=== PATIENT | female | born 1935 | race Caucasian/White ===

== ENCOUNTER 2017-03-21 14:32 | Inpatient (IN) | payer MEDICARE ==
[2017-03-21] MEDS ORDERED: HYDROmorphone INJ* 1 MG/ML CARPUJECT SYRINGE IV SLOW PU ONE (15:13)
[2017-03-21] MEDS ORDERED: Ondansetron INJ* 2 MG/ML VIAL IV ONE (15:13)
[2017-03-21] MEDS ORDERED: NS 0.9% 1000 ML* 1,000 ML IV ONE (15:13)
[2017-03-21 15:51] LABS: Hematocrit 31 % (35-47); Hemoglobin 9.9 g/dl (12.0-16.0); Mean Corpuscular HGB Conc 32 g/dl (31-36); Mean Corpuscular Hemoglobin 26 pg (27-31); Mean Corpuscular Volume 82 fL (80-97); Mean Platelet Volume 7 um3 (7.4-10.4); Red Blood Count 3.77 10^6/ul (4.0-5.4); Red Cell Distribution Width 18 % (10.5-15); White Blood Count 13.7 10^3/ul (3.5-10.8)
[2017-03-21 16:05] LABS: Albumin 3.3 g/dL (3.2-5.2); BUN/Creatinine Ratio 30.1 (8-20); C Reactive Protein 17.53 mg/L (< 5.00); Calcium 9.6 mg/dL (8.6-10.3); EGFR African American 84.6 (>60); EGFR Non-African American 65.8 (>60); Globulin 3.5 g/dL (2-4); Potassium 3.6 mmol/L (3.5-5.0); Total Bilirubin 0.3 mg/dL (0.2-1.0); Total Protein 6.8 g/dL (6.4-8.9)
[2017-03-21] MEDS ORDERED: Cefepime(*) 2 GM in NS 0.9% 50 ML* 50 ML IVPB ONE (16:31)
[2017-03-21] MEDS ORDERED: Vancomycin per Pharmacy* NOTE FOLLOW UP PRN (16:36)
--- NOTE | 2017-03-21 16:55 | ED ---
Reyes Piedra Thomas, scribed for Lakshmi Doran MD on 03/21/17 at 1520 . Lower Extremity - HPI Summary HPI Summary: The patient is an 81 y/o F who complains of R leg pain that began two months ago. She had an MRI two weeks ago. She is referred here from her pain clinic after the MRI showed a lesion in L4 and L5. I have spoken with neurosurgery about the need to have her admitted to [facility] [place] [facility] [place]. She does not smoke or use alcohol. She does have DM. She rates the pain 9/10. It is aggravated and alleviated by nothing. It is constant. - History of Current Complaint Chief Complaint: EDBackInjuryPain Stated Complaint: RT LEG PAIN Time Seen by Provider: 03/21/17 15:05 Hx Obtained From: Patient Onset of Pain: Days - onset two months ago Onset/Duration: Still Present Severity Initially: Moderate Pain Intensity: 9 Pain Scale Used: 0-10 Numeric Timing: Constant Location: Is Discrete @ - R leg Associated Signs And Symptoms: Positive: Negative Aggravating Factor(s): Nothing Alleviating Factor(s): Nothing - Allergies/Home Medications Allergies/Adverse Reactions: Allergies Allergy/AdvReac Type Severity Reaction Status Date / Time No Known Allergies Allergy Verified 03/21/17 14:19 PMH/Surg Hx/FS Hx/Imm Hx Previously Healthy: No Endocrine/Hematology History: Reports: Hx Diabetes Cardiovascular History: Reports: Hx Hypertension Denies: Hx Pacemaker/ICD History: Denies: Hx Renal Disease Sensory History: Denies: Hx Hearing Aid Psychiatric History: Denies: Hx Panic Disorder - Cancer History Cancer Type, Location and Year: BREAST -Rt - MASTECTOMY Hx Chemotherapy: No Hx Radiation Therapy: No - Surgical History Surgery Procedure, Year, and Place: Rt MASTECTOMY - CANCER. APPENDECTOMY. CARDIAC STENTS- PT DOES NOT HAVE INFORMATION ON THEM - ONLY SCAN 1.5T Infectious Disease History: No Infectious Disease History: Denies: Traveled Outside the [place] in Last 30 Days - Family History Known Family History: Positive: Hypertension - Social History Alcohol Use: None Substance Use Type: Reports: None Smoking Status (MU): Never Smoked Tobacco Review of Systems Negative: Fever Positive: Other - R leg pain onset two months ago All Other Systems Reviewed And Are Negative: Yes Physical Exam Triage Information Reviewed: Yes Vital Signs On Initial Exam: Initial Vitals Temp Pulse Resp BP Pulse Ox 99.5 F 84 20 157/52 99 03/21/17 14:40 03/21/17 14:40 03/21/17 14:40 03/21/17 14:40 03/21/17 14:40 Vital Signs Reviewed: Yes Appearance: Positive: Well-Appearing, No Pain Distress Skin: Positive: Warm, Skin Color Reflects Adequate Perfusion, Dry Eyes: Positive: EOMI, DEVYN ENT: Positive: Pharynx normal, TMs normal Neck: Positive: Supple, Nontender Respiratory/Lung Sounds: Positive: Clear to Auscultation, Breath Sounds Present. Negative: Rales, Rhonchi, Wheezes Cardiovascular: Positive: RRR, Other - No gallop. Negative: Murmur, Rub Abdomen Description: Positive: Nontender, Soft, Other: - No rebound. Negative: Distended, Guarding Bowel Sounds: Positive: Present Musculoskeletal: Positive: Strength/ROM Intact, Other - There is L4L5 tenderness.. Negative: Edema Left, Edema Right Neurological: Positive: Sensory/Motor Intact, Alert, Oriented to Person Place, Time, CN Intact II-III, Other - She has normal DTRs. Normal flexion in the right leg. Psychiatric: Positive: Affect/Mood Appropriate Diagnostics - Vital Signs Vital Signs Temp Pulse Resp BP Pulse Ox 03/21/17 14:40 99.5 F 84 20 157/52 99 - Laboratory Lab Results: Lab Results 03/21/17 03/21/17 03/21/17 Range/Units 15:42 15:42 15:42 WBC 13.7 H (3.5-10.8) 10^3/ul RBC 3.77 L (4.0-5.4) 10^6/ul Hgb 9.9 L (12.0-16.0) g/dl Hct 31 L (35-47) % MCV 82 (80-97) fL MCH 26 L (27-31) pg MCHC 32 (31-36) g/dl RDW 18 H (10.5-15) % Plt Count 333 (150-450) 10^3/ul MPV 7 L (7.4-10.4) um3 Neut % (Auto) 76.0 (38-83) % Lymph % (Auto) 18.6 L (25-47) % [place] % (Auto) 4.8 (1-9) % Eos % (Auto) 0.1 (0-6) % Baso % (Auto) 0.5 (0-2) % Absolute Neuts (auto) 10.4 H (1.5-7.7) 10^3/ul Absolute Lymphs (auto) 2.5 (1.0-4.8) 10^3/ul Absolute Monos (auto) 0.7 (0-0.8) 10^3/ul Absolute Eos (auto) 0 (0-0.6) 10^3/ul Absolute Basos (auto) 0.1 (0-0.2) 10^3/ul Absolute Nucleated RBC 0.01 10^3/ul Nucleated RBC % 0 ESR Pending INR (Anticoag Therapy) 0.94 (0.89-1.11) Sodium 135 (133-145) mmol/L Potassium 3.6 (3.5-5.0) mmol/L Chloride 96 L (101-111) mmol/L Carbon Dioxide 31 (22-32) mmol/L Anion Gap 8 (2-11) mmol/L BUN 25 H (6-24) mg/dL Creatinine 0.83 (0.51-0.95) mg/dL Est GFR ( Amer) 84.6 (>60) Est GFR (Non-Af Amer) 65.8 (>60) BUN/Creatinine Ratio 30.1 H (8-20) Glucose 103 H (70-100) mg/dL Lactic Acid (0.5-2.0) mmol/L Calcium 9.6 (8.6-10.3) mg/dL Total Bilirubin 0.30 (0.2-1.0) mg/dL AST 13 (13-39) U/L ALT 12 (7-52) U/L Alkaline Phosphatase 71 (34-104) U/L C-Reactive Protein 17.53 H (< 5.00) mg/L Total Protein 6.8 (6.4-8.9) g/dL Albumin 3.3 (3.2-5.2) g/dL Globulin 3.5 (2-4) g/dL Albumin/Globulin Ratio 0.9 L (1-3) 03/21/ Range/Units 15:42 WBC (3.5-10.8) 10^3/ul RBC (4.0-5.4) 10^6/ul Hgb (12.0-16.0) g/dl Hct (35-47) % MCV (80-97) fL MCH (27-31) pg MCHC (31-36) g/dl RDW (10.5-15) % Plt Count (150-450) 10^3/ul MPV (7.4-10.4) um3 Neut % (Auto) (38-83) % Lymph % (Auto) (25-47) % [place] % (Auto) (1-9) % Eos % (Auto) (0-6) % Baso % (Auto) (0-2) % Absolute Neuts (auto) (1.5-7.7) 10^3/ul Absolute Lymphs (auto) (1.0-4.8) 10^3/ul Absolute Monos (auto) (0-0.8) 10^3/ul Absolute Eos (auto) (0-0.6) 10^3/ul Absolute Basos (auto) (0-0.2) 10^3/ul Absolute Nucleated RBC 10^3/ul Nucleated RBC % ESR INR (Anticoag Therapy) (0.89-1.11) Sodium (133-145) mmol/L Potassium (3.5-5.0) mmol/L Chloride (101-111) mmol/L Carbon Dioxide (22-32) mmol/L Anion Gap (2-11) mmol/L BUN (6-24) mg/dL Creatinine (0.51-0.95) mg/dL Est GFR ( Amer) (>60) Est GFR (Non-Af Amer) (>60) BUN/Creatinine Ratio (8-20) Glucose (70-100) mg/dL Lactic Acid 1.1 (0.5-2.0) mmol/L Calcium (8.6-10.3) mg/dL Total Bilirubin (0.2-1.0) mg/dL AST (13-39) U/L ALT (7-52) U/L Alkaline Phosphatase (34-104) U/L C-Reactive Protein (< 5.00) mg/L Total Protein (6.4-8.9) g/dL Albumin (3.2-5.2) g/dL Globulin (2-4) g/dL Albumin/Globulin Ratio (1-3) Result Diagrams: 03/21/17 15:42 03/21/17 15:42 Lab Statement: Any lab studies that have been ordered have been reviewed, and results considered in the medical decision making process. Lower Extremity Course/Dx - Course Course Of Treatment: 81 yo female with diabetes and low back / right leg pain since December sent to see Dr. Esquivel at the pain clinic MRI done 2 weeks ago shows enhancing lesion at L4-L5. Case has been discussed with Dr. Brandon for admission, plan is for biopsy first and then abx if need be as osteomyelitis is in the differential. Pt is neurologically intact - Diagnoses Provider Diagnoses: Back pain - Physician Notifications Discussed Care Of Patient With: Sampson Brandon Time Discussed With Above Provider: 16:35 Instructed by Provider To: Other - I consulted with Dr. Brandon, hospitalist, who will admit the patient to [facility] [place]. Discharge - Discharge Plan Condition: Fair Disposition: ADMITTED TO [facility] Referrals: Joie Maddox [Primary Care Provider] - The documentation as recorded by the Reyes rivas Thomas accurately reflects the service I personally performed and the decisions made by me, Lakshmi Doran MD.
[2017-03-21] MEDS ORDERED: Vancomycin(*) 750 MG in NS 0.9% 250 ML* 250 ML IVPB ONE (17:00)
[2017-03-21] MEDS ORDERED: Vancomycin(*) 0 MG in NS 0.9% 250 ML* 250 ML IVPB SCH (17:00)
[2017-03-21] MEDS ORDERED: Vancomycin(*) 1,000 MG VIAL IVPB SCH (17:00)
[2017-03-21 17:04] LABS: Erythrocyte Sed Rate 63 mm/Hr (0-40)
[2017-03-21] MEDS ORDERED: diPHENhydraMINE IV* 50 MG/ML 1 ml VIAL (BENADRYL) IV PRN (17:42)
[2017-03-21] MEDS ORDERED: diPHENhydraMINE IV* 50 MG/ML 1 ml VIAL (BENADRYL) ONE (17:44)
[2017-03-21] MEDS: NS 0.9% 1000 ML* 1,000 ML IV SCH (20:18)
[2017-03-21] MEDS: Cefepime(*) 2 GM in NS 0.9% 50 ML* 50 ML IVPB SCH (20:19)
[2017-03-21] MEDS: fentaNYL Patch Check Q Shift 1 NOTE SCH (20:24)
[2017-03-21] MEDS ORDERED: Docusate CAP* 100 MG PO SCH (21:00)
[2017-03-21] MEDS: Docusate CAP* 100 MG PO SCH (23:03)
[2017-03-21] MEDS: Heparin VIAL(*) 5000 UNITS/ML VIAL (FIVE THOUSAND) SUBCUT SCH (23:07)
[2017-03-22] MEDS: Vancomycin(*) 750 MG in NS 0.9% 250 ML* 250 ML IVPB SCH ×3 (01:40→17:34)
[2017-03-22] MEDS: Heparin VIAL(*) 5000 UNITS/ML VIAL (FIVE THOUSAND) SUBCUT SCH ×3 (05:48→20:09)
[2017-03-22] MEDS: oxyCODONE/Acetamin 5/325 MG* TAB PO PRN ×2 (05:53→14:06)
[2017-03-22] MEDS: fentaNYL Patch Check Q Shift 1 NOTE SCH ×2 (07:33→18:47)
--- NOTE | 2017-03-22 08:43 | PN ---
Progress Note - Progress Note Date of Service: 03/22/17 SOAP: Subjective: [] Patient with several week history of progressive back pain. Complains of severe right leg pain with activity. No left leg pain. No bowel or bladder issues. MRI done 2 weeks ago suggesting stenosis with possible infection. Patient showed up in pain clinic yesterday. No recent febrile illness or infection by history. 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 Plan: []She will need surgery Would recommend antibiotic treatment with Vancomycin Plan to decompress Mon if medically cleared
[2017-03-22 09:21] LABS: Hematocrit 30 % (35-47); Hemoglobin 9.7 g/dl (12.0-16.0); Mean Corpuscular HGB Conc 33 g/dl (31-36); Mean Corpuscular Hemoglobin 27 pg (27-31); Mean Corpuscular Volume 82 fL (80-97); Mean Platelet Volume 8 um3 (7.4-10.4); Red Blood Count 3.63 10^6/ul (4.0-5.4); Red Cell Distribution Width 18 % (10.5-15); White Blood Count 10.7 10^3/ul (3.5-10.8)
[2017-03-22 09:36] LABS: Albumin 2.9 g/dL (3.2-5.2); BUN/Creatinine Ratio 21.6 (8-20); Calcium 8.3 mg/dL (8.6-10.3); EGFR African American 96.6 (>60); EGFR Non-African American 75.1 (>60); Globulin 2.9 g/dL (2-4); Total Bilirubin 0.6 mg/dL (0.2-1.0); Total Protein 5.8 g/dL (6.4-8.9)
[2017-03-22] MEDS: Multivitamins/Minerals TAB PO SCH (09:59)
[2017-03-22] MEDS: predniSONE TAB* 10 MG PO SCH (10:00)
[2017-03-22] MEDS: Atorvastatin* 40 MG TAB PO SCH (10:00)
[2017-03-22] MEDS: Donepezil TAB* 5 MG PO SCH (10:00)
[2017-03-22] MEDS: Furosemide TAB* 20 MG PO SCH (10:00)
[2017-03-22] MEDS: Docusate CAP* 100 MG PO SCH ×2 (10:00→20:08)
[2017-03-22] MEDS: Calcium/Vitamin D TAB 250/125* TAB PO SCH (10:01)
[2017-03-22] MEDS: Magnesium Oxide TAB* 400 MG PO SCH (10:03)
[2017-03-22] MEDS: Famotidine TAB* 20 MG PO SCH (10:03)
[2017-03-22] MEDS: HYDROmorphone INJ* 1 MG/ML CARPUJECT SYRINGE IV SLOW PU PRN ×2 (10:06→20:06)
[2017-03-22 10:56] LABS: C Reactive Protein 82.02 mg/L (< 5.00)
[2017-03-22] MEDS ORDERED: Vancomycin Trough Check NOTE FOLLOW UP ONE (16:30)
[2017-03-22] MEDS: Cefepime(*) 2 GM in NS 0.9% 50 ML* 50 ML IVPB SCH (21:50)
[2017-03-23] MEDS: Vancomycin(*) 750 MG in NS 0.9% 250 ML* 250 ML IVPB SCH ×3 (00:30→17:46)
[2017-03-23] MEDS: NS 0.9% 1000 ML* 1,000 ML IV SCH ×2 (00:30→10:53)
[2017-03-23] MEDS: HYDROmorphone INJ* 1 MG/ML CARPUJECT SYRINGE IV SLOW PU PRN ×4 (03:55→21:12)
[2017-03-23] MEDS: Heparin VIAL(*) 5000 UNITS/ML VIAL (FIVE THOUSAND) SUBCUT SCH (05:23)
--- NOTE | 2017-03-23 09:33 | PN ---
Progress Note - Progress Note Date of Service: 03/23/17 SOAP: Subjective: []C/O severe right leg pain this am Did not discuss proposed surgery with her she doesnt think No complaints of left leg pain Objective: []Motor intact Severe right leg pain Assessment: []Stable pending surgery 03/24 Plan: []Surgery 03/[address] Brandon who feels she will be medically cleared for surgery 03/24
[2017-03-23] MEDS: Magnesium Oxide TAB* 400 MG PO SCH (10:56)
[2017-03-23] MEDS: Calcium/Vitamin D TAB 250/125* TAB PO SCH (10:56)
[2017-03-23] MEDS: Docusate CAP* 100 MG PO SCH ×2 (10:56→20:00)
[2017-03-23] MEDS: Famotidine TAB* 20 MG PO SCH (10:56)
[2017-03-23] MEDS: Furosemide TAB* 20 MG PO SCH (10:57)
[2017-03-23] MEDS: predniSONE TAB* 10 MG PO SCH (10:57)
[2017-03-23] MEDS: Donepezil TAB* 5 MG PO SCH (10:57)
[2017-03-23] MEDS: Multivitamins/Minerals TAB PO SCH (10:57)
[2017-03-23] MEDS: Atorvastatin* 40 MG TAB PO SCH (10:57)
[2017-03-23] MEDS: oxyCODONE/Acetamin 5/325 MG* TAB PO PRN ×2 (11:01→20:00)
--- NOTE | 2017-03-23 12:54 | PN ---
Subjective Date of Service: 03/23/17 Interval History: . pain with movement described no other s/sx reported plan for surgery early next week tolerating abx and iv opiates well. Family History: Unchanged from Admission Social History: Unchanged from Admission Past Medical History: Unchanged from Admission Objective Active Medications: . Acetaminophen (Tylenol Tab*) 650 mg PO Q4H PRN PRN Reason: FEVER/PAIN Atorvastatin Calcium (Lipitor*) 40 mg PO DAILY [facility] Last Admin: 03/23/17 10:57 Dose: 40 mg Calcium/Vitamin D (Oscal D Tab 250/125*) 2 tab PO DAILY [facility] Last Admin: 03/23/17 10:56 Dose: 2 tab Diphenhydramine HCl (Benadryl Iv*) 25 mg IV Q6H PRN PRN Reason: PRURITIS Last Admin: 03/21/17 17:45 Dose: 25 mg Docusate Sodium (Colace Cap*) 100 mg PO BID [facility] Last Admin: 03/23/17 10:56 Dose: 100 mg Donepezil HCl (Aricept Tab*) 5 mg PO DAILY [facility] Last Admin: 03/23/17 10:57 Dose: 5 mg Famotidine (Pepcid Tab*) 20 mg PO DAILY [facility] Last Admin: 03/23/17 10:56 Dose: 20 mg Fentanyl (Duragesic Patch 25 Mcg/Hr*) 25 mcg TRANSDERM Q72H [facility] Furosemide (Lasix Tab*) 20 mg PO DAILY [facility] Last Admin: 03/23/17 10:57 Dose: 20 mg Hydromorphone HCl (Dilaudid Inj*) 1 mg IV SLOW PU Q4H PRN PRN Reason: PAIN Last Admin: 03/23/17 09:17 Dose: 1 mg Sodium Chloride (Ns 0.9% 1000 Ml*) 1,000 mls @ 75 mls/hr IV PER RATE [facility] Last Admin: 03/23/17 10:53 Dose: 75 mls/hr Cefepime HCl 2 gm/ Sodium (Chloride) 50 mls @ 100 mls/hr IVPB Q24H [facility] Last Admin: 03/22/17 21:50 Dose: 100 mls/hr Vancomycin HCl 750 mg/ Sodium (Chloride) 250 mls @ 166.667 mls/hr IVPB Q8H [facility] Last Admin: 03/23/17 10:53 Dose: 166.667 mls/hr Magnesium Oxide (Magox 400 Tab*) 400 mg PO DAILY [facility] Last Admin: 03/23/17 10:56 Dose: 400 mg Multivitamins/Minerals (Theragran/Minerals Tab*) 1 tab PO DAILY [facility] Last Admin: 03/23/17 10:57 Dose: 1 tab Oxycodone/Acetaminophen (Percocet 5/325 Tab*) 1 tab PO Q8H PRN PRN Reason: PAIN Last Admin: 03/23/17 11:01 Dose: 1 tab Pharmacy Consult (Vancomycin Per Pharmacy*) 1 note FOLLOW UP . PRN PRN Reason: PER PROTOCOL Pharmacy Profile Note (Fentanyl Patch Check Q Shift) 1 note N/A 0700,1900 [facility] Last Admin: 03/22/17 18:47 Dose: 1 note Prednisone (Deltasone Tab*) 10 mg PO DAILY [facility] Last Admin: 03/23/17 10:57 Dose: 10 mg . Vital Signs 03/22/17 03/22/17 03/23/17 21:06 23:34 03:55 Temperature 98.7 F Pulse Rate 67 Respiratory 18 16 18 Rate Blood Pressure 111/42 (mmHg) O2 Sat by Pulse 100 Oximetry 03/23/17 03/23/17 03/23/17 04:55 09:17 11:01 Temperature Pulse Rate Respiratory 20 20 14 Rate Blood Pressure (mmHg) O2 Sat by Pulse Oximetry Oxygen Devices in Use Now: None Appearance: NAD at rest Eyes: No Scleral Icterus Ears/Nose/Mouth/Throat: Clear Oropharnyx Neck: Trachea Midline Respiratory: Symmetrical Chest Expansion and Respiratory Effort Cardiovascular: NL Sounds; No Murmurs; No JVD Abdominal: NL Sounds; No Tenderness; No Distention Extremities: No Edema Skin: No Rash or Ulcers Neurological: Alert and Oriented x 3 Lines/Tubes/Other Access: Clean, Dry and Intact Peripheral IV Nutrition: Taking PO's Result Diagrams: 03/22/17 09:15 03/22/17 09:15 Microbiology and Other Data: Microbiology 03/21/17 17:07 Aerobic Blood Culture - Preliminary Blood Venous Staphylococcus Epidermidis Anaerobic Blood Culture - Final Staphylococcus Epidermidis Blood Culture - Final Blood MRSA/MSSA (PCR) - Final Mrsa Negative S.aureus Negative 03/21/17 23:28 Aerobic Blood Culture - Final Blood Venous Staphylococcus Epidermidis Anaerobic Blood Culture - Final Staphylococcus Epidermidis Blood Culture - Final Assess/Plan/Problems-Billing . Assessment: 81 yo female with osteomyelitis vs epidural abscess and BCX growing staph epi... Plan for neurosurgery early next week. Appropriate cardiac risk for surgery -- recognizing she did well with cardiac surgery earlier this year. - Patient Problems (1) Diabetes type 2, controlled Current Visit: Yes Status: Acute Priority: High Code(s): E11.9 - TYPE 2 DIABETES MELLITUS WITHOUT COMPLICATIONS Comment: - Add long acting agent and sliding scale in anticipation of surgery - hold metformin in hospital - [facility] diet - taper off prednisone... (2) Epidural abscess Current Visit: Yes Status: Acute Priority: High Code(s): G06.2 - EXTRADURAL AND SUBDURAL ABSCESS, UNSPECIFIED Comment: - IV Vanco and Cefepime - BCX growing staph epi --> can downgrade abx...likely ceftriaxone...will d/w ID (3) Intractable low back pain Current Visit: Yes Status: Acute Priority: High Code(s): M54.5 - LOW BACK PAIN Comment: - IV and transderm. opiates (4) Hyperlipidemia Current Visit: Yes Status: Acute Code(s): E78.5 - HYPERLIPIDEMIA, UNSPECIFIED SNOMED Code(s): 63776887
--- NOTE | 2017-03-23 12:55 | PN ---
Subjective Interval History: pain with movement described no other s/sx reported plan for surgery ealry next week tolerating abx and iv opiates well. bcx growing staph epi... . Family History: Unchanged from Admission Social History: Unchanged from Admission Past Medical History: Unchanged from Admission Objective Active Medications: . Acetaminophen (Tylenol Tab*) 650 mg PO Q4H PRN PRN Reason: FEVER/PAIN Atorvastatin Calcium (Lipitor*) 40 mg PO DAILY [facility] Last Admin: 03/23/17 10:57 Dose: 40 mg Calcium/Vitamin D (Oscal D Tab 250/125*) 2 tab PO DAILY [facility] Last Admin: 03/23/17 10:56 Dose: 2 tab Diphenhydramine HCl (Benadryl Iv*) 25 mg IV Q6H PRN PRN Reason: PRURITIS Last Admin: 03/21/17 17:45 Dose: 25 mg Docusate Sodium (Colace Cap*) 100 mg PO BID [facility] Last Admin: 03/23/17 10:56 Dose: 100 mg Donepezil HCl (Aricept Tab*) 5 mg PO DAILY [facility] Last Admin: 03/23/17 10:57 Dose: 5 mg Famotidine (Pepcid Tab*) 20 mg PO DAILY [facility] Last Admin: 03/23/17 10:56 Dose: 20 mg Fentanyl (Duragesic Patch 25 Mcg/Hr*) 25 mcg TRANSDERM Q72H [facility] Furosemide (Lasix Tab*) 20 mg PO DAILY [facility] Last Admin: 03/23/17 10:57 Dose: 20 mg Hydromorphone HCl (Dilaudid Inj*) 1 mg IV SLOW PU Q4H PRN PRN Reason: PAIN Last Admin: 03/23/17 09:17 Dose: 1 mg Sodium Chloride (Ns 0.9% 1000 Ml*) 1,000 mls @ 75 mls/hr IV PER RATE [facility] Last Admin: 03/23/17 10:53 Dose: 75 mls/hr Cefepime HCl 2 gm/ Sodium (Chloride) 50 mls @ 100 mls/hr IVPB Q24H [facility] Last Admin: 03/22/17 21:50 Dose: 100 mls/hr Vancomycin HCl 750 mg/ Sodium (Chloride) 250 mls @ 166.667 mls/hr IVPB Q8H [facility] Last Admin: 03/23/17 10:53 Dose: 166.667 mls/hr Magnesium Oxide (Magox 400 Tab*) 400 mg PO DAILY [facility] Last Admin: 03/23/17 10:56 Dose: 400 mg Multivitamins/Minerals (Theragran/Minerals Tab*) 1 tab PO DAILY [facility] Last Admin: 03/23/17 10:57 Dose: 1 tab Oxycodone/Acetaminophen (Percocet 5/325 Tab*) 1 tab PO Q8H PRN PRN Reason: PAIN Last Admin: 03/23/17 11:01 Dose: 1 tab Pharmacy Consult (Vancomycin Per Pharmacy*) 1 note FOLLOW UP . PRN PRN Reason: PER PROTOCOL Pharmacy Profile Note (Fentanyl Patch Check Q Shift) 1 note N/A 0700,1900 [facility] Last Admin: 03/22/17 18:47 Dose: 1 note Prednisone (Deltasone Tab*) 10 mg PO DAILY [facility] Last Admin: 03/23/17 10:57 Dose: 10 mg . Vital Signs 03/22/17 03/22/17 03/23/17 21:06 23:34 03:55 Temperature 98.7 F Pulse Rate 67 Respiratory 18 16 18 Rate Blood Pressure 111/42 (mmHg) O2 Sat by Pulse 100 Oximetry 03/23/17 03/23/17 03/23/17 04:55 09:17 11:01 Temperature Pulse Rate Respiratory 20 20 14 Rate Blood Pressure (mmHg) O2 Sat by Pulse Oximetry Oxygen Devices in Use Now: None Appearance: NAD Eyes: No Scleral Icterus Ears/Nose/Mouth/Throat: Clear Oropharnyx Respiratory: Symmetrical Chest Expansion and Respiratory Effort Cardiovascular: NL Sounds; No Murmurs; No JVD Abdominal: NL Sounds; No Tenderness; No Distention Extremities: No Edema Skin: No Rash or Ulcers Neurological: Alert and Oriented x 3 Lines/Tubes/Other Access: Clean, Dry and Intact Peripheral IV Nutrition: Taking PO's Result Diagrams: 03/22/17 09:15 03/22/17 09:15 Additional Lab and Data: . Microbiology and Other Data: Microbiology 03/21/17 17:07 Aerobic Blood Culture - Preliminary Blood Venous Staphylococcus Epidermidis Anaerobic Blood Culture - Final Staphylococcus Epidermidis Blood Culture - Final Blood MRSA/MSSA (PCR) - Final Mrsa Negative S.aureus Negative 03/21/17 23:28 Aerobic Blood Culture - Final Blood Venous Staphylococcus Epidermidis Anaerobic Blood Culture - Final Staphylococcus Epidermidis Blood Culture - Final Assess/Plan/Problems-Billing . Assessment: 81 yo female with osteomyelitis vs epidural abscess and BCX growing staph epi... Plan for neurosurgery early next week. Appropriate cardiac risk for proceeding with surgery -- recognizing she did well with cardiac surgery earlier this year -- also recognizing the need to accomplish infectious source control. On statin Glucose levels are favorable - Patient Problems (1) Diabetes type 2, controlled Current Visit: Yes Status: Acute Priority: High Code(s): E11.9 - TYPE 2 DIABETES MELLITUS WITHOUT COMPLICATIONS Comment: - Add long acting agent and sliding scale in anticipation of surgery - hold metformin in hospital - [facility] diet - taper off prednisone... (2) Epidural abscess Current Visit: Yes Status: Acute Priority: High Code(s): G06.2 - EXTRADURAL AND SUBDURAL ABSCESS, UNSPECIFIED Comment: - IV Vanco and Cefepime - BCX growing staph epi --> can downgrade abx...likely ceftriaxone...will d/w ID (3) Intractable low back pain Current Visit: Yes Status: Acute Priority: High Code(s): M54.5 - LOW BACK PAIN Comment: - IV & transderm. opiates (4) Hyperlipidemia Current Visit: Yes Status: Acute Code(s): E78.5 - HYPERLIPIDEMIA, UNSPECIFIED SNOMED Code(s): 76757098 Comment: - continue statin therapy
[2017-03-23] MEDS ORDERED: Dextrose 50% Syringe 50 ML* 25 GM/50 ML SYRINGE IV PUSH PRN (12:57)
[2017-03-23] MEDS: fentaNYL Patch Check Q Shift 1 NOTE SCH ×2 (16:12→18:45)
[2017-03-23] MEDS: Insulin LISPRO* 1 UNITS UNIT SUBCUT SCH ×2 (17:45→20:04)
[2017-03-23] MEDS: Acetaminophen TAB* 325 MG PO PRN (18:00)
[2017-03-23] MEDS: fentaNYL PATCH 25 MCG/HR TRANSDERM SCH (18:44)
--- NOTE | 2017-03-23 19:16 | HP ---
CC: KIAH Montenegro* HISTORY AND PHYSICAL: DATE OF ADMISSION: 03/21/17 TIME OF MY EVALUATION: 4 p.m. PRIMARY CARE PROVIDER: KIAH Montenegro. CHIEF COMPLAINT: Excruciating right leg pain. HISTORY OF PRESENT ILLNESS: Ms. Barclay is an 81-year-old female who was referred to the [facility] by nurse practitioner Partha. The patient states that she has had severe pain since December. The patient has been experiencing progressively worse pain during that time. She had an MRI on 03/10, and this was sent to [facility] for review for [id number] spinal canal stenosis and right neuroforaminal stenosis. The patient was in exquisite pain and unable to walk effectively. Pain medications were ineffective. She has been on a course of oral steroids and is approximately done with that taper. She is using a fentanyl patch as well as oxycodone and acetaminophen consistently. The medications are not helping. She cannot ambulate and lying down makes the pain somewhat better, so does not move. In review of the MRI, there was concern with the neuroradiologist that there was an epidural collection that might represent osteomyelitis or epidural abscess. The patient was referred to the emergency room for admission and the hospitalist were contacted to facilitate. PAST MEDICAL HISTORY: 1. Hyperlipidemia. 2. AVR in June 2016. 3. Hypertension. 4. Diabetes. 5. Breast cancer. OUTPATIENT MEDICATIONS: 1. Prednisone 10 mg by mouth daily with the taper ending Friday03/24/17. 2. Oxycodone 5/325 mg by mouth every 8 hours. 3. Fentanyl patch 25 mcg every 3 days. 4. Metformin 750 mg at night. 5. Donepezil 5 mg tablet by mouth daily. 6. Lipitor 40 mg by mouth daily. 7. Stool softener - Colace 100 mg by mouth twice daily. 8. Ranitidine 150 mg by mouth daily. 9. Furosemide 20 mg by mouth daily. 10. Multivitamin one tablet by mouth once daily. ALLERGIES: No known drug allergies. FAMILY HISTORY: Reviewed, but noncontributory based on this current presentation. SOCIAL HISTORY: The patient is retired. There is no alcohol or tobacco use. REVIEW OF SYSTEMS: A 14 point review of systems was accomplished at the bedside. This was largely negative except for the pertinent positives mentioned above in the HPI and past medical history with her right leg dominating all of her answers. PHYSICAL EXAMINATION GENERAL APPEARANCE: Elderly woman appears stated age, in no apparent distress. Poor medical office assistant. VITAL SIGNS: Temperature 99.5 down to 97.8 following Tylenol administration, pulse rate consistently 70s to 80s, respirations 20, oxygen saturation high 90s on room air, blood pressure 120s to 130s/50s to 70s. HEENT: Oropharynx is clear. Mucous membranes are moist. LUNGS: Clear anteriorly and posteriorly. She has a sternal scar consistent with a previous cardiac surgery. NEUROLOGIC: She does not have any perceivable weakness, I did not ambulate her secondary to her pain. PSYCH: Normal affect. No acute anxiety or depression. She is accompanied by her . SKIN: Dry and intact. No rashes, lesions, or breakdown. There is no point tenderness over her spine. DIAGNOSTIC STUDIES/LAB DATA: White blood cell count elevated at 13.7, hemoglobin 9.9, platelets 333. Blood chemistries generally unremarkable save an elevated BUN- to-creatinine ratio with 25/0.83 and a ratio of 30.1, glucose 103, CRP elevated at 17.53. LFTs are normal. Protein levels are normal with a total protein and albumin of 6.8 and 3.3, respectively. A coagulation parameters were normal with an INR of 0.94. The MRI was described in the HPI. IMPRESSION AND PLAN: Ms. Barclay is an 82-year-old female who was admitted for potential osteomyelitis versus epidural abscess versus diskitis. MRI results are being reviewed by Dr. Abhinav Daniels of Neurosurgery and the neuroradiology team. The plan at this point is to admit for a possible biopsy versus debridement with Neurosurgery in the next few days. In terms of treating her osteomyelitis, I am going to start vancomycin and cefepime as a routine broad spectrum antibiotics. Blood cultures were drawn and are pending. The patient will have a pain control with her fentanyl and IV opioids. The patient will continue her prednisone taper until 03/24/17. I may continue that if she is going directly to surgery to decrease the risk of adrenal insufficiency though that would be small. We will continue other outpatient medications as prescribed. CARDIAC RISK STRATIFICATION: With the exception of the patient's recent aortic valve repair for stenosis and her diabetes, she has no obvious risk factors, obviously her age puts her at higher risk, but she has a good normal exercise tolerance and she denies any chest pain or shortness of breath whatsoever. She tolerated cardiac surgery within the year and I think there is not any indication for a cardiac workup. She is on statin and is not hypertensive. There is no indication of ongoing pulmonary disease nor history of such. Given her presentation and inability to walk, risk, benefit, analysis favors surgery at the earliest possible time and I do not believe further cardiac testing is in order. TIME SPENT: Total time taken to admit Ms. Barclay was 75 minutes, greater than half that time was spent going over the history and physical examination at the bedside with the patient and her and explaining plan of care directly to them. [id number]/[facility] #: [id number] JACOB
[2017-03-23] MEDS: Cefepime(*) 2 GM in NS 0.9% 50 ML* 50 ML IVPB SCH (20:01)
[2017-03-23] MEDS ORDERED: Ketorolac INJ* 15 MG/ML 1 ML VIAL IV ONE (21:42)
[2017-03-23] MEDS ORDERED: Ketorolac INJ* 15 MG/ML 1 ML VIAL ONE (22:01)
[2017-03-24] MEDS: Vancomycin(*) 750 MG in NS 0.9% 250 ML* 250 ML IVPB SCH ×3 (01:13→16:49)
[2017-03-24] MEDS: HYDROmorphone INJ* 1 MG/ML CARPUJECT SYRINGE IV SLOW PU PRN ×2 (05:25→11:41)
[2017-03-24] MEDS: NS 0.9% 1000 ML* 1,000 ML IV SCH (05:25)
[2017-03-24] MEDS: Insulin LISPRO* 1 UNITS UNIT SUBCUT SCH ×4 (09:01→21:47)
--- NOTE | 2017-03-24 11:34 | ECHO ---
Patient: SHANTAL THORNE [facility] Rec#: [id number] : 1935 Date: 03/24/2017 Age: 81y Height: 160.02 cm / 63.0 in Weight: 49.44 kg / 109.0 lbs Sex: F BSA: 1.49 Room#: 417 Admit Date#: 03/21/2017 Type: Inpatient Referring: Raul Faulkner MD Reading: Abiel Zacarias MD Call Center Support Representative: Oly Jacques,MEKACS,RDMS CC: Cedrick Chavis NP CC: Shon Mcclure MD Transthoracic Echocardiogram Indication: Bacteremia BP: 130/48 HR: 84 Rhythm: NSR Findings History: AOV replacement, HTN, HLD, DM, breast cancer Technical Comments: The study quality is fair. Left Ventricle: The left ventricular chamber size is normal. Mild concentric left ventricular hypertrophy is observed. Global left ventricular wall motion and contractility are within normal limits. The estimated ejection fraction is 55-60%. Abnormal left ventricular diastolic function is observed. Left Atrium: The left atrium is mildly dilated. Right Ventricle: The right ventricular chamber size and systolic function are within normal limits. Right Atrium: The right atrium appears normal. Aortic Valve: There is no evidence of aortic regurgitation. The mean gradient of the aortic valve is 12.8 mmHg. The aortic valve area, by peak velocities, is calculated at 1.3 cm2. A bio-prosthetic aortic valve is present. The bio-prosthetic aortic valve appears to be functioning normally. Mitral Valve: There is mitral annular calcification. The mitral valve leaflets are mildly thickened. There is trace to mild mitral regurgitation. There is no evidence of mitral stenosis. Tricuspid Valve: The tricuspid valve leaflets are normal. There is mild to moderate tricuspid regurgitation. There is evidence of mild pulmonary hypertension. Pulmonic Valve: The pulmonic valve structure is not well visualized. There is mild to moderate pulmonic regurgitation. Pericardium: There is no significant pericardial effusion. Aorta: The aortic root appears normal. The aortic arch is not well visualized. Pulmonary Artery: The main pulmonary artery is not well visualized. Venous: The inferior vena cava appears normal in size. There is a greater than 50% respiratory change in the inferior vena cava dimension. Conclusions Global left ventricular wall motion and contractility are within normal limits. The estimated ejection fraction is 55-60%. A bio-prosthetic aortic valve is present. The mean gradient of the aortic valve is 12.8 mmHg. The bio-prosthetic aortic valve appears to be functioning normally. There is trace to mild mitral regurgitation. There is mild to moderate tricuspid regurgitation. There is evidence of mild pulmonary hypertension. There is no significant pericardial effusion. Image quaility not good enough to exclude diagnosis of valvular masses/vegetations Measurements Name Value Normal Range RVIDd (AP) 2D 2.4 cm (0.9 - 2.6) RVDdMajor (2D) 2.5 cm (2.2 - 4.4) RAd ISD 4CH 4.8 cm (3.4 - 4.9) RA (A4C)W 3.3 cm (2.9 - 4.6) IVSd (2D) 1.1 cm (0.6 - 1) LVPWd (2D) 1.2 cm (0.6 - 1) LVIDd (2D) 3.6 cm (3.6 - 5.4) LVIDs (2D) 2.1 cm - LV FS (2D) 43 % (25 - 45) Aortic Annulus 1.7 cm (1.4 - 2.6) Ao root diameter (2D) 2.4 cm (2.1 - 3.5) Ascending Ao 2.3 cm (2.1 - 3.4) LA dimension (AP) 2D 3.9 cm (2.3 - 3.8) LAd ISD 4CH 5.1 cm (2.9 - 5.3) LA ISD 4CH W 4 cm (2.5 - 4.5) Name Value Normal Range LA ESV SP 4CH (A/L) 45.78 ml - LA ESV SP 2CH (A/L) 64.39 ml - LA ESV BP (A/L) 54.34 ml - LA ESV BP (A/L) index 36 ml/m2 - LA ESV SP 4CH (MOD) 42.47 ml - LA ESV SP 2CH (MOD) 60.35 ml - Name Value Normal Range MV E-wave Vmax 1.4 m/sec - MV deceleration time 187 msec - MV A-wave Vmax 1 m/sec - MV E:A ratio 1.4 ratio - P. vein S-wave Vmax 0.4 m/sec - P. vein D-wave Vmax 0.5 m/sec - P. vein S:D Vmax ratio 0.8 ratio - P. vein A-wave duration 66.5 msec - Name Value Normal Range AV Vmax 2.4 m/sec - AV VTI 59 cm - AV peak gradient 23 mmHg - AV mean gradient 12.8 mmHg - LVOT diameter 2 cm - LVOT Vmax 1 m/sec - LVOT VTI 25.5 cm - LVOT peak gradient 4 mmHg - LVOT mean gradient 2 mmHg - SV LVOT 78.33 ml - GUNNAR (continuity Vmax) 1.3 cm2 - GUNNAR (continuity VTI) 1.4 cm2 - Name Value Normal Range MV Vmax 1.7 m/sec - MV VTI 41.7 cm - MV peak gradient 11.5 mmHg - MV mean gradient 3.9 mmHg - MV PHT 52 msec - MVA (PHT) 4.2 cm2 - MVA (continuity VTI) 1.9 cm2 - Name Value Normal Range TR Vmax 3.1 m/sec - TR peak gradient 38 mmHg - RAP 3 mmHg - RVSP 41 mmHg - IVC diameter 1.6 cm - Name Value Normal Range PV Vmax 0.8 m/sec - PV peak gradient 2.6 mmHg -
[2017-03-24] MEDS: Famotidine TAB* 20 MG PO SCH (11:43)
[2017-03-24] MEDS: Furosemide TAB* 20 MG PO SCH (11:43)
[2017-03-24] MEDS: Calcium/Vitamin D TAB 250/125* TAB PO SCH (11:43)
[2017-03-24] MEDS: Multivitamins/Minerals TAB PO SCH (11:43)
[2017-03-24] MEDS: Donepezil TAB* 5 MG PO SCH (11:44)
[2017-03-24] MEDS: Atorvastatin* 40 MG TAB PO SCH (11:44)
[2017-03-24] MEDS: predniSONE TAB* 10 MG PO SCH (11:44)
[2017-03-24] MEDS: Magnesium Oxide TAB* 400 MG PO SCH (11:44)
[2017-03-24] MEDS: Docusate CAP* 100 MG PO SCH ×2 (11:44→21:44)
--- NOTE | 2017-03-24 12:42 | CONS ---
CONSULTATION REPORT: DATE OF CONSULT: 03/24/17 REQUESTING PHYSICIAN: Dr. Brandon. CONSULTING SERVICE: Infectious Disease. REASON FOR CONSULTATION: Staph bacteremia, spine infection. IMPRESSION: 1. Septicemia due to coagulase negative staph, staphylococcus epidermidis / blood culture bottles. MRI done at [facility] shows abnormal marrow signal in the lumbar vertebral bodies and an epidural collection. 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 She has infective endocarditis. She has no other focus of pain to suggest another foci. 2. Diabetes. RECOMMENDATIONS: Agree with vancomycin, goal trough 15 to 20 and repeat the blood cultures and echocardiogram is pending, its findings are not relevant for the need for spinal surgery. HISTORY OF PRESENT ILLNESS: This is an 81-year-old woman with a bioprosthetic aortic valve admitted with back pain since November and abnormal MRI. She had her valve replacement last June, which was complicated by failure to heal the distal pole of her sternal wound. She finally had removal of her sternal wire and wound packing, they are unclear if they had any outpatient antibiotic therapy, her culture was done at [facility]. The wound itself never healed over until the end of November. About that time she developed low back pain that has been progressive and severe since then, it radiates into her right leg. She does not have weakness, just hurts to walk because of the back and leg pain. She had an MRI ordered as an outpatient by Dr. Esquivel with findings as noted above. She was directed to the hospital and the results came back. Dr. Brandon administered her on vancomycin and cefepime. Blood cultures were taken , 10/01 now growing staph epidermidis. She has been seen by Dr. Daniels, plan is for decompression. She has had no fever since arriving here, but has had chills at home as well as anorexia and weight loss for the last 3 months. She does not have any sternal wound any longer. She does not have painful joints. She has no prosthetic material present other than a heart valve and a right breast prosthesis. Her back and leg pain is unchanged. She has had no fever, chills or sweats today. PAST MEDICAL HISTORY: 1. Hyperlipidemia. 2. Status post aortic valve replacement in June 2016 at [facility] [place]. 3. Hypertension. 4. Diabetes. 5. Breast cancer. 6. 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 MEDICATIONS: 1. Tylenol. 2. Lipitor. 3. Calcium. 4. Docusate. 5. Donepezil. 6. Famotidine. 7. Cefepime 2 g daily. 8. Vancomycin 750 mg every 8hours. 9. Fentanyl patch. 10. Prednisone. ALLERGIES: No known drug allergies. FAMILY HISTORY: No recurrent infections. Parents are . SOCIAL HISTORY: She lives in [place] with her . She has no travel or sick contacts. REVIEW OF SYSTEMS: A 14-point review of systems is all negative except as noted above in history of present illness. PHYSICAL EXAMINATION: Vital Signs: Temperature 36.6, heart rate 68, respiratory rate 16, blood pressure 130/48, O2 sat 100% on room air. In general , she is awake, not in distress. Neurologic: She is oriented x2. Follows all commands. Moves all of her extremities. Strength is 5/5 in quadriceps, tibialis anterior and gastrocnemius bilaterally. Sensation is intact to light touch in the bilateral lower extremities. There is no lower extremity clonus bilaterally. HEENT: There is a left conjunctival hemorrhage. Oropharynx, no lesions. Neck is supple without nuchal or rigidity. Lymph Nodes: There is no cervical, supraclavicular, inguinal, axillary or epitrochlear lymphadenopathy. Heart has regular rate and rhythm with a 2/6 systolic murmur. Lungs: Clear to auscultation bilaterally. Chest: Sternal incision is healed. There is no click or wound. Abdomen: Soft, nontender, nondistended. There are bowel sounds present. Skin: There is no rash or splinter hemorrhages. Musculoskeletal: There is lumbar spine tenderness to palpation. There is no joint synovitis. LABORATORY DATA: White blood cell count 10, hemoglobin 9, platelets 255,000. Creatinine is 0.7, CRP 82, vancomycin trough 18. Please see impressions and recommendations outlined above, which I have discussed with LOW Reyez. Thank you for asking me to see Ms. Barclay in consultation. [id number]/[facility] #: [id number] MTDD
[2017-03-24] MEDS: fentaNYL Patch Check Q Shift 1 NOTE SCH ×2 (13:36→21:50)
[2017-03-24] MEDS ORDERED: Lidocaine 1% MPF wEPI 200,000* 30 ML SDV ONE (15:23)
[2017-03-24] MEDS ORDERED: Bacitracin IV* 50,000 UNITS INJ ONE (15:23)
[2017-03-24] MEDS ORDERED: Thrombin 5,000 UNITS* 1 APPLIC KIT - topical use - TOPICAL ONE (15:24)
[2017-03-24] MEDS ORDERED: Propofol* 10 MG/ML 20 ML BTL IV PUSH ONE (15:41)
[2017-03-24] MEDS ORDERED: fentaNYL* 50 MCG/ML 2 ML VIAL (100 MCG VIAL) ONE ×3 (15:42→19:26)
[2017-03-24] MEDS ORDERED: Atracurium* 10 MG/ML 10 ML VIAL ONE (15:43)
--- NOTE | 2017-03-24 17:20 | PN ---
Subjective Date of Service: 03/24/17 Interval History: Patient had pain overnight which was adequately controlled with current pain medication. Patient has pain with movement, but does not complain of significant pain at rest. Patient is moderately forgetful, but it A+Ox3. Patient denies CP/SOB, N/V, Abdominal pain, constipation, diarrhea, changes in urine, or any other new pain. Patient was on 2L NC overnight which was successfully D/C'd by author without hypoxia at beginning of shift. Family History: Unchanged from Admission Social History: Unchanged from Admission Past Medical History: Unchanged from Admission Objective Active Medications: Acetaminophen (Tylenol Tab*) 650 mg PO Q4H PRN PRN Reason: FEVER/PAIN Last Admin: 03/23/17 18:00 Dose: 650 mg Atorvastatin Calcium (Lipitor*) 40 mg PO DAILY [facility] Last Admin: 03/24/17 11:44 Dose: 40 mg Calcium/Vitamin D (Oscal D Tab 250/125*) 2 tab PO DAILY [facility] Last Admin: 03/24/17 11:43 Dose: 2 tab Dextrose (D50w Syringe 50 Ml*) 12.5 gm IV PUSH .FOR FS < 60 - SS PRN PRN Reason: FS < 60 Diphenhydramine HCl (Benadryl Iv*) 25 mg IV Q6H PRN PRN Reason: PRURITIS Last Admin: 03/21/17 17:45 Dose: 25 mg Docusate Sodium (Colace Cap*) 100 mg PO BID [facility] Last Admin: 03/24/17 11:44 Dose: 100 mg Donepezil HCl (Aricept Tab*) 5 mg PO DAILY [facility] Last Admin: 03/24/17 11:44 Dose: 5 mg Famotidine (Pepcid Tab*) 20 mg PO DAILY [facility] Last Admin: 03/24/17 11:43 Dose: 20 mg Fentanyl (Duragesic Patch 25 Mcg/Hr*) 25 mcg TRANSDERM Q72H [facility] Last Admin: 03/23/17 18:44 Dose: 25 mcg Furosemide (Lasix Tab*) 20 mg PO DAILY [facility] Last Admin: 03/24/17 11:43 Dose: 20 mg Hydromorphone HCl (Dilaudid Inj*) 1 mg IV SLOW PU Q4H PRN PRN Reason: PAIN Last Admin: 03/24/17 11:41 Dose: 1 mg Sodium Chloride (Ns 0.9% 1000 Ml*) 1,000 mls @ 75 mls/hr IV PER RATE [facility] Last Admin: 03/24/17 05:25 Dose: 75 mls/hr Vancomycin HCl 750 mg/ Sodium (Chloride) 250 mls @ 166.667 mls/hr IVPB Q8H [facility] Last Admin: 03/24/17 16:49 Dose: Not Given Insulin Human Lispro (Humalog*) 0 units SUBCUT ACHS ROLANDO PRN Reason: Protocol Last Admin: 03/24/17 16:49 Dose: Not Given Magnesium Oxide (Magox 400 Tab*) 400 mg PO DAILY [facility] Last Admin: 03/24/17 11:44 Dose: 400 mg Multivitamins/Minerals (Theragran/Minerals Tab*) 1 tab PO DAILY [facility] Last Admin: 03/24/17 11:43 Dose: 1 tab Oxycodone/Acetaminophen (Percocet 5/325 Tab*) 1 tab PO Q8H PRN PRN Reason: PAIN Last Admin: 03/23/17 20:00 Dose: 1 tab Pharmacy Consult (Vancomycin Per Pharmacy*) 1 note FOLLOW UP . PRN PRN Reason: PER PROTOCOL Pharmacy Profile Note (Fentanyl Patch Check Q Shift) 1 note N/A 0700,[id number] [facility] Last Admin: 03/24/17 13:36 Dose: 1 note Pharmacy Profile Note (Vancomycin Trough Check) 1 note FOLLOW UP 09 ONE Stop: 03/25/17 09:01 Prednisone (Deltasone Tab*) 10 mg PO DAILY [facility] Last Admin: 03/24/17 11:44 Dose: 10 mg Vital Signs 03/23/17 03/23/17 03/23/17 17:31 18:44 20:00 Temperature Pulse Rate Respiratory 16 16 18 Rate Blood Pressure (mmHg) O2 Sat by Pulse Oximetry 03/23/17 03/23/17 03/23/17 21:12 22:00 22:12 Temperature Pulse Rate Respiratory 16 16 16 Rate Blood Pressure (mmHg) O2 Sat by Pulse Oximetry 03/23/17 03/24/17 03/24/17 23:53 02:49 05:25 Temperature 97.7 F 98.0 F Pulse Rate 70 70 Respiratory 16 16 18 Rate Blood Pressure 128/49 169/62 (mmHg) O2 Sat by Pulse 100 100 Oximetry 03/24/17 03/24/17 03/24/17 07:53 08:00 11:41 Temperature 97.9 F Pulse Rate 68 Respiratory 16 16 22 Rate Blood Pressure 130/48 (mmHg) O2 Sat by Pulse 100 Oximetry 03/24/17 03/24/17 11:58 12:41 Temperature Pulse Rate 75 Respiratory 17 16 Rate Blood Pressure 138/51 (mmHg) O2 Sat by Pulse 95 Oximetry Oxygen Devices in Use Now: None Appearance: Patient is an 81yo female sitting comfortably in hospital bed in [facility]. Eyes: No Scleral Icterus, PERRLA, - - Patient has several subconjunctival hemorrhages in left eye. Ears/Nose/Mouth/Throat: NL Teeth, Lips, Gums, Clear Oropharnyx, Mucous Membranes Moist Neck: NL Appearance and Movements; NL JVP Respiratory: Symmetrical Chest Expansion and Respiratory Effort, Clear to Auscultation Cardiovascular: NL Sounds; No Murmurs; No JVD, RRR, No Edema, - - Pulses 2+ in B /L radial, PT/DP areas. Abdominal: NL Sounds; No Tenderness; No Distention, No Hepatosplenomegaly Lymphatic: No Cervical Adenopathy Extremities: No Edema Skin: No Rash or Ulcers Neurological: Alert and Oriented x 3, NL Muscle Strength and Tone, - - Decreased sensation on dorsum of R foot and lateral aspect of R calf. Patellar and achilles reflexes 2+ B/L. Strength Result Diagrams: 03/22/17 09:15 03/22/17 09:15 Additional Lab and Data: . 03/22/17 03/22/17 03/22/17 09:15 09:15 16:20 WBC 10.7 RBC 3.63 L Hgb 9.7 L Hct 30 L MCV 82 MCH 27 MCHC 33 RDW 18 H Plt Count 255 MPV 8 Neut % (Auto) 76.6 Lymph % (Auto) 17.8 L [place] % (Auto) 4.0 Eos % (Auto) 0.3 Baso % (Auto) 1.3 Absolute Neuts (auto) 8.2 H Absolute Lymphs (auto) 1.9 Absolute Monos (auto) 0.4 Absolute Eos (auto) 0 Absolute Basos (auto) 0.1 Absolute Nucleated RBC 0 Nucleated RBC % 0 ESR Cancelled Sodium 135 Potassium 4.0 Chloride 101 Carbon Dioxide 25 Anion Gap 9 BUN 16 Creatinine 0.74 Est GFR ( Amer) 96.6 Est GFR (Non-Af Amer) 75.1 BUN/Creatinine Ratio 21.6 H Glucose 72 POC Glucose (mg/dL) Hemoglobin A1c Calcium 8.3 L Total Bilirubin 0.60 AST 12 L ALT 9 Alkaline Phosphatase 66 C-Reactive Protein 82.02 H Total Protein 5.8 L Albumin 2.9 L Globulin 2.9 Albumin/Globulin Ratio 1.0 Vancomycin Trough 18.2 03/23/17 03/23/17 03/24/17 16:38 19:46 06:18 WBC RBC Hgb Hct MCV MCH MCHC RDW Plt Count MPV Neut % (Auto) Lymph % (Auto) [place] % (Auto) Eos % (Auto) Baso % (Auto) Absolute Neuts (auto) Absolute Lymphs (auto) Absolute Monos (auto) Absolute Eos (auto) Absolute Basos (auto) Absolute Nucleated RBC Nucleated RBC % ESR Sodium Potassium Chloride Carbon Dioxide Anion Gap BUN Creatinine Est GFR ( Amer) Est GFR (Non-Af Amer) BUN/Creatinine Ratio Glucose POC Glucose (mg/dL) 316 H 341 H Hemoglobin A1c 6.9 H Calcium Total Bilirubin AST ALT Alkaline Phosphatase C-Reactive Protein Total Protein Albumin Globulin Albumin/Globulin Ratio Vancomycin Trough 03/24/17 03/24/17 03/24/17 07:54 12:00 14:10 WBC RBC Hgb Hct MCV MCH MCHC RDW Plt Count MPV Neut % (Auto) Lymph % (Auto) [place] % (Auto) Eos % (Auto) Baso % (Auto) Absolute Neuts (auto) Absolute Lymphs (auto) Absolute Monos (auto) Absolute Eos (auto) Absolute Basos (auto) Absolute Nucleated RBC Nucleated RBC % ESR Sodium Potassium Chloride Carbon Dioxide Anion Gap BUN Creatinine Est GFR ( Amer) Est GFR (Non-Af Amer) BUN/Creatinine Ratio Glucose POC Glucose (mg/dL) 127 H 91 139 H Hemoglobin A1c Calcium Total Bilirubin AST ALT Alkaline Phosphatase C-Reactive Protein Total Protein Albumin Globulin Albumin/Globulin Ratio Vancomycin Trough Microbiology and Other Data: Microbiology 03/21/17 17:07 Aerobic Blood Culture - Preliminary Blood Venous Staphylococcus Epidermidis Anaerobic Blood Culture - Final Staphylococcus Epidermidis Blood Culture - Final Blood MRSA/MSSA (PCR) - Final Mrsa Negative S.aureus Negative 03/21/17 23:28 Aerobic Blood Culture - Final Blood Venous Staphylococcus Epidermidis Anaerobic Blood Culture - Final Staphylococcus Epidermidis Blood Culture - Final Assess/Plan/Problems-Billing . Assessment: 81 yo female with osteomyelitis vs epidural abscess and BCX growing staph epi. Patient is currently undergoing neurosurgery for epidural abscess. On antibiotics to cover osteomyelitis and possible endocarditis. - Patient Problems (1) Endocarditis of aortic valve Current Visit: Yes Status: Suspected Code(s): I35.8 - OTHER NONRHEUMATIC AORTIC VALVE DISORDERS SNOMED Code(s): 44074150 Comment: Patient has subconjunctival hemorrhages consistent with endocarditis. Patient had aortic valve replacement this year. TTE unable to rule out vegetations. Will order ZACH tomorrow to get a better view of aortic valve and rule out subvalvular abscess. Case discussed with ID and the consult is appreciated. On ABX that would cover endocarditis. (2) Diabetes type 2, controlled Current Visit: Yes Status: Acute Priority: High Code(s): E11.9 - TYPE 2 DIABETES MELLITUS WITHOUT COMPLICATIONS SNOMED Code(s): 77868360 Comment: Continue on SSI, hold metformin while in hospital. BS well controlled Patient currently NPO and will have to be NPO after midnight again tomorrow. Taper off prednisone after surgery. (3) Epidural abscess Current Visit: Yes Status: Acute Priority: High Code(s): G06.2 - EXTRADURAL AND SUBDURAL ABSCESS, UNSPECIFIED SNOMED Code(s): 47011338 Comment: Continue IV Vancomycin with target of 15-20 per ID. (4) Hyperlipidemia Current Visit: Yes Status: Acute Code(s): E78.5 - HYPERLIPIDEMIA, UNSPECIFIED SNOMED Code(s): 80901667 Comment: Continue statin therapy (5) Intractable low back pain Current Visit: Yes Status: Acute Priority: High Code(s): M54.5 - LOW BACK PAIN SNOMED Code(s): 31036735737791328 Comment: Continue current pain regimen, will reassess in the morning for increases or decreases in pain postoperatively. Status and Disposition: Patient is admitted inpatient and will be discharged when medically ready and depending on functional capacity after surgery. Attending: Ivonne Ludwig
--- NOTE | 2017-03-24 17:51 | RAD ---
INDICATION: Lumbar spine decompression surgery. COMPARISON: Comparison is made with the outside MRI of the lumbar spine from March 10, 2017. TECHNIQUE: 2 portable cross table lateral films of the lumbar spine were obtained in the operating room. FINDINGS: There are multiple surgical instruments which project posteriorly at the L4-L5 level. IMPRESSION: INTRAOPERATIVE CONTROL FILMS.
[2017-03-24] MEDS ORDERED: Ondansetron INJ* 2 MG/ML VIAL ONE (17:59)
[2017-03-24] MEDS ORDERED: Neostigmine Methylsulfate* 2 MG/2 ML SYRINGE ONE (18:06)
[2017-03-24] MEDS ORDERED: Glycopyrrolate IV* 0.2 MG/ML 1 ML VIAL ONE (18:06)
[2017-03-24] MEDS ORDERED: Ondansetron INJ* 2 MG/ML VIAL IV PRN (18:20)
[2017-03-24] MEDS: fentaNYL* 50 MCG/ML 2 ML VIAL (100 MCG VIAL) IV PRN ×5 (18:20→18:54)
[2017-03-24] MEDS ORDERED: oxyCODONE/Acetamin 5/325 MG* TAB ONE (19:26)
[2017-03-24] MEDS: oxyCODONE/Acetamin 5/325 MG* TAB PO PRN (19:27)
[2017-03-24] MEDS: Baclofen TAB* 10 MG PO PRN (23:26)
[2017-03-25] MEDS: Vancomycin(*) 750 MG in NS 0.9% 250 ML* 250 ML IVPB SCH ×3 (01:16→15:16)
[2017-03-25] MEDS: HYDROmorphone INJ* 1 MG/ML CARPUJECT SYRINGE IV SLOW PU PRN ×3 (02:39→19:55)
[2017-03-25] MEDS: oxyCODONE/Acetamin 5/325 MG* TAB PO PRN ×2 (05:25→16:28)
[2017-03-25] MEDS: fentaNYL Patch Check Q Shift 1 NOTE SCH ×2 (07:00→18:52)
[2017-03-25] MEDS: Insulin LISPRO* 1 UNITS UNIT SUBCUT SCH ×4 (08:12→21:22)
[2017-03-25 08:13] LABS: Hematocrit 30 % (35-47); Hemoglobin 9.7 g/dl (12.0-16.0); Mean Corpuscular HGB Conc 33 g/dl (31-36); Mean Corpuscular Hemoglobin 27 pg (27-31); Mean Corpuscular Volume 81 fL (80-97); Mean Platelet Volume 7 um3 (7.4-10.4); Red Blood Count 3.66 10^6/ul (4.0-5.4); Red Cell Distribution Width 18 % (10.5-15); White Blood Count 13.3 10^3/ul (3.5-10.8)
[2017-03-25] MEDS ORDERED: Vancomycin Trough Check NOTE FOLLOW UP ONE (09:00)
[2017-03-25 09:23] LABS: C Reactive Protein 26.67 mg/L (< 5.00)
[2017-03-25] MEDS ORDERED: Midazolam* 1 MG/ML 5 ML VIAL (5 MG) ONE (10:01)
[2017-03-25] MEDS ORDERED: fentaNYL* 50 MCG/ML 2 ML VIAL (100 MCG VIAL) ONE (10:01)
[2017-03-25] MEDS ORDERED: Naloxone* 0.4 MG/ML 1 ML VIAL ONE (10:01)
[2017-03-25] MEDS ORDERED: Flumazenil* 0.1 MG/ML 5 ML MDV ONE (10:01)
[2017-03-25] MEDS ORDERED: Lidocaine 2% VISCOUS* 15 ML UDC ONE (10:02)
--- NOTE | 2017-03-25 10:02 | RAD ---
HISTORY: Postop lumbar laminectomy COMPARISONS: March 24, 2017, MRI dated March 10, 2017 VIEWS: 3 , Frontal, lateral, and coned-down lateral sacral views of the lumbar spine FINDINGS: ALIGNMENT: There is straightening of the normal lumbar lordosis. VERTEBRAL BODIES: There is anterolateral marginal osteophyte formation most pronounced along the lower lumbar spine. A laminectomy defect is noted along the lower lumbar spine JOINTS: There is facet hypertrophic change most pronounced along the lower lumbar spine INTERVERTEBRAL DISCS: There is diffuse loss of intervertebral disc height. SOFT TISSUE: A surgical drain is noted in the soft tissues OTHER: A prosthetic heart valve is noted. The lung bases are clear. IMPRESSION: POSTSURGICAL CHANGE. DEGENERATIVE DISC DISEASE AND OSTEOARTHRITIS
[2017-03-25 10:26] LABS: Vancomycin Trough 24.3 mcg/mL
[2017-03-25 10:54] LABS: BUN/Creatinine Ratio 12.7 (8-20); Calcium 8.7 mg/dL (8.6-10.3); EGFR African American 101.4 (>60); EGFR Non-African American 78.8 (>60); Potassium 3.8 mmol/L (3.5-5.0)
--- NOTE | 2017-03-25 11:18 | TEE ---
Patient: SHANTAL THORNE [facility] Rec#: [id number] : 1935 Date: 03/25/2017 Age: 81y Height: 160 cm / 63.0 in Weight: 49 kg / 108.0 lbs Sex: F BSA: 1.49 Room#: 343 Admit Date#: 03/21/2017 Type: Inpatient Referring: Raul Faulkner MD Performing: Abiel Zacarias MD Reading: Abiel Zacarias MD [employer] As[employer]er: Oly Jacques,RDCS,RDMS Nurse: Raghu Paulson RN CC: Shon Mcclure MD Transesophageal Echocardiogram Indication: Bacteremia BP: 150/55 HR: 77 Rhythm: NSR Findings History: AVR (bioprosthetic), HTN, HLD, DM, spinal infection, breast cancer Technical Comments: The study quality is good. Left Ventricle: The left ventricular chamber size is normal. Mild concentric left ventricular hypertrophy is observed. Global left ventricular wall motion and contractility are within normal limits. There is normal left ventricular systolic function. The estimated ejection fraction is 60-65%. The assessment of diastolic function is non-diagnostic. Left Atrium: The left atrial chamber size is normal. There is no thrombus visualized in the left atrial appendage. Right Ventricle: The right ventricular chamber size and systolic function are within normal limits. Right Atrium: The right atrial cavity size is normal. The interatrial septum appears lipomatous. There is evidence of an atrial septal aneurysm. Aortic Valve: There is no evidence of aortic regurgitation. A bio-prosthetic aortic valve is present. The bio-prosthetic aortic valve appears to be functioning normally. There is no aortic vegetation present. Mitral Valve: Mild mitral annular calcification present. The mitral valve leaflets are mildly thickened. There is mild mitral regurgitation. There is no evidence of mitral stenosis. No vegetation is observed on the mitral valve. Tricuspid Valve: The tricuspid valve leaflets are normal. There is trace tricuspid regurgitation. No vegetation is observed on the tricuspid valve. Pulmonic Valve: The pulmonic valve appears normal. There is a trace pulmonic regurgitation. No vegetation is observed on the pulmonic valve. Pericardium: There is no significant pericardial effusion. Aorta: The aortic root appears normal. There is plaque visualized in the descending aorta. Pulmonary Artery: The main pulmonary artery appears normal. Venous: The inferior vena cava appears normal. The flow pattern of the pulmonary veins appear normal. The superior vena cava appears normal. ZACH Procedures: All standard views were attempted within the limitations of patient tolerance and safety. History and physical as well as labs were reviewed. The patient was in a fasting state. Risks and benefits of the procedure, including alternatives, were discussed and written informed consent was obtained. The patient and/or their health care guest services representative expressed understanding of the procedure, risks and benefits. Baseline and continuous monitoring of blood pressure, heart rate, pulse oximetry and heart rhythm was performed throughout the procedure. The appropriate time-out procedure was performed as per [facility] protocol. The patient was placed in the left lateral decubitus position. The patient's posterior pharynx was anesthetized with 20ml of 2% viscous lidocaine. The patient received IV Midazolam with a total dose of 2 mg The patient received IV Fentanyl with a total dose of 50 mcg The multiplane transesophageal echocardiogram probe was inserted through the posterior oropharynx and advanced into the esophagus without difficulty. Multiple 2D images were obtained of the heart and its related structures. Color flow Doppler was used for evaluation. Spectral Doppler was also used. The atrial septum was interrogated with color flow Doppler. At the conclusion of the procedure the probe was removed with continuous suction without complications. The patient tolerated the procedure with no apparent complications. Conclusions Global left ventricular wall motion and contractility are within normal limits. There is normal left ventricular systolic function. The estimated ejection fraction is 60-65%. There is evidence of an atrial septal aneurysm. A bio-prosthetic aortic valve is present. The bio-prosthetic aortic valve appears to be functioning normally. There is no aortic vegetation present. There is mild mitral regurgitation. No vegetation is observed on the mitral valve. There is trace tricuspid regurgitation. No vegetation is observed on the tricuspid valve. There is a trace pulmonic regurgitation. No vegetation is observed on the pulmonic valve. There is no significant pericardial effusion. Measurements Name Value Normal Range Aortic Annulus 1.7 cm (1.4 - 2.6) Ao root diameter (2D) 2.7 cm (2.1 - 3.5) Ascending Ao 3.1 cm (2.1 - 3.4) Name Value Normal Range MV E-wave Vmax 0.9 m/sec - MV deceleration time 233 msec - MV A-wave Vmax 0.8 m/sec - MV E:A ratio 1.1 ratio - P. vein S-wave Vmax 0.5 m/sec - P. vein D-wave Vmax 0.4 m/sec - P. vein S:D Vmax ratio 1.3 ratio - P. vein A-wave duration 89 msec - Name Value Normal Range AV Vmax 2.4 m/sec - AV peak gradient 23 mmHg -
[2017-03-25] MEDS: Docusate CAP* 100 MG PO SCH ×2 (12:02→21:26)
[2017-03-25] MEDS: Calcium/Vitamin D TAB 250/125* TAB PO SCH (12:02)
[2017-03-25] MEDS: Famotidine TAB* 20 MG PO SCH (12:02)
[2017-03-25] MEDS: Atorvastatin* 40 MG TAB PO SCH (12:02)
[2017-03-25] MEDS: Donepezil TAB* 5 MG PO SCH (12:02)
[2017-03-25] MEDS: Furosemide TAB* 20 MG PO SCH (12:03)
[2017-03-25] MEDS: Gabapentin CAP(*) 100 MG PO SCH ×2 (12:03→21:25)
[2017-03-25] MEDS: Magnesium Oxide TAB* 400 MG PO SCH (12:04)
[2017-03-25] MEDS: Multivitamins/Minerals TAB PO SCH (12:04)
[2017-03-25] MEDS: predniSONE TAB* 10 MG PO SCH (12:04)
--- NOTE | 2017-03-25 12:34 | PN ---
Subjective Date of Service: 03/25/17 Interval History: Patient underwent surgery yesterday for a laminectomy. Patient states that the pain in her leg has not decreased that she has significant pain from the incision in her back. Patient states that the numbness in her foot has resolved. Patient is hungry and thirsty from being NPO for over a day. Patient denies F/C/N/V, CP, SOB, Abdominal pain, Changes in urine, or any other new complaints. Family History: Unchanged from Admission Social History: Unchanged from Admission Past Medical History: Unchanged from Admission Objective Active Medications: Acetaminophen (Tylenol Tab*) 650 mg PO Q4H PRN PRN Reason: FEVER/PAIN Last Admin: 03/23/17 18:00 Dose: 650 mg Atorvastatin Calcium (Lipitor*) 40 mg PO DAILY [facility] Last Admin: 03/25/17 12:02 Dose: Not Given Baclofen (Lioresal Tab*) 10 mg PO TID PRN PRN Reason: SPASMS Last Admin: 03/24/17 23:26 Dose: 10 mg Calcium/Vitamin D (Oscal D Tab 250/125*) 2 tab PO DAILY [facility] Last Admin: 03/25/17 12:02 Dose: Not Given Dextrose (D50w Syringe 50 Ml*) 12.5 gm IV PUSH .FOR FS < 60 - SS PRN PRN Reason: FS < 60 Diphenhydramine HCl (Benadryl Iv*) 25 mg IV Q6H PRN PRN Reason: PRURITIS Last Admin: 03/21/17 17:45 Dose: 25 mg Docusate Sodium (Colace Cap*) 100 mg PO BID [facility] Last Admin: 03/25/17 12:02 Dose: Not Given Donepezil HCl (Aricept Tab*) 5 mg PO DAILY [facility] Last Admin: 03/25/17 12:02 Dose: Not Given Famotidine (Pepcid Tab*) 20 mg PO DAILY [facility] Last Admin: 03/25/17 12:02 Dose: Not Given Fentanyl (Duragesic Patch 25 Mcg/Hr*) 25 mcg TRANSDERM Q72H [facility] Last Admin: 03/23/17 18:44 Dose: 25 mcg Furosemide (Lasix Tab*) 20 mg PO DAILY [facility] Last Admin: 03/25/17 12:03 Dose: Not Given Gabapentin (Neurontin Cap(*)) 100 mg PO BID [facility] Last Admin: 03/25/17 12:03 Dose: Not Given Hydromorphone HCl (Dilaudid Inj*) 1 mg IV SLOW PU Q3H PRN PRN Reason: PAIN Sodium Chloride (Ns 0.9% 1000 Ml*) 1,000 mls @ 75 mls/hr IV PER RATE [facility] Last Admin: 03/24/17 05:25 Dose: 75 mls/hr Lactated Ringer's (Lactated Ringers 1000 Ml Bag*) 1,000 mls @ 75 mls/hr IV .per rate [facility] Last Admin: 03/24/17 20:30 Dose: 75 mls/hr Vancomycin HCl 750 mg/ Sodium (Chloride) 250 mls @ 166.667 mls/hr IVPB Q12H [facility] Insulin Human Lispro (Humalog*) 0 units SUBCUT ACHS ROLANDO PRN Reason: Protocol Last Admin: 03/25/17 12:05 Dose: Not Given Magnesium Oxide (Magox 400 Tab*) 400 mg PO DAILY [facility] Last Admin: 03/25/17 12:04 Dose: Not Given Multivitamins/Minerals (Theragran/Minerals Tab*) 1 tab PO DAILY [facility] Last Admin: 03/25/17 12:04 Dose: Not Given Oxycodone/Acetaminophen (Percocet 5/325 Tab*) 1 tab PO Q8H PRN PRN Reason: PAIN Last Admin: 03/25/17 05:25 Dose: 1 tab Pharmacy Consult (Vancomycin Per Pharmacy*) 1 note FOLLOW UP . PRN PRN Reason: PER PROTOCOL Pharmacy Profile Note (Fentanyl Patch Check Q Shift) 1 note N/A 0700,1900 [facility] Last Admin: 03/25/17 07:00 Dose: 1 note Pharmacy Profile Note (Vancomycin Trough Check) 1 note FOLLOW UP 1430 ONE Stop: 03/27/17 14:31 Prednisone (Deltasone Tab*) 10 mg PO DAILY [facility] Last Admin: 03/25/17 12:04 Dose: Not Given Vital Signs 03/24/17 03/24/17 03/24/17 12:41 18:15 18:20 Temperature 97.7 F Pulse Rate 102 110 Respiratory 16 16 20 Rate Blood Pressure 161/72 149/74 (mmHg) O2 Sat by Pulse 99 96 Oximetry 03/24/17 03/24/17 03/24/17 18:25 18:28 18:30 Temperature Pulse Rate 111 110 Respiratory 19 16 19 Rate Blood Pressure 155/57 149/61 (mmHg) O2 Sat by Pulse 97 98 Oximetry 03/24/17 03/24/17 03/24/17 18:32 18:35 18:45 Temperature Pulse Rate 101 98 Respiratory 16 19 17 Rate Blood Pressure 145/67 145/67 (mmHg) O2 Sat by Pulse 96 96 Oximetry 03/24/17 03/24/17 03/24/17 18:54 19:00 19:15 Temperature Pulse Rate 95 88 Respiratory 16 18 18 Rate Blood Pressure 145/75 146/53 (mmHg) O2 Sat by Pulse 97 95 Oximetry 03/24/17 03/24/17 03/24/17 19:27 19:30 19:45 Temperature Pulse Rate 88 92 Respiratory 18 16 16 Rate Blood Pressure 130/73 152/65 (mmHg) O2 Sat by Pulse 95 97 Oximetry 03/24/17 03/24/17 03/24/17 19:59 20:20 20:24 Temperature 99.0 F 99.0 F 99.0 F Pulse Rate 86 83 83 Respiratory 16 16 16 Rate Blood Pressure 136/60 121/41 121/41 (mmHg) O2 Sat by Pulse 95 97 97 Oximetry 03/24/17 03/24/17 03/24/17 21:22 21:27 22:27 Temperature 97.6 F 98.1 F Pulse Rate 73 65 Respiratory 14 16 14 Rate Blood Pressure 132/48 124/39 (mmHg) O2 Sat by Pulse 98 97 Oximetry 03/24/17 03/25/17 03/25/17 22:36 00:31 02:30 Temperature 98.4 F 97.9 F Pulse Rate 66 97 Respiratory 17 14 16 Rate Blood Pressure 128/41 163/110 (mmHg) O2 Sat by Pulse 98 100 Oximetry 03/25/17 03/25/17 03/25/17 02:39 03:39 04:24 Temperature 98.4 F Pulse Rate 78 Respiratory 17 16 16 Rate Blood Pressure 131/73 (mmHg) O2 Sat by Pulse 97 Oximetry 03/25/17 03/25/17 03/25/17 05:25 07:25 07:41 Temperature 99.3 F Pulse Rate 84 Respiratory 16 20 16 Rate Blood Pressure 123/83 (mmHg) O2 Sat by Pulse 97 Oximetry 03/25/17 03/25/17 03/25/17 08:00 08:18 11:15 Temperature 99.2 F Pulse Rate 73 Respiratory 20 20 20 Rate Blood Pressure 133/47 (mmHg) O2 Sat by Pulse 97 96 Oximetry Oxygen Devices in Use Now: None Appearance: Patient is an 81yo female who is sitting comfortably in the chair in NAD. Eyes: PERRLA, - - Stable subconjunctival hemorrhages. Ears/Nose/Mouth/Throat: NL Teeth, Lips, Gums, Clear Oropharnyx, Mucous Membranes Moist Neck: NL Appearance and Movements; NL JVP Respiratory: Symmetrical Chest Expansion and Respiratory Effort, Clear to Auscultation Cardiovascular: RRR, No Edema, - - Pulses 2+ in radial, PT, DP. Grade 1/6 systolic murmur heard best at the left sternal border at the 2nd intercostal space. Abdominal: NL Sounds; No Tenderness; No Distention, No Hepatosplenomegaly Lymphatic: No Cervical Adenopathy Extremities: No Edema Skin: No Rash or Ulcers Neurological: Alert and Oriented x 3, NL Sensation, NL Muscle Strength and Tone Result Diagrams: 03/25/17 08:03 03/25/17 08:48 Additional Lab and Data: . 03/22/17 03/22/17 03/22/17 09:15 09:15 16:20 WBC 10.7 RBC 3.63 L Hgb 9.7 L Hct 30 L MCV 82 MCH 27 MCHC 33 RDW 18 H Plt Count 255 MPV 8 Neut % (Auto) 76.6 Lymph % (Auto) 17.8 L Cam[place] % (Auto) 4.0 Eos % (Auto) 0.3 Baso % (Auto) 1.3 Absolute Neuts (auto) 8.2 H Absolute Lymphs (auto) 1.9 Absolute Monos (auto) 0.4 Absolute Eos (auto) 0 Absolute Basos (auto) 0.1 Absolute Nucleated RBC 0 Nucleated RBC % 0 ESR Cancelled Sodium 135 Potassium 4.0 Chloride 101 Carbon Dioxide 25 Anion Gap 9 BUN 16 Creatinine 0.74 Est GFR ( Amer) 96.6 Est GFR (Non-Af Amer) 75.1 BUN/Creatinine Ratio 21.6 H Glucose 72 POC Glucose (mg/dL) Hemoglobin A1c Calcium 8.3 L Total Bilirubin 0.60 AST 12 L ALT 9 Alkaline Phosphatase 66 C-Reactive Protein 82.02 H Total Protein 5.8 L Albumin 2.9 L Globulin 2.9 Albumin/Globulin Ratio 1.0 Vancomycin Trough 18.2 03/23/17 03/23/17 03/24/17 16:38 19:46 06:18 WBC RBC Hgb Hct MCV MCH MCHC RDW Plt Count MPV Neut % (Auto) Lymph % (Auto) Cam[place] % (Auto) Eos % (Auto) Baso % (Auto) Absolute Neuts (auto) Absolute Lymphs (auto) Absolute Monos (auto) Absolute Eos (auto) Absolute Basos (auto) Absolute Nucleated RBC Nucleated RBC % ESR Sodium Potassium Chloride Carbon Dioxide Anion Gap BUN Creatinine Est GFR ( Amer) Est GFR (Non-Af Amer) BUN/Creatinine Ratio Glucose POC Glucose (mg/dL) 316 H 341 H Hemoglobin A1c 6.9 H Calcium Total Bilirubin AST ALT Alkaline Phosphatase C-Reactive Protein Total Protein Albumin Globulin Albumin/Globulin Ratio Vancomycin Trough 03/24/17 03/24/17 03/24/17 07:54 12:00 14:10 WBC RBC Hgb Hct MCV MCH MCHC RDW Plt Count MPV Neut % (Auto) Lymph % (Auto) [place] % (Auto) Eos % (Auto) Baso % (Auto) Absolute Neuts (auto) Absolute Lymphs (auto) Absolute Monos (auto) Absolute Eos (auto) Absolute Basos (auto) Absolute Nucleated RBC Nucleated RBC % ESR Sodium Potassium Chloride Carbon Dioxide Anion Gap BUN Creatinine Est GFR ( Amer) Est GFR (Non-Af Amer) BUN/Creatinine Ratio Glucose POC Glucose (mg/dL) 127 H 91 139 H Hemoglobin A1c Calcium Total Bilirubin AST ALT Alkaline Phosphatase C-Reactive Protein Total Protein Albumin Globulin Albumin/Globulin Ratio Vancomycin Trough Microbiology and Other Data: Microbiology 03/21/17 17:07 Aerobic Blood Culture - Preliminary Blood Venous Staphylococcus Epidermidis Anaerobic Blood Culture - Final Staphylococcus Epidermidis Blood Culture - Final Blood MRSA/MSSA (PCR) - Final Mrsa Negative S.aureus Negative 03/21/17 23:28 Aerobic Blood Culture - Final Blood Venous Staphylococcus Epidermidis Anaerobic Blood Culture - Final Staphylococcus Epidermidis Blood Culture - Final Assess/Plan/Problems-Billing . Assessment: 81 yo female with osteomyelitis vs epidural abscess and BCX growing staph epi. Patient is underwent neurosurgery yesterday with unsatisfactory results and will be going back tomorrow for revision per her surgeon. - Patient Problems (1) Diabetes type 2, controlled Current Visit: Yes Status: Acute Priority: High Code(s): E11.9 - TYPE 2 DIABETES MELLITUS WITHOUT COMPLICATIONS SNOMED Code(s): 96435245 Comment: Continue on SSI, hold metformin while in hospital. BS well controlled Patient currently able to eat and will have to be NPO after midnight again tomorrow. Taper off prednisone after surgery. (2) Epidural abscess Current Visit: Yes Status: Acute Priority: High Code(s): G06.2 - EXTRADURAL AND SUBDURAL ABSCESS, UNSPECIFIED SNOMED Code(s): 14728291 Comment: Continue IV Vancomycin with target of 15-20 per ID. (3) Hyperlipidemia Current Visit: Yes Status: Acute Code(s): E78.5 - HYPERLIPIDEMIA, UNSPECIFIED SNOMED Code(s): 05999605 Comment: Continue statin therapy (4) Intractable low back pain Current Visit: Yes Status: Acute Priority: High Code(s): M54.5 - LOW BACK PAIN SNOMED Code(s): 26020791913968195 Comment: Pain stable if not worst postoperatively. Dilaudid increase to Q3H. Gabapentin 100mg BID added to be titrated upwards. Status and Disposition: Patient is admitted inpatient and will be discharged when medically ready and depending on functional capacity after surgery. Attending: Jeramie Leonard
--- NOTE | 2017-03-25 14:36 | PN ---
Progress Note - Progress Note Date of Service: 03/25/17 SOAP: Subjective: []POD # 1 Patient had bad night last night with pain C/O pain in both back and right leg Not sure it is any different to her than pre op Objective: []Drain, dressing intact Neuro intact Assessment: [] She has more pain than I would anticipate post op Plan: []Discussed severe pain with and daughter I feel that if pain persists we should re explore her back in am to do further decompression Will discuss with her when she is over her sedation for her ZACH
[2017-03-25] MEDS: Baclofen TAB* 10 MG PO PRN (16:28)
--- NOTE | 2017-03-25 17:25 | PN ---
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 Ongoing back pain. No rash or diarrhea. Objective: [] Vital Signs Temp 37.1 C 03/25/17 15:38 Pulse 84 03/25/17 15:38 Resp 22 03/25/17 16:28 BP 110/48 03/25/17 15:38 Pulse Ox 97 03/25/17 15:38 Intake & Output 03/24/17 03/25/17 03/25/17 18:59 06:59 18:59 Intake Total 3332 360 100 Output Total 290 1000 255 Balance 3042 -640 -155 Intake: IV Fluids 3332 all fluids 2031 lr 1300 Oral 0 360 100 Output: PARAM #1 40 100 55 Urine 200 900 200 Estimated Blood Loss 50 Other: Estimated Void Medium Large # Bowel Movements 0 # Voids 1 Gen:awake, uncomfortable HEENT: L conj hemorrorhage Neck:supple Heart:RRR no murmur Lungs:CTA BL Abd:+BS NTND soft Skin: no rash Laboratory Results - last 24 hr 03/24/17 03/24/17 03/25/17 20:13 21:46 08:03 WBC RBC Hgb Hct MCV MCH MCHC RDW Plt Count MPV Neut % (Auto) Lymph % (Auto) Clinch % (Auto) Eos % (Auto) Baso % (Auto) Absolute Neuts (auto) Absolute Lymphs (auto) Absolute Monos (auto) Absolute Eos (auto) Absolute Basos (auto) Absolute Nucleated RBC Nucleated RBC % Sodium Potassium Chloride Carbon Dioxide Anion Gap BUN Creatinine Est GFR ( Amer) Est GFR (Non-Af Amer) BUN/Creatinine Ratio Glucose POC Glucose (mg/dL) 161 H 149 H Calcium C-Reactive Protein 26.67 H Vancomycin Trough 24.3 03/25/17 03/25/17 03/25/17 08:03 08:07 08:48 WBC 13.3 H RBC 3.66 L Hgb 9.7 L Hct 30 L MCV 81 MCH 27 MCHC 33 RDW 18 H Plt Count 289 MPV 7 L Neut % (Auto) 78.3 Lymph % (Auto) 14.7 L Clinch % (Auto) 5.3 Eos % (Auto) 0.6 Baso % (Auto) 1.1 Absolute Neuts (auto) 10.4 H Absolute Lymphs (auto) 2.0 Absolute Monos (auto) 0.7 Absolute Eos (auto) 0.1 Absolute Basos (auto) 0.1 Absolute Nucleated RBC 0 Nucleated RBC % 0 Sodium 138 Potassium 3.8 Chloride 99 L Carbon Dioxide 27 Anion Gap 12 H BUN 9 Creatinine 0.71 Est GFR ( Amer) 101.4 Est GFR (Non-Af Amer) 78.8 BUN/Creatinine Ratio 12.7 Glucose 114 H POC Glucose (mg/dL) 119 H Calcium 8.7 C-Reactive Protein Vancomycin Trough 03/25/17 03/25/17 11:47 17:03 WBC RBC Hgb Hct MCV MCH MCHC RDW Plt Count MPV Neut % (Auto) Lymph % (Auto) Clinch % (Auto) Eos % (Auto) Baso % (Auto) Absolute Neuts (auto) Absolute Lymphs (auto) Absolute Monos (auto) Absolute Eos (auto) Absolute Basos (auto) Absolute Nucleated RBC Nucleated RBC % Sodium Potassium Chloride Carbon Dioxide Anion Gap BUN Creatinine Est GFR ( Amer) Est GFR (Non-Af Amer) BUN/Creatinine Ratio Glucose POC Glucose (mg/dL) 118 H 180 H Calcium C-Reactive Protein Vancomycin Trough Microbiology 03/24/17 17:42 Anaerobic Culture - Preliminary Wound - Other No Growth Day 1 03/24/17 17:42 Gram Stain - Final Misc Source (See Comment) - Other Wound Culture - Preliminary No Growth Day 1 03/21/17 23:28 Aerobic Blood Culture - Final Blood Venous Staphylococcus Epidermidis Anaerobic Blood Culture - Final Staphylococcus Epidermidis Blood Culture - Final ZACH: no vegetation, abscess, or paravalvular leak Assessment: 1. septicemia with Staph epi bacteremia due to epidural abscess, vertebral osteodiskitis 2. 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 dementia Plan: 1. continue vancomycin goal tr 15-20; recheck blood cultures (ordered) 2. add gentamicin 60 mg IV Q12hrs (2 weeks), once BC are cleared will add rifampin 600 mg daily. Daily BMP and regular gent trough goal 0. Discussed with Dr Daniels and LOW Faulkner
[2017-03-25] MEDS ORDERED: Gentamicin ADULT per pharmacy 1 NOTE MISC FOLLOW UP PRN (17:54)
[2017-03-26] MEDS: Vancomycin(*) 750 MG in NS 0.9% 250 ML* 250 ML IVPB SCH ×2 (03:12→15:18)
[2017-03-26 06:38] LABS: Hematocrit 28 % (35-47); Hemoglobin 9.1 g/dl (12.0-16.0); Mean Corpuscular HGB Conc 33 g/dl (31-36); Mean Corpuscular Hemoglobin 27 pg (27-31); Mean Corpuscular Volume 82 fL (80-97); Mean Platelet Volume 7 um3 (7.4-10.4); Red Blood Count 3.41 10^6/ul (4.0-5.4); Red Cell Distribution Width 18 % (10.5-15); White Blood Count 11.4 10^3/ul (3.5-10.8)
[2017-03-26] MEDS: fentaNYL Patch Check Q Shift 1 NOTE SCH ×2 (06:42→19:07)
[2017-03-26 06:52] LABS: BUN/Creatinine Ratio 12.5 (8-20); Calcium 8.5 mg/dL (8.6-10.3); EGFR African American 114.3 (>60); EGFR Non-African American 88.8 (>60); Potassium 3.8 mmol/L (3.5-5.0)
[2017-03-26] MEDS ORDERED: Artificial Tear OPHTH.OINT* 3.5 GM ONE (07:16)
[2017-03-26] MEDS ORDERED: fentaNYL* 50 MCG/ML 2 ML VIAL (100 MCG VIAL) ONE ×2 (07:24→09:54)
[2017-03-26] MEDS ORDERED: Ketorolac INJ* 30 MG/ML 1 ML VIAL ONE (07:24)
[2017-03-26] MEDS ORDERED: Lidocaine 2% PF * 5 ML VIAL ONE (07:24)
[2017-03-26] MEDS ORDERED: Propofol* 10 MG/ML 20 ML BTL IV PUSH ONE (07:24)
[2017-03-26] MEDS ORDERED: KETAMINE HCL* 50 MG/ML 10 ML VIAL ONE (07:24)
[2017-03-26] MEDS ORDERED: Midazolam* 1 MG/ML 5 ML VIAL (5 MG) ONE (07:24)
[2017-03-26] MEDS ORDERED: Ondansetron INJ* 2 MG/ML VIAL ONE (07:24)
[2017-03-26] MEDS ORDERED: Dexamethasone IV* 4 MG/ML 1 ML (4 MG) ONE (07:24)
[2017-03-26] MEDS ORDERED: Cisatracurium* 2 MG/ML MDV 5 ML ONE (07:24)
[2017-03-26] MEDS ORDERED: Lidocaine 1% MPF wEPI 200,000* 30 ML SDV ONE (07:32)
[2017-03-26] MEDS ORDERED: Thrombin 5,000 UNITS* 1 APPLIC KIT - topical use - TOPICAL ONE (07:33)
[2017-03-26] MEDS ORDERED: Bacitracin IV* 50,000 UNITS INJ ONE (07:33)
[2017-03-26] MEDS ORDERED: EPHEDrine (Pressors)* 50 MG/ML VIAL ONE (08:29)
[2017-03-26] MEDS ORDERED: Ondansetron INJ* 2 MG/ML VIAL IV PRN (09:08)
[2017-03-26] MEDS: Insulin LISPRO* 1 UNITS UNIT SUBCUT SCH ×4 (09:47→21:20)
[2017-03-26] MEDS: fentaNYL* 50 MCG/ML 2 ML VIAL (100 MCG VIAL) IV PRN ×4 (09:55→10:18)
[2017-03-26] MEDS ORDERED: HYDROmorphone INJ* 1 MG/ML CARPUJECT SYRINGE ONE (10:04)
[2017-03-26] MEDS: HYDROmorphone INJ* 1 MG/ML CARPUJECT SYRINGE IV PRN ×2 (10:05→10:20)
[2017-03-26] MEDS ORDERED: Midazolam* 1 MG/ML 2 ML VIAL (2 MG) ONE (10:14)
[2017-03-26] MEDS: Furosemide TAB* 20 MG PO SCH (12:14)
[2017-03-26] MEDS: Gabapentin CAP(*) 100 MG PO SCH ×2 (12:15→21:20)
[2017-03-26] MEDS: Atorvastatin* 40 MG TAB PO SCH (12:15)
[2017-03-26] MEDS: Donepezil TAB* 5 MG PO SCH (12:15)
[2017-03-26] MEDS: predniSONE TAB* 10 MG PO SCH (12:15)
[2017-03-26] MEDS: Famotidine TAB* 20 MG PO SCH (12:15)
[2017-03-26] MEDS: Docusate CAP* 100 MG PO SCH ×2 (12:18→21:19)
[2017-03-26] MEDS: Magnesium Oxide TAB* 400 MG PO SCH (12:18)
[2017-03-26] MEDS: Multivitamins/Minerals TAB PO SCH (12:18)
[2017-03-26] MEDS: Calcium/Vitamin D TAB 250/125* TAB PO SCH (12:18)
[2017-03-26] MEDS: oxyCODONE/Acetamin 5/325 MG* TAB PO PRN ×2 (12:26→21:20)
[2017-03-26] MEDS: HYDROmorphone INJ* 1 MG/ML CARPUJECT SYRINGE IV SLOW PU PRN (13:31)
--- NOTE | 2017-03-26 14:25 | RAD ---
HISTORY: Lumbar laminectomy COMPARISONS: March 24, 2017 VIEWS: 1 , portable view of the lumbar spine performed intraoperatively for localization during spinal depression FINDINGS: Limited portable crosstable lateral view of the lumbar spine performed at 9:15 AM demonstrates metallic probes at L4-L5 and along the pedicle of L5 and from L5 as the last lumbar type vertebral body. IMPRESSION: LIMITED PORTABLE VIEW OF THE SPINE FOR LOCALIZATION DURING SPINAL SURGERY
--- NOTE | 2017-03-26 15:28 | PN ---
Subjective Date of Service: 03/26/17 Interval History: Patient went to surgery for a revision of spinal surgery this morning. Patient was lethargic when she returned per nursing staff. Patient then became more agitated, screaming about how much her leg hurt. Patient was examined at this time and was able to stop screaming to answer questions. Patient oriented to person and able to identify that she was in the hospital. Patient does not know why she is here and did not know she had surgery this morning. Patient incontinent of urine. Patient able to receive dilaudid dose and is sleeping peacefully at this time. Family History: Unchanged from Admission Social History: Unchanged from Admission Past Medical History: Unchanged from Admission Objective Active Medications: Acetaminophen (Tylenol Tab*) 650 mg PO Q4H PRN PRN Reason: FEVER/PAIN Last Admin: 03/23/17 18:00 Dose: 650 mg Atorvastatin Calcium (Lipitor*) 40 mg PO DAILY [facility] Last Admin: 03/26/17 12:15 Dose: 40 mg Baclofen (Lioresal Tab*) 10 mg PO TID PRN PRN Reason: SPASMS Last Admin: 03/25/17 16:28 Dose: 10 mg Calcium/Vitamin D (Oscal D Tab 250/125*) 2 tab PO DAILY [facility] Last Admin: 03/26/17 12:18 Dose: Not Given Dextrose (D50w Syringe 50 Ml*) 12.5 gm IV PUSH .FOR FS < 60 - SS PRN PRN Reason: FS < 60 Diphenhydramine HCl (Benadryl Iv*) 25 mg IV Q6H PRN PRN Reason: PRURITIS Last Admin: 03/21/17 17:45 Dose: 25 mg Docusate Sodium (Colace Cap*) 100 mg PO BID [facility] Last Admin: 03/26/17 12:18 Dose: Not Given Donepezil HCl (Aricept Tab*) 5 mg PO DAILY [facility] Last Admin: 03/26/17 12:15 Dose: 5 mg Famotidine (Pepcid Tab*) 20 mg PO DAILY [facility] Last Admin: 03/26/17 12:15 Dose: 20 mg Fentanyl (Duragesic Patch 25 Mcg/Hr*) 25 mcg TRANSDERM Q72H [facility] Last Admin: 03/23/17 18:44 Dose: 25 mcg Furosemide (Lasix Tab*) 20 mg PO DAILY [facility] Last Admin: 03/26/17 12:14 Dose: 20 mg Gabapentin (Neurontin Cap(*)) 100 mg PO BID [facility] Last Admin: 03/26/17 12:15 Dose: 100 mg Hydromorphone HCl (Dilaudid Inj*) 1 mg IV SLOW PU Q3H PRN PRN Reason: PAIN Last Admin: 03/26/17 13:31 Dose: 1 mg Sodium Chloride (Ns 0.9% 1000 Ml*) 1,000 mls @ 75 mls/hr IV PER RATE [facility] Last Admin: 03/24/17 05:25 Dose: 75 mls/hr Lactated Ringer's (Lactated Ringers 1000 Ml Bag*) 1,000 mls @ 75 mls/hr IV .per rate [facility] Last Admin: 03/26/17 12:28 Dose: 75 mls/hr Vancomycin HCl 750 mg/ Sodium (Chloride) 250 mls @ 166.667 mls/hr IVPB Q12H [facility] Last Admin: 03/26/17 15:18 Dose: 166.667 mls/hr Gentamicin Sulfate 60 mg/ (Sodium Chloride) 101.5 mls @ 200 mls/hr IVPB Q12HR [facility] Last Admin: 03/26/17 10:47 Dose: Not Given Insulin Human Lispro (Humalog*) 0 units SUBCUT ACHS [facility] PRN Reason: Protocol Last Admin: 03/26/17 12:26 Dose: 1 unit Magnesium Oxide (Magox 400 Tab*) 400 mg PO DAILY [facility] Last Admin: 03/26/17 12:18 Dose: Not Given Multivitamins/Minerals (Theragran/Minerals Tab*) 1 tab PO DAILY [facility] Last Admin: 03/26/17 12:18 Dose: Not Given Oxycodone/Acetaminophen (Percocet 5/325 Tab*) 1 tab PO Q8H PRN PRN Reason: PAIN Last Admin: 03/26/17 12:26 Dose: 1 tab Pharmacy Consult (Vancomycin Per Pharmacy*) 1 note FOLLOW UP . PRN PRN Reason: PER PROTOCOL Pharmacy Consult (Gentamicin Adult Per Pharmacy) 1 note FOLLOW UP . PRN PRN Reason: PER PROTOCOL Pharmacy Profile Note (Fentanyl Patch Check Q Shift) 1 note N/A 0700,1900 [facility] Last Admin: 03/26/17 06:42 Dose: 1 note Pharmacy Profile Note (Vancomycin Trough Check) 1 note FOLLOW UP 1430 ONE Stop: 03/27/17 14:31 Pharmacy Profile Note (Gentamicin Trough Level) 1 note FOLLOW UP 0830 ONE Stop: 03/27/17 08:31 Prednisone (Deltasone Tab*) 10 mg PO DAILY [facility] Last Admin: 03/26/17 12:15 Dose: 10 mg Vital Signs 03/25/17 03/25/17 03/25/17 15:38 16:28 18:28 Temperature 98.7 F Pulse Rate 84 Respiratory 18 22 17 Rate Blood Pressure 110/48 (mmHg) O2 Sat by Pulse 97 Oximetry 03/25/17 03/25/17 03/25/17 19:55 20:55 21:25 Temperature Pulse Rate Respiratory 25 15 15 Rate Blood Pressure (mmHg) O2 Sat by Pulse Oximetry 03/25/17 03/25/17 03/25/17 21:26 23:13 23:34 Temperature Pulse Rate 76 Respiratory 16 17 16 Rate Blood Pressure 155/57 (mmHg) O2 Sat by Pulse 95 Oximetry 03/26/17 03/26/17 03/26/17 00:13 03:36 05:53 Temperature 98.4 F 99.5 F 98.5 F Pulse Rate 87 83 Respiratory 16 14 Rate Blood Pressure 141/39 132/42 (mmHg) O2 Sat by Pulse 94 94 Oximetry 03/26/17 03/26/17 03/26/17 07:00 09:44 09:50 Temperature 99.3 F 98.1 F Pulse Rate 92 86 87 Respiratory 18 14 18 Rate Blood Pressure 146/60 157/51 165/65 (mmHg) O2 Sat by Pulse 94 99 100 Oximetry 03/26/17 03/26/17 03/26/17 09:55 10:00 10:01 Temperature Pulse Rate 101 105 Respiratory 24 23 22 Rate Blood Pressure 180/64 177/76 (mmHg) O2 Sat by Pulse 100 98 Oximetry 03/26/17 03/26/17 03/26/17 10:05 10:06 10:15 Temperature Pulse Rate 100 Respiratory 23 24 16 Rate Blood Pressure 162/66 (mmHg) O2 Sat by Pulse 98 Oximetry 03/26/17 03/26/17 03/26/17 10:18 10:20 10:30 Temperature Pulse Rate 86 Respiratory 18 16 14 Rate Blood Pressure 153/47 (mmHg) O2 Sat by Pulse 100 Oximetry 03/26/17 03/26/17 03/26/17 10:45 11:05 11:06 Temperature 98.2 F 99.6 F Pulse Rate 86 102 Respiratory 18 20 20 Rate Blood Pressure 145/50 (mmHg) O2 Sat by Pulse 100 99 Oximetry 03/26/17 03/26/17 03/26/17 11:08 11:18 11:24 Temperature 99.6 F Pulse Rate 102 Respiratory 20 20 20 Rate Blood Pressure 159/57 (mmHg) O2 Sat by Pulse 99 Oximetry 03/26/17 03/26/17 03/26/17 11:26 11:54 12:15 Temperature 98.1 F Pulse Rate 89 Respiratory 20 18 20 Rate Blood Pressure 153/49 (mmHg) O2 Sat by Pulse 99 Oximetry 03/26/17 03/26/17 03/26/17 12:26 13:31 14:10 Temperature 97.3 F Pulse Rate 84 Respiratory 20 20 16 Rate Blood Pressure 126/43 (mmHg) O2 Sat by Pulse 99 Oximetry 03/26/17 03/26/17 03/26/17 14:15 14:26 14:31 Temperature Pulse Rate Respiratory 20 20 20 Rate Blood Pressure (mmHg) O2 Sat by Pulse Oximetry 03/26/17 15:08 Temperature 98.9 F Pulse Rate 87 Respiratory 16 Rate Blood Pressure 148/54 (mmHg) O2 Sat by Pulse 100 Oximetry Oxygen Devices in Use Now: Nasal Cannula Appearance: Patient is a 81yo female who appears stated age laying comfortably in the bed in [facility]. Eyes: No Scleral Icterus, PERRLA, - - Subconjunctival hemorrhages subsiding. Ears/Nose/Mouth/Throat: NL Teeth, Lips, Gums, Clear Oropharnyx, Mucous Membranes Moist Neck: NL Appearance and Movements; NL JVP, Trachea Midline Respiratory: Symmetrical Chest Expansion and Respiratory Effort, Clear to Auscultation Cardiovascular: RRR, No Edema, - - Grade 2/6 murmur heard best at RUSB and 2nd intercostal space unchanged from previous exam. Radial, DP, PT pulses 2+ B/L. Abdominal: No Hepatosplenomegaly, - - BS hypoactive and present in 4 quadrants. Slight tenderness to palpation over LLQ Lymphatic: No Cervical Adenopathy Extremities: No Edema Skin: - - Surgical site not observed due to pain. Neurological: - - Oriented to person and location. Exam limited by confusion. Result Diagrams: 03/26/17 06:27 03/26/17 06:27 Additional Lab and Data: . 03/22/17 03/22/17 03/22/17 09:15 09:15 16:20 WBC 10.7 RBC 3.63 L Hgb 9.7 L Hct 30 L MCV 82 MCH 27 MCHC 33 RDW 18 H Plt Count 255 MPV 8 Neut % (Auto) 76.6 Lymph % (Auto) 17.8 L [place] % (Auto) 4.0 Eos % (Auto) 0.3 Baso % (Auto) 1.3 Absolute Neuts (auto) 8.2 H Absolute Lymphs (auto) 1.9 Absolute Monos (auto) 0.4 Absolute Eos (auto) 0 Absolute Basos (auto) 0.1 Absolute Nucleated RBC 0 Nucleated RBC % 0 ESR Cancelled Sodium 135 Potassium 4.0 Chloride 101 Carbon Dioxide 25 Anion Gap 9 BUN 16 Creatinine 0.74 Est GFR ( Amer) 96.6 Est GFR (Non-Af Amer) 75.1 BUN/Creatinine Ratio 21.6 H Glucose 72 POC Glucose (mg/dL) Hemoglobin A1c Calcium 8.3 L Total Bilirubin 0.60 AST 12 L ALT 9 Alkaline Phosphatase 66 C-Reactive Protein 82.02 H Total Protein 5.8 L Albumin 2.9 L Globulin 2.9 Albumin/Globulin Ratio 1.0 Vancomycin Trough 18.2 03/23/17 03/23/17 03/24/17 16:38 19:46 06:18 WBC RBC Hgb Hct MCV MCH MCHC RDW Plt Count MPV Neut % (Auto) Lymph % (Auto) [place] % (Auto) Eos % (Auto) Baso % (Auto) Absolute Neuts (auto) Absolute Lymphs (auto) Absolute Monos (auto) Absolute Eos (auto) Absolute Basos (auto) Absolute Nucleated RBC Nucleated RBC % ESR Sodium Potassium Chloride Carbon Dioxide Anion Gap BUN Creatinine Est GFR ( Amer) Est GFR (Non-Af Amer) BUN/Creatinine Ratio Glucose POC Glucose (mg/dL) 316 H 341 H Hemoglobin A1c 6.9 H Calcium Total Bilirubin AST ALT Alkaline Phosphatase C-Reactive Protein Total Protein Albumin Globulin Albumin/Globulin Ratio Vancomycin Trough 03/24/17 03/24/17 03/24/17 07:54 12:00 14:10 WBC RBC Hgb Hct MCV MCH MCHC RDW Plt Count MPV Neut % (Auto) Lymph % (Auto) [place] % (Auto) Eos % (Auto) Baso % (Auto) Absolute Neuts (auto) Absolute Lymphs (auto) Absolute Monos (auto) Absolute Eos (auto) Absolute Basos (auto) Absolute Nucleated RBC Nucleated RBC % ESR Sodium Potassium Chloride Carbon Dioxide Anion Gap BUN Creatinine Est GFR ( Amer) Est GFR (Non-Af Amer) BUN/Creatinine Ratio Glucose POC Glucose (mg/dL) 127 H 91 139 H Hemoglobin A1c Calcium Total Bilirubin AST ALT Alkaline Phosphatase C-Reactive Protein Total Protein Albumin Globulin Albumin/Globulin Ratio Vancomycin Trough Microbiology and Other Data: Microbiology 03/21/17 17:07 Aerobic Blood Culture - Preliminary Blood Venous Staphylococcus Epidermidis Anaerobic Blood Culture - Final Staphylococcus Epidermidis Blood Culture - Final Blood MRSA/MSSA (PCR) - Final Mrsa Negative S.aureus Negative 03/21/17 23:28 Aerobic Blood Culture - Final Blood Venous Staphylococcus Epidermidis Anaerobic Blood Culture - Final Staphylococcus Epidermidis Blood Culture - Final Assess/Plan/Problems-Billing . Assessment: 81 yo female with osteomyelitis vs epidural abscess and BCX growing staph epi. Patient is underwent neurosurgery yesterday with unsatisfactory results and will be going back tomorrow for revision per her surgeon. - Patient Problems (1) Intractable low back pain Current Visit: Yes Status: Acute Priority: High Code(s): M54.5 - LOW BACK PAIN SNOMED Code(s): 09861015511549328 Comment: Pain hard to assess postoperatively. Pain adequately controlled with dilaudid, concerns with oversedation post operatively. Will monitor closely. (2) Diabetes type 2, controlled Current Visit: Yes Status: Acute Priority: High Code(s): E11.9 - TYPE 2 DIABETES MELLITUS WITHOUT COMPLICATIONS SNOMED Code(s): 23163248 Comment: Continue on SSI, hold metformin while in hospital. BS well controlled. Patient currently unable to eat due to sedation and post surgical state. Taper off prednisone after surgery after pain begins to subside. (3) Epidural abscess Current Visit: Yes Status: Acute Priority: High Code(s): G06.2 - EXTRADURAL AND SUBDURAL ABSCESS, UNSPECIFIED SNOMED Code(s): 37135609 Comment: Continue IV Vancomycin with target of 15-20 per ID. (4) Hyperlipidemia Current Visit: Yes Status: Acute Code(s): E78.5 - HYPERLIPIDEMIA, UNSPECIFIED SNOMED Code(s): 46960446 Comment: Continue statin therapy (5) Bacterial endocarditis Current Visit: Yes Status: Acute Code(s): I33.0 - ACUTE AND SUBACUTE INFECTIVE ENDOCARDITIS SNOMED Code(s): 293660737 Comment: Clinical endocarditis by modified Walsh Criteria per ID. Will continue Vancomycin and add on Gentamicin per ID. Appreciate consult from ID. Status and Disposition: Patient is admitted inpatient and will be discharged when medically ready and depending on functional capacity after surgery.
[2017-03-26] MEDS: fentaNYL PATCH 25 MCG/HR TRANSDERM SCH (17:02)
[2017-03-26] MEDS: Baclofen TAB* 10 MG PO PRN (17:21)
[2017-03-27] MEDS: HYDROmorphone INJ* 1 MG/ML CARPUJECT SYRINGE IV SLOW PU PRN ×2 (01:26→09:53)
[2017-03-27] MEDS: Baclofen TAB* 10 MG PO PRN ×3 (01:27→21:03)
[2017-03-27] MEDS: Nystatin TOP POWDER* 15 GM BTL TOPICAL SCH ×4 (01:27→21:31)
[2017-03-27] MEDS: Vancomycin(*) 750 MG in NS 0.9% 250 ML* 250 ML IVPB SCH ×2 (03:27→15:35)
[2017-03-27] MEDS: oxyCODONE/Acetamin 5/325 MG* TAB PO PRN ×3 (05:43→18:00)
[2017-03-27 05:52] LABS: Hematocrit 22 % (35-47); Hemoglobin 7.3 g/dl (12.0-16.0); Mean Corpuscular HGB Conc 33 g/dl (31-36); Mean Corpuscular Hemoglobin 27 pg (27-31); Mean Corpuscular Volume 81 fL (80-97); Mean Platelet Volume 7 um3 (7.4-10.4); Red Blood Count 2.73 10^6/ul (4.0-5.4); Red Cell Distribution Width 18 % (10.5-15); White Blood Count 9.1 10^3/ul (3.5-10.8)
[2017-03-27 05:57] LABS: Albumin 2.5 g/dL (3.2-5.2); BUN/Creatinine Ratio 14.9 (8-20); Calcium 8.1 mg/dL (8.6-10.3); EGFR African American 108.4 (>60); EGFR Non-African American 84.3 (>60); Globulin 2.3 g/dL (2-4); Potassium 4.1 mmol/L (3.5-5.0); Total Bilirubin 0.4 mg/dL (0.2-1.0); Total Protein 4.8 g/dL (6.4-8.9)
[2017-03-27] MEDS: fentaNYL Patch Check Q Shift 1 NOTE SCH ×2 (06:58→19:26)
[2017-03-27] MEDS ORDERED: Gentamicin Trough Level 1 NOTE MISC FOLLOW UP ONE (08:30)
[2017-03-27] MEDS: Atorvastatin* 40 MG TAB PO SCH (09:41)
[2017-03-27] MEDS: Furosemide TAB* 20 MG PO SCH (09:41)
[2017-03-27] MEDS: Multivitamins/Minerals TAB PO SCH (09:41)
[2017-03-27] MEDS: predniSONE TAB* 10 MG PO SCH (09:41)
[2017-03-27] MEDS: Calcium/Vitamin D TAB 250/125* TAB PO SCH (09:41)
[2017-03-27] MEDS: Famotidine TAB* 20 MG PO SCH (09:42)
[2017-03-27] MEDS: Donepezil TAB* 5 MG PO SCH (09:42)
[2017-03-27] MEDS: Magnesium Oxide TAB* 400 MG PO SCH (09:42)
[2017-03-27] MEDS: Gabapentin CAP(*) 100 MG PO SCH (09:42)
[2017-03-27] MEDS: Docusate CAP* 100 MG PO SCH ×2 (09:42→21:03)
--- NOTE | 2017-03-27 10:24 | PN ---
Progress Note - Progress Note Date of Service: 03/27/17 SOAP: Subjective: [S/p decompressive lumbar laminectomy L4-5 and drainage of epidural abscess on and revision on 03/26/17. Patient was feeling well when provider first entered the room and woke her up; denied low back or RLE pain. Severe pain returned with rolling to the right side in bed to examine incision; currently crying out in pain. Complains of right hip to anterior thigh pain. Denies headache, nausea and chest pain.] Objective: [ Vital Signs: Temp Pulse Resp BP Pulse Ox 98.2 F 65 16 100/31 97 03/27/17 07:22 03/27/17 07:22 03/27/17 09:53 03/27/17 07:22 03/27/17 08:38 General: Alert and oriented to person and place. Does not recall undergoing a second surgery. Neuro: Motor and sensory intact. Pain with movement of RLE. Right hip: Extremely painful to light palpation. No visible deformity. Incision: PARAM drain in place and functioning well. Dressing is clean and dry. No swelling. ] Assessment: [Persistent low back and RLE pain, worse with movement.] Plan: [1. Percocet 5/325 mg frequency changed from Q8H to Q4H. 2. Gabapentin discontinued. 3. Right hip xray.]
--- NOTE | 2017-03-27 11:01 | RAD ---
HISTORY: Right hip pain COMPARISONS: None VIEWS: 1, single frontal view of the right hip FINDINGS: BONE DENSITY: Normal. BONES: There is no displaced fracture. JOINTS: There is mild to moderate osteoarthritis of the right hip and SI joint ALIGNMENT: There is no dislocation. SOFT TISSUES: There is soft tissue calcification along the greater trochanter OTHER FINDINGS: None. IMPRESSION: 1. LIMITED SINGLE FRONTAL PROJECTION OF THE RIGHT HIP. 2. OSTEOARTHRITIS. 3. SOFT TISSUE CALCIFICATIONS SUGGESTIVE OF CALCIFIC TENDINOPATHY. 4. NO ACUTE OSSEOUS INJURY. IF SYMPTOMS PERSIST, RECOMMEND REPEAT IMAGING
--- NOTE | 2017-03-27 11:07 | PN ---
Progress Note - Progress Note Date of Service: 03/27/17 SOAP: Subjective: CC: epidural abscess HPI: 81 yo woman with AVR and 2 months low back pain; L spine vertebral osteodiscitis and epidural abscess s/p decompression x2. R leg pain, severe. No fever, rash, or diarrhea. Objective: [] Vital Signs Temp 36.8 C 03/27/17 07:22 Pulse 65 03/27/17 07:22 Resp 16 03/27/17 09:53 BP 100/31 03/27/17 07:22 Pulse Ox 97 03/27/17 08:38 Intake & Output 03/26/17 03/27/17 03/27/17 18:59 06:59 18:59 Intake Total 2385 1534 Output Total 945 417 400 Balance 1440 1117 -400 Intake: IV Fluids 1890 954 LR 1500 954 all fluids 390 IVPB 270 380 all fluids 270 gentamycin 110 vancomycin 270 Oral 225 200 Output: PARAM #1 45 17 Urine 900 400 400 Other: Estimated Void Large Gen:awake, uncomfortable HEENT: L conj hemorrorhage Neck:supple Heart:RRR no murmur Lungs:CTA BL Abd:+BS NTND soft Skin: no rash Laboratory Results - last 24 hr 03/26/17 03/26/17 03/26/17 12:10 17:08 21:00 WBC RBC Hgb Hct MCV MCH MCHC RDW Plt Count MPV Neut % (Auto) Lymph % (Auto) [place] % (Auto) Eos % (Auto) Baso % (Auto) Absolute Neuts (auto) Absolute Lymphs (auto) Absolute Monos (auto) Absolute Eos (auto) Absolute Basos (auto) Absolute Nucleated RBC Nucleated RBC % Sodium Potassium Chloride Carbon Dioxide Anion Gap BUN Creatinine Est GFR ( Amer) Est GFR (Non-Af Amer) BUN/Creatinine Ratio Glucose POC Glucose (mg/dL) 171 H 210 H 314 H Calcium Total Bilirubin AST ALT Alkaline Phosphatase Total Protein Albumin Globulin Albumin/Globulin Ratio Gentamicin Trough Blood Type Antibody Screen 03/27/17 03/27/17 03/27/17 05:33 05:33 05:33 WBC 9.1 RBC 2.73 L Hgb 7.3 L Hct 22 L MCV 81 MCH 27 MCHC 33 RDW 18 H Plt Count 182 MPV 7 L Neut % (Auto) 76.0 Lymph % (Auto) 16.8 L [place] % (Auto) 6.8 Eos % (Auto) 0.1 Baso % (Auto) 0.3 Absolute Neuts (auto) 6.9 Absolute Lymphs (auto) 1.5 Absolute Monos (auto) 0.6 Absolute Eos (auto) 0 Absolute Basos (auto) 0 Absolute Nucleated RBC 0 Nucleated RBC % 0 Sodium 136 Potassium 4.1 Chloride 103 Carbon Dioxide 30 Anion Gap 3 BUN 10 Creatinine 0.67 Est GFR ( Amer) 108.4 Est GFR (Non-Af Amer) 84.3 BUN/Creatinine Ratio 14.9 Glucose 186 H POC Glucose (mg/dL) Calcium 8.1 L Total Bilirubin 0.40 AST 10 L ALT 7 Alkaline Phosphatase 48 Total Protein 4.8 L Albumin 2.5 L Globulin 2.3 Albumin/Globulin Ratio 1.1 Gentamicin Trough 1.9 Blood Type Antibody Screen 03/27/17 03/27/17 05:33 08:25 WBC RBC Hgb Hct MCV MCH MCHC RDW Plt Count MPV Neut % (Auto) Lymph % (Auto) [place] % (Auto) Eos % (Auto) Baso % (Auto) Absolute Neuts (auto) Absolute Lymphs (auto) Absolute Monos (auto) Absolute Eos (auto) Absolute Basos (auto) Absolute Nucleated RBC Nucleated RBC % Sodium Potassium Chloride Carbon Dioxide Anion Gap BUN Creatinine Est GFR ( Amer) Est GFR (Non-Af Amer) BUN/Creatinine Ratio Glucose POC Glucose (mg/dL) 171 H Calcium Total Bilirubin AST ALT Alkaline Phosphatase Total Protein Albumin Globulin Albumin/Globulin Ratio Gentamicin Trough Blood Type A Positive Antibody Screen Negative Assessment: 1. septicemia with Staph epi bacteremia (cleared) due to epidural abscess, vertebral osteodiskitis 2. 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 dementia Plan: 1. continue vancomycin goal tr 15-20; gentamicin 60 mg IV Q12hrs day 09/10, add rifampin 600 mg daily. Daily BMP and regular gent trough goal 0. 35 minutes floor time >50% face to face regarding pain and antibiotics.
[2017-03-27] MEDS: Insulin LISPRO* 1 UNITS UNIT SUBCUT SCH ×4 (11:57→21:04)
[2017-03-27] MEDS ORDERED: Vancomycin Trough Check NOTE FOLLOW UP ONE (14:30)
[2017-03-27] MEDS: RiFAMPin CAP* 300 MG CAP PO SCH (17:57)
--- NOTE | 2017-03-27 20:53 | PN ---
Subjective Date of Service: 03/27/17 Interval History: Pt with some hallucinations in the early AM. Complains of right leg pain, Pt does not understand of infection and recent surgery. Not oriented to time. Surrounded by family/daughter. s/p right hip xray w/o acute injury Family History: Unchanged from Admission Social History: Unchanged from Admission Past Medical History: Unchanged from Admission Objective Active Medications: Acetaminophen (Tylenol Tab*) 650 mg PO Q4H PRN PRN Reason: FEVER/PAIN Last Admin: 03/23/17 18:00 Dose: 650 mg Atorvastatin Calcium (Lipitor*) 40 mg PO DAILY [facility] Last Admin: 03/27/17 09:41 Dose: 40 mg Baclofen (Lioresal Tab*) 10 mg PO TID PRN PRN Reason: SPASMS Last Admin: 03/27/17 15:35 Dose: 10 mg Calcium/Vitamin D (Oscal D Tab 250/125*) 2 tab PO DAILY [facility] Last Admin: 03/27/17 09:41 Dose: 2 tab Dextrose (D50w Syringe 50 Ml*) 12.5 gm IV PUSH .FOR FS < 60 - SS PRN PRN Reason: FS < 60 Diphenhydramine HCl (Benadryl Iv*) 25 mg IV Q6H PRN PRN Reason: PRURITIS Last Admin: 03/21/17 17:45 Dose: 25 mg Docusate Sodium (Colace Cap*) 100 mg PO BID [facility] Last Admin: 03/27/17 09:42 Dose: 100 mg Donepezil HCl (Aricept Tab*) 5 mg PO DAILY [facility] Last Admin: 03/27/17 09:42 Dose: 5 mg Famotidine (Pepcid Tab*) 20 mg PO DAILY [facility] Last Admin: 03/27/17 09:42 Dose: 20 mg Fentanyl (Duragesic Patch 25 Mcg/Hr*) 25 mcg TRANSDERM Q72H [facility] Last Admin: 03/26/17 17:02 Dose: 25 mcg Furosemide (Lasix Tab*) 20 mg PO DAILY [facility] Last Admin: 03/27/17 09:41 Dose: 20 mg Hydromorphone HCl (Dilaudid Inj*) 1 mg IV SLOW PU Q3H PRN PRN Reason: PAIN Last Admin: 03/27/17 09:53 Dose: 1 mg Sodium Chloride (Ns 0.9% 1000 Ml*) 1,000 mls @ 75 mls/hr IV PER RATE [facility] Last Admin: 03/24/17 05:25 Dose: 75 mls/hr Lactated Ringer's (Lactated Ringers 1000 Ml Bag*) 1,000 mls @ 75 mls/hr IV .per rate [facility] Last Admin: 03/27/17 03:31 Dose: 75 mls/hr Vancomycin HCl 750 mg/ Sodium (Chloride) 250 mls @ 166.667 mls/hr IVPB Q12H [facility] Last Admin: 03/27/17 15:35 Dose: 166.667 mls/hr Gentamicin Sulfate 60 mg/ (Sodium Chloride) 101.5 mls @ 203 mls/hr IVPB Q24H [facility] Last Admin: 03/27/17 13:05 Dose: 203 mls/hr Insulin Human Lispro (Humalog*) 0 units SUBCUT ACHS [facility] PRN Reason: Protocol Last Admin: 03/27/17 18:04 Dose: 3 unit Magnesium Oxide (Magox 400 Tab*) 400 mg PO DAILY [facility] Last Admin: 03/27/17 09:42 Dose: 400 mg Multivitamins/Minerals (Theragran/Minerals Tab*) 1 tab PO DAILY [facility] Last Admin: 03/27/17 09:41 Dose: 1 tab Nystatin (Nystatin Top Powder*) 1 applic TOPICAL TID [facility] Last Admin: 03/27/17 15:38 Dose: 1 applic Oxycodone/Acetaminophen (Percocet 5/325 Tab*) 1 tab PO Q4H PRN PRN Reason: PAIN Last Admin: 03/27/17 18:00 Dose: 1 tab Pharmacy Consult (Vancomycin Per Pharmacy*) 1 note FOLLOW UP . PRN PRN Reason: PER PROTOCOL Pharmacy Consult (Gentamicin Adult Per Pharmacy) 1 note FOLLOW UP . PRN PRN Reason: PER PROTOCOL Pharmacy Profile Note (Fentanyl Patch Check Q Shift) 1 note N/A 0700,1900 [facility] Last Admin: 03/27/17 19:26 Dose: 1 note Pharmacy Profile Note (Gentamicin Trough Level) 1 note FOLLOW UP ONCE ONE Stop: 03/29/17 11:31 Prednisone (Deltasone Tab*) 10 mg PO DAILY [facility] Last Admin: 03/27/17 09:41 Dose: 10 mg Rifampin (Rifampin Cap*) 600 mg PO DAILY [facility] Last Admin: 03/27/17 17:57 Dose: 600 mg Vital Signs 09/27/17 09/27/17 09/27/17 21:20 21:31 21:41 Temperature 98.1 F Pulse Rate 69 Respiratory 20 20 20 Rate Blood Pressure 130/50 (mmHg) O2 Sat by Pulse 100 Oximetry 03/26/17 03/26/17 03/27/17 23:20 23:22 01:26 Temperature 98.1 F Pulse Rate 67 Respiratory 14 14 24 Rate Blood Pressure 123/48 (mmHg) O2 Sat by Pulse 100 Oximetry 03/27/17 03/27/17 03/27/17 03:37 05:21 05:43 Temperature 97.8 F Pulse Rate 64 Respiratory 16 18 20 Rate Blood Pressure 120/39 (mmHg) O2 Sat by Pulse 100 Oximetry 03/27/17 03/27/17 03/27/17 07:22 07:43 08:38 Temperature 98.2 F Pulse Rate 65 Respiratory 16 14 Rate Blood Pressure 100/31 (mmHg) O2 Sat by Pulse 99 97 Oximetry 03/27/17 03/27/17 03/27/17 09:10 09:42 09:53 Temperature Pulse Rate Respiratory 16 16 16 Rate Blood Pressure (mmHg) O2 Sat by Pulse 97 Oximetry 03/27/17 03/27/17 03/27/17 10:53 11:39 11:42 Temperature 98.4 F Pulse Rate 72 Respiratory 16 16 14 Rate Blood Pressure 122/46 (mmHg) O2 Sat by Pulse 100 Oximetry 03/27/17 03/27/17 03/27/17 12:51 14:51 18:00 Temperature Pulse Rate Respiratory 16 16 16 Rate Blood Pressure (mmHg) O2 Sat by Pulse Oximetry 03/27/17 19:30 Temperature Pulse Rate Respiratory 18 Rate Blood Pressure (mmHg) O2 Sat by Pulse Oximetry Oxygen Devices in Use Now: Nasal Cannula Appearance: Complaining of right leg pain and occasional back pain. Lying in bed Ears/Nose/Mouth/Throat: NL Teeth, Lips, Gums, Mucous Membranes Moist Neck: NL Appearance and Movements; NL JVP, Trachea Midline Respiratory: Symmetrical Chest Expansion and Respiratory Effort, Clear to Auscultation Cardiovascular: NL Sounds; No Murmurs; No JVD, RRR Abdominal: NL Sounds; No Tenderness; No Distention, No Hepatosplenomegaly Extremities: No Edema, No Clubbing, Cyanosis Skin: No Rash or Ulcers, No Nodules or Sclerosis Neurological: NL Sensation, - - Oriented to person but not situation or time. Result Diagrams: 03/27/17 05:33 03/27/17 05:33 Additional Lab and Data: . Laboratory Results - last 24 hr 03/26/17 03/27/17 03/27/17 21:00 05:33 05:33 WBC 9.1 RBC 2.73 L Hgb 7.3 L Hct 22 L MCV 81 MCH 27 MCHC 33 RDW 18 H Plt Count 182 MPV 7 L Neut % (Auto) 76.0 Lymph % (Auto) 16.8 L Black[place] % (Auto) 6.8 Eos % (Auto) 0.1 Baso % (Auto) 0.3 Absolute Neuts (auto) 6.9 Absolute Lymphs (auto) 1.5 Absolute Monos (auto) 0.6 Absolute Eos (auto) 0 Absolute Basos (auto) 0 Absolute Nucleated RBC 0 Nucleated RBC % 0 Sodium Potassium Chloride Carbon Dioxide Anion Gap BUN Creatinine Est GFR ( Amer) Est GFR (Non-Af Amer) BUN/Creatinine Ratio Glucose POC Glucose (mg/dL) 314 H Calcium Total Bilirubin AST ALT Alkaline Phosphatase Total Protein Albumin Globulin Albumin/Globulin Ratio Gentamicin Trough 1.9 Vancomycin Trough Blood Type Antibody Screen 03/27/17 03/27/17 03/27/17 05:33 05:33 08:25 WBC RBC Hgb Hct MCV MCH MCHC RDW Plt Count MPV Neut % (Auto) Lymph % (Auto) [place] % (Auto) Eos % (Auto) Baso % (Auto) Absolute Neuts (auto) Absolute Lymphs (auto) Absolute Monos (auto) Absolute Eos (auto) Absolute Basos (auto) Absolute Nucleated RBC Nucleated RBC % Sodium 136 Potassium 4.1 Chloride 103 Carbon Dioxide 30 Anion Gap 3 BUN 10 Creatinine 0.67 Est GFR ( Amer) 108.4 Est GFR (Non-Af Amer) 84.3 BUN/Creatinine Ratio 14.9 Glucose 186 H POC Glucose (mg/dL) 171 H Calcium 8.1 L Total Bilirubin 0.40 AST 10 L ALT 7 Alkaline Phosphatase 48 Total Protein 4.8 L Albumin 2.5 L Globulin 2.3 Albumin/Globulin Ratio 1.1 Gentamicin Trough Vancomycin Trough Blood Type A Positive Antibody Screen Negative 03/27/17 03/27/17 12:45 14:14 WBC RBC Hgb Hct MCV MCH MCHC RDW Plt Count MPV Neut % (Auto) Lymph % (Auto) Black[place] % (Auto) Eos % (Auto) Baso % (Auto) Absolute Neuts (auto) Absolute Lymphs (auto) Absolute Monos (auto) Absolute Eos (auto) Absolute Basos (auto) Absolute Nucleated RBC Nucleated RBC % Sodium Potassium Chloride Carbon Dioxide Anion Gap BUN Creatinine Est GFR ( Amer) Est GFR (Non-Af Amer) BUN/Creatinine Ratio Glucose POC Glucose (mg/dL) 157 H Calcium Total Bilirubin AST ALT Alkaline Phosphatase Total Protein Albumin Globulin Albumin/Globulin Ratio Gentamicin Trough Vancomycin Trough 18.5 Blood Type Antibody Screen Microbiology and Other Data: Microbiology 03/24/17 17:42 Anaerobic Culture - Preliminary Wound - Other No Growth Day 3 03/24/17 17:42 Gram Stain - Final Misc Source (See Comment) - Other Wound Culture - Preliminary No Growth Day 3 03/26/17 06:19 Aerobic Blood Culture - Preliminary Blood Venous No Growth Day 1 Anaerobic Blood Culture - Preliminary No Growth Day 1 03/26/17 06:14 Aerobic Blood Culture - Preliminary Blood Venous No Growth Day 1 Anaerobic Blood Culture - Preliminary No Growth Day 1 Diagnostic Imaging: Allergies No Known Allergies Allergy (Verified 03/21/17 14:19) Amb Orders Aspirin TAB* [Aspirin 325 MG TAB*] 325 mg PO DAILY 03/21/17 [Confirmed 03/21/17] Atorvastatin* [Lipitor*] 40 mg PO DAILY 03/21/17 [Confirmed 03/21/17] Calcium Carbonate-Cholecalcife [Calcium 600+D3 600-400 mg-Unit] 1 tab PO DAILY 03/21/17 [Confirmed 03/21/17] Docusate CAP* [Colace Cap*] 100 mg PO BID 03/21/17 [Confirmed 03/21/17] Donepezil TAB* [Aricept 5 MG TAB*] 5 mg PO DAILY 03/21/17 [Confirmed 03/21/17] Furosemide TAB* [Lasix TAB*] 20 mg PO DAILY 03/21/17 [Confirmed 03/21/17] Magnesium Oxide TAB* [MagOx 400 TAB*] 400 mg PO DAILY 03/21/17 [Confirmed ] Metformin HCl [Glucophage Xr] 750 mg PO BID 03/21/17 [Confirmed 03/21/17] Multivitamins/Minerals TAB* [Thera M Plus TAB*] 1 tab PO DAILY 03/21/17 [ Confirmed 03/21/17] Ranitidine HCl 150 mg PO DAILY 03/21/17 [Confirmed 03/21/17] fentaNYL PATCH 25 MCG/HR* [Duragesic PATCH 25 Mcg/Hr*] 25 mcg TRANSDERM Q72H [Confirmed 03/21/17] oxyCODONE/Acetamin 5/325 MG* [Percocet 5/325 TAB*] 1 tab PO Q8H PRN 03/21/17 [ Confirmed 03/21/17] predniSONE TAB* [Deltasone TAB*] 10 mg PO DAILY 03/21/17 [Confirmed 03/21/17] Medications Acetaminophen (Tylenol Tab*) 650 mg PO Q4H PRN PRN Reason: FEVER/PAIN Last Admin: 03/23/17 18:00 Dose: 650 mg Atorvastatin Calcium (Lipitor*) 40 mg PO DAILY [facility] Last Admin: 03/27/17 09:41 Dose: 40 mg Baclofen (Lioresal Tab*) 10 mg PO TID PRN PRN Reason: SPASMS Last Admin: 03/27/17 15:35 Dose: 10 mg Calcium/Vitamin D (Oscal D Tab 250/125*) 2 tab PO DAILY [facility] Last Admin: 03/27/17 09:41 Dose: 2 tab Diphenhydramine HCl (Benadryl Iv*) 25 mg IV Q6H PRN PRN Reason: PRURITIS Last Admin: 03/21/17 17:45 Dose: 25 mg Docusate Sodium (Colace Cap*) 100 mg PO BID [facility] Last Admin: 03/27/17 09:42 Dose: 100 mg Donepezil HCl (Aricept Tab*) 5 mg PO DAILY [facility] Last Admin: 03/27/17 09:42 Dose: 5 mg Famotidine (Pepcid Tab*) 20 mg PO DAILY [facility] Last Admin: 03/27/17 09:42 Dose: 20 mg Fentanyl (Duragesic Patch 25 Mcg/Hr*) 25 mcg TRANSDERM Q72H [facility] Last Admin: 03/26/17 17:02 Dose: 25 mcg Furosemide (Lasix Tab*) 20 mg PO DAILY [facility] Last Admin: 03/27/17 09:41 Dose: 20 mg Hydromorphone HCl (Dilaudid Inj*) 1 mg IV SLOW PU Q3H PRN PRN Reason: PAIN Last Admin: 03/27/17 09:53 Dose: 1 mg Sodium Chloride (Ns 0.9% 1000 Ml*) 1,000 mls @ 75 mls/hr IV PER RATE [facility] Last Admin: 03/24/17 05:25 Dose: 75 mls/hr Lactated Ringer's (Lactated Ringers 1000 Ml Bag*) 1,000 mls @ 75 mls/hr IV .per rate [facility] Last Admin: 03/27/17 03:31 Dose: 75 mls/hr Vancomycin HCl 750 mg/ Sodium (Chloride) 250 mls @ 166.667 mls/hr IVPB Q12H [facility] Last Admin: 03/27/17 15:35 Dose: 166.667 mls/hr Gentamicin Sulfate 60 mg/ (Sodium Chloride) 101.5 mls @ 203 mls/hr IVPB Q24H [facility] Last Admin: 03/27/17 13:05 Dose: 203 mls/hr Insulin Human Lispro (Humalog*) 0 units SUBCUT ACHS [facility] PRN Reason: Protocol Last Admin: 03/27/17 18:04 Dose: 3 unit Magnesium Oxide (Magox 400 Tab*) 400 mg PO DAILY [facility] Last Admin: 03/27/17 09:42 Dose: 400 mg Multivitamins/Minerals (Theragran/Minerals Tab*) 1 tab PO DAILY [facility] Last Admin: 03/27/17 09:41 Dose: 1 tab Nystatin (Nystatin Top Powder*) 1 applic TOPICAL TID [facility] Last Admin: 03/27/17 15:38 Dose: 1 applic Oxycodone/Acetaminophen (Percocet 5/325 Tab*) 1 tab PO Q4H PRN PRN Reason: PAIN Last Admin: 03/27/17 18:00 Dose: 1 tab Pharmacy Profile Note (Fentanyl Patch Check Q Shift) 1 note N/A 0700,1900 [facility] Last Admin: 03/27/17 19:26 Dose: 1 note Prednisone (Deltasone Tab*) 10 mg PO DAILY [facility] Last Admin: 03/27/17 09:41 Dose: 10 mg Rifampin (Rifampin Cap*) 600 mg PO DAILY [facility] Last Admin: 03/27/17 17:57 Dose: 600 mg Discontinued Medications Fentanyl Citrate (Fentanyl*) 10 mcg IV Q2M PRN PRN Reason: PAIN - MODERATE Stop: 03/24/17 22:20 Last Admin: 03/24/17 18:54 Dose: 10 mcg Fentanyl Citrate (Fentanyl*) 25 mcg IV Q5M PRN PRN Reason: PAIN - MODERATE Stop: 03/26/17 09:29 Last Admin: 03/26/17 10:18 Dose: 25 mcg Gabapentin (Neurontin Cap(*)) 100 mg PO BID [facility] Last Admin: 03/27/17 09:42 Dose: 100 mg Heparin Sodium (Porcine) (Heparin Vial(*)) 5,000 units SUBCUT Q8HR [facility] Last Admin: 03/23/17 05:23 Dose: 5,000 units Hydromorphone HCl (Dilaudid Inj*) 0.5 mg IV SLOW PU ED ONCE ONE Stop: 03/21/17 15:14 Last Admin: 03/21/17 17:28 Dose: 0.5 mg Hydromorphone HCl (Dilaudid Inj*) 1 mg IV SLOW PU Q4H PRN PRN Reason: PAIN Last Admin: 03/25/17 08:18 Dose: 1 mg Hydromorphone HCl (Dilaudid Inj*) 0.2 mg IV Q10M PRN PRN Reason: PAIN - SEVERE Stop: 03/26/17 09:49 Last Admin: 03/26/17 10:20 Dose: 0.2 mg Sodium Chloride (Ns 0.9% 1000 Ml*) 1,000 mls @ 1,000 mls/hr IV ED ONCE ONE Stop: 03/21/17 16:12 Last Admin: 03/21/17 17:11 Dose: 1,000 mls/hr Cefepime HCl 2 gm/ Sodium (Chloride) 50 mls @ 100 mls/hr IVPB ED ONCE ONE Stop: 03/21/17 17:00 Last Admin: 03/21/17 19:50 Dose: Vancomycin HCl 750 mg/ Sodium (Chloride) 250 mls @ 166.667 mls/hr IVPB ED ONCE ONE Stop: 03/21/17 18:29 Last Admin: 03/21/17 17:11 Dose: 166.667 mls/hr Cefepime HCl 2 gm/ Sodium (Chloride) 50 mls @ 100 mls/hr IVPB Q24H [facility] Last Admin: 03/23/17 20:01 Dose: 100 mls/hr Vancomycin HCl 750 mg/ Sodium (Chloride) 250 mls @ 166.667 mls/hr IVPB Q8H [facility] Last Admin: 03/25/17 10:47 Dose: Not Given Non-Admin Reason: Patient Off Unit Gentamicin Sulfate 60 mg/ (Sodium Chloride) 101.5 mls @ 200 mls/hr IVPB Q12HR [facility] Last Admin: 03/27/17 08:43 Dose: Not Given Non-Admin Reason: Per Parameter Ketorolac Tromethamine (Toradol Inj*) 15 mg IV ONCE ONE Stop: 03/23/17 21:43 Last Admin: 03/23/17 23:34 Dose: Ondansetron HCl (Zofran Inj*) 4 mg IV ED ONCE ONE Stop: 03/21/17 15:14 Last Admin: 03/21/17 17:28 Dose: 4 mg Oxycodone/Acetaminophen (Percocet 5/325 Tab*) 1 tab PO Q8H PRN PRN Reason: PAIN Last Admin: 03/27/17 05:43 Dose: 1 tab Pharmacy Profile Note (Vancomycin Trough Check) 1 note FOLLOW UP 1630 ONE Stop: 03/22/17 16:31 Last Admin: 03/22/17 17:36 Dose: 1 note Pharmacy Profile Note (Vancomycin Trough Check) 1 note FOLLOW UP 0900 ONE Stop: 03/25/17 09:01 Last Admin: 03/25/17 12:10 Dose: 1 note Comments: done Pharmacy Profile Note (Vancomycin Trough Check) 1 note FOLLOW UP 1430 ONE Stop: 03/27/17 14:31 Last Admin: 03/27/17 15:38 Dose: 1 note Pharmacy Profile Note (Gentamicin Trough Level) 1 note FOLLOW UP 0830 ONE Stop: 03/27/17 08:31 Last Admin: 03/27/17 09:51 Dose: 1 note Assess/Plan/Problems-Billing . Assessment: 81 yo female with osteomyelitis/epidural abscess and BCX growing staph epi. s/p 2 neurosurgeries (03/24, 03/26). 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 - Patient Problems (1) Bacterial endocarditis Current Visit: Yes Status: Acute Code(s): I33.0 - ACUTE AND SUBACUTE INFECTIVE ENDOCARDITIS SNOMED Code(s): 246317647 Comment: Clinical endocarditis by modified Walsh Criteria per ID. Will continue Vancomycin and Gentamicin per ID. Added rifampin. Appreciate consult from ID. Gent levels. (2) Diabetes type 2, controlled Current Visit: Yes Status: Acute Priority: High Code(s): E11.9 - TYPE 2 DIABETES MELLITUS WITHOUT COMPLICATIONS SNOMED Code(s): 57626339 Comment: Continue on SSI, hold metformin while in hospital. BS well controlled. Patient currently unable to eat due to sedation and post surgical state. Taper off prednisone after surgery after pain begins to subside. (3) Intractable low back pain Current Visit: Yes Status: Acute Priority: High Code(s): M54.5 - LOW BACK PAIN SNOMED Code(s): 63445376201312505 Comment: dilaudid 1mg IV q3, fentanyl 25mcg daily, oxycodone 1mg po q4, baclofen 10mg TID prn. Was stopped off gabapentin given potential sideffects (4) Epidural abscess Current Visit: Yes Status: Acute Priority: High Code(s): G06.2 - EXTRADURAL AND SUBDURAL ABSCESS, UNSPECIFIED SNOMED Code(s): 69357925 Comment: Continue IV Vancomycin with target of 15-20 per ID. (5) Hyperlipidemia Current Visit: Yes Status: Acute Code(s): E78.5 - HYPERLIPIDEMIA, UNSPECIFIED SNOMED Code(s): 24595694 Comment: Continue statin therapy Status and Disposition: Patient is admitted inpatient and will be discharged when medically ready and depending on functional capacity after surgery. Attending: Virgilio Arzate
[2017-03-27] MEDS ORDERED: RiFAMPin CAP* 300 MG CAP PO SCH (21:00)
[2017-03-28] MEDS: oxyCODONE/Acetamin 5/325 MG* TAB PO PRN ×4 (01:33→20:24)
[2017-03-28] MEDS: Vancomycin(*) 750 MG in NS 0.9% 250 ML* 250 ML IVPB SCH ×2 (03:22→15:15)
[2017-03-28] MEDS: Baclofen TAB* 10 MG PO PRN (04:17)
[2017-03-28] MEDS: HYDROmorphone INJ* 1 MG/ML CARPUJECT SYRINGE IV SLOW PU PRN ×3 (06:06→20:37)
[2017-03-28] MEDS: fentaNYL Patch Check Q Shift 1 NOTE SCH ×2 (07:28→19:18)
--- NOTE | 2017-03-28 07:42 | PN ---
Progress Note - Progress Note Date of Service: 03/28/17 SOAP: Subjective: []POD # 2 Remains confused Right leg pain persists Culture neg from surg Friday Objective: []Moderate drain output HCT 22 Neuro intact Assessment: [] Continues to have significant pain Plan: []Continue present antibiotics Transfuse if hospitalist feel indicated
[2017-03-28 08:22] LABS: EGFR African American 101.4 (>60); EGFR Non-African American 78.8 (>60)
[2017-03-28] MEDS: Insulin LISPRO* 1 UNITS UNIT SUBCUT SCH ×4 (09:35→20:33)
--- NOTE | 2017-03-28 10:36 | PN ---
Progress Note - Progress Note Date of Service: 03/28/17 SOAP: Subjective: CC: epidural abscess HPI: 81 yo woman with AVR and 2 months low back pain; L spine vertebral osteodiscitis and epidural abscess s/p decompression x2. R leg pain improved with pain medicine. No change in hearing or balance. Objective: [] Vital Signs Temp 36.5 C 03/28/17 07:30 Pulse 66 03/28/17 07:30 Resp 16 03/28/17 07:30 BP 127/47 03/28/17 07:30 Pulse Ox 100 03/28/17 07:30 Intake & Output 03/27/17 03/28/17 03/28/17 18:59 06:59 18:59 Intake Total 400 1550 120 Output Total 865 1185 300 Balance -465 365 -180 Intake: IV Fluids 1300 LR 1020 vancomycin 280 Oral 400 250 120 Output: PARAM #1 15 35 0 Urine 850 1150 300 Other: Estimated Void Large # Voids 1 Gen:awake, uncomfortable HEENT: L conj hemorrorhage Neck:supple Heart:RRR no murmur Lungs:CTA BL Abd:+BS NTND soft Skin: no rash; spine incision intact no erythema Assessment: 1. septicemia with Staph epi bacteremia (cleared) due to epidural abscess, vertebral osteodiskitis, infective endocarditis 2. 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 dementia Plan: 1. continue vancomycin goal tr 15-20; gentamicin 60 mg IV Q12hrs day 11/10, add rifampin 600 mg daily. Daily BMP and regular gent trough goal 0. 35 minutes floor time >50% face to face dicussion with her regarding joint terminal attack controller antibiotics and monitoring for side effects.
[2017-03-28] MEDS: Docusate CAP* 100 MG PO SCH ×2 (11:09→20:24)
[2017-03-28] MEDS: RiFAMPin CAP* 300 MG CAP PO SCH (11:09)
[2017-03-28] MEDS: Multivitamins/Minerals TAB PO SCH (11:11)
[2017-03-28] MEDS: predniSONE TAB* 10 MG PO SCH (11:12)
[2017-03-28] MEDS: Furosemide TAB* 20 MG PO SCH (11:15)
[2017-03-28] MEDS: Atorvastatin* 40 MG TAB PO SCH (11:16)
[2017-03-28] MEDS: Donepezil TAB* 5 MG PO SCH (11:17)
[2017-03-28] MEDS: Magnesium Oxide TAB* 400 MG PO SCH (11:18)
[2017-03-28] MEDS: Famotidine TAB* 20 MG PO SCH (11:19)
[2017-03-28] MEDS: Calcium/Vitamin D TAB 250/125* TAB PO SCH (11:20)
[2017-03-28] MEDS: Nystatin TOP POWDER* 15 GM BTL TOPICAL SCH ×3 (12:27→20:29)
[2017-03-28] MEDS: Acetaminophen TAB* 325 MG PO PRN (15:23)
[2017-03-28 15:26] LABS: Hematocrit 25 % (35-47)
[2017-03-28 15:40] LABS: Hemoglobin 8.1 g/dl (12.0-16.0); Mean Corpuscular HGB Conc 33 g/dl (31-36); Mean Corpuscular Hemoglobin 27 pg (27-31); Mean Corpuscular Volume 83 fL (80-97); Mean Platelet Volume 8 um3 (7.4-10.4); Red Blood Count 2.96 10^6/ul (4.0-5.4); Red Cell Distribution Width 18 % (10.5-15); White Blood Count 10.2 10^3/ul (3.5-10.8)
[2017-03-28 16:57] LABS: Urine Bilirubin Negative (Negative); Urine Glucose 1+(50 mg/dL) (Negative); Urine Nitrite Negative (Negative)
--- NOTE | 2017-03-28 17:52 | PN ---
Subjective Date of Service: 03/28/17 Interval History: Pt was difficult to arouse in AM by RN after 1mg IV dilaudid at 6am and percoset at 5am. When evaluated pt sleepy but arousable to loud voice. IV dilaudid decreased to 0.5mg. Repeat CBC improved to 8.1. Family History: Unchanged from Admission Social History: Unchanged from Admission Past Medical History: Unchanged from Admission Objective Active Medications: Acetaminophen (Tylenol Tab*) 650 mg PO Q4H PRN PRN Reason: FEVER/PAIN Last Admin: 03/28/17 15:23 Dose: 650 mg Atorvastatin Calcium (Lipitor*) 40 mg PO DAILY [facility] Last Admin: 03/28/17 11:16 Dose: 40 mg Calcium/Vitamin D (Oscal D Tab 250/125*) 2 tab PO DAILY [facility] Last Admin: 03/28/17 11:20 Dose: 2 tab Dextrose (D50w Syringe 50 Ml*) 12.5 gm IV PUSH .FOR FS < 60 - SS PRN PRN Reason: FS < 60 Diphenhydramine HCl (Benadryl Iv*) 25 mg IV Q6H PRN PRN Reason: PRURITIS Last Admin: 03/21/17 17:45 Dose: 25 mg Docusate Sodium (Colace Cap*) 100 mg PO BID [facility] Last Admin: 03/28/17 11:09 Dose: 100 mg Donepezil HCl (Aricept Tab*) 5 mg PO DAILY [facility] Last Admin: 03/28/17 11:17 Dose: 5 mg Famotidine (Pepcid Tab*) 20 mg PO DAILY [facility] Last Admin: 03/28/17 11:19 Dose: 20 mg Fentanyl (Duragesic Patch 25 Mcg/Hr*) 25 mcg TRANSDERM Q72H [facility] Last Admin: 03/26/17 17:02 Dose: 25 mcg Furosemide (Lasix Tab*) 20 mg PO DAILY [facility] Last Admin: 03/28/17 11:15 Dose: 20 mg Gabapentin (Neurontin Cap(*)) 100 mg PO BID [facility] Hydromorphone HCl (Dilaudid Inj*) 0.5 mg IV SLOW PU Q4H PRN PRN Reason: PAIN Last Admin: 03/28/17 15:43 Dose: 0.5 mg Sodium Chloride (Ns 0.9% 1000 Ml*) 1,000 mls @ 75 mls/hr IV PER RATE [facility] Last Admin: 03/24/17 05:25 Dose: 75 mls/hr Lactated Ringer's (Lactated Ringers 1000 Ml Bag*) 1,000 mls @ 75 mls/hr IV .per rate [facility] Last Admin: 03/28/17 15:23 Dose: 75 mls/hr Vancomycin HCl 750 mg/ Sodium (Chloride) 250 mls @ 166.667 mls/hr IVPB Q12H [facility] Last Admin: 03/28/17 15:15 Dose: 166.667 mls/hr Gentamicin Sulfate 60 mg/ (Sodium Chloride) 101.5 mls @ 203 mls/hr IVPB Q24H [facility] Last Admin: 03/28/17 12:29 Dose: 203 mls/hr Insulin Human Lispro (Humalog*) 0 units SUBCUT ACHS [facility] PRN Reason: Protocol Last Admin: 03/28/17 13:30 Dose: 1 unit Magnesium Oxide (Magox 400 Tab*) 400 mg PO DAILY [facility] Last Admin: 03/28/17 11:18 Dose: 400 mg Multivitamins/Minerals (Theragran/Minerals Tab*) 1 tab PO DAILY [facility] Last Admin: 03/28/17 11:11 Dose: 1 tab Nystatin (Nystatin Top Powder*) 1 applic TOPICAL TID [facility] Last Admin: 03/28/17 15:14 Dose: Not Given Oxycodone/Acetaminophen (Percocet 5/325 Tab*) 1 tab PO Q4H PRN PRN Reason: PAIN Last Admin: 03/28/17 11:14 Dose: 1 tab Pharmacy Consult (Vancomycin Per Pharmacy*) 1 note FOLLOW UP . PRN PRN Reason: PER PROTOCOL Pharmacy Consult (Gentamicin Adult Per Pharmacy) 1 note FOLLOW UP . PRN PRN Reason: PER PROTOCOL Pharmacy Profile Note (Fentanyl Patch Check Q Shift) 1 note N/A 0700,1900 [facility] Last Admin: 03/28/17 07:28 Dose: 1 note Pharmacy Profile Note (Gentamicin Trough Level) 1 note FOLLOW UP ONCE ONE Stop: 03/29/17 11:31 Prednisone (Deltasone Tab*) 10 mg PO DAILY [facility] Last Admin: 03/28/17 11:12 Dose: 10 mg Rifampin (Rifampin Cap*) 600 mg PO DAILY [facility] Last Admin: 03/28/17 11:09 Dose: 600 mg Vital Signs 03/27/17 03/27/17 03/27/17 18:00 19:30 20:00 Temperature Pulse Rate Respiratory 16 18 16 Rate Blood Pressure (mmHg) O2 Sat by Pulse Oximetry 03/27/17 03/28/17 03/28/17 20:57 00:00 00:19 Temperature 98.1 F 97.4 F Pulse Rate 72 72 Respiratory 16 16 Rate Blood Pressure 120/39 122/43 (mmHg) O2 Sat by Pulse 98 100 100 Oximetry 03/28/17 03/28/17 03/28/17 01:33 03:33 04:08 Temperature 98.8 F Pulse Rate 81 Respiratory 20 18 18 Rate Blood Pressure 156/54 (mmHg) O2 Sat by Pulse 100 Oximetry 03/28/17 03/28/17 03/28/17 05:46 06:06 07:30 Temperature 97.7 F Pulse Rate 66 Respiratory 18 18 16 Rate Blood Pressure 127/47 (mmHg) O2 Sat by Pulse 100 Oximetry 03/28/17 03/28/17 03/28/17 07:46 11:14 11:17 Temperature Pulse Rate Respiratory 12 18 Rate Blood Pressure (mmHg) O2 Sat by Pulse 99 Oximetry 03/28/17 03/28/17 11:41 15:43 Temperature 98.5 F Pulse Rate 77 Respiratory 12 20 Rate Blood Pressure 141/43 (mmHg) O2 Sat by Pulse 100 Oximetry Oxygen Devices in Use Now: Nasal Cannula Appearance: sleepy but arousable. Eyes: No Scleral Icterus, PERRLA Ears/Nose/Mouth/Throat: NL Teeth, Lips, Gums, Mucous Membranes Moist Neck: NL Appearance and Movements; NL JVP Respiratory: Symmetrical Chest Expansion and Respiratory Effort, Clear to Auscultation Cardiovascular: NL Sounds; No Murmurs; No JVD, RRR Abdominal: NL Sounds; No Tenderness; No Distention, No Hepatosplenomegaly Extremities: No Edema, - Skin: No Rash or Ulcers Neurological: Alert and Oriented x 3, NL Muscle Strength and Tone Result Diagrams: 03/28/17 12:22 03/28/17 07:43 Additional Lab and Data: . Laboratory Results - last 24 hr 03/27/17 03/27/17 03/28/17 17:44 20:56 07:43 WBC RBC Hgb Hct MCV MCH MCHC RDW Plt Count MPV Neut % (Auto) Lymph % (Auto) [place] % (Auto) Eos % (Auto) Baso % (Auto) Absolute Neuts (auto) Absolute Lymphs (auto) Absolute Monos (auto) Absolute Eos (auto) Absolute Basos (auto) Absolute Nucleated RBC Nucleated RBC % BUN 14 Creatinine 0.71 Est GFR ( Amer) 101.4 Est GFR (Non-Af Amer) 78.8 POC Glucose (mg/dL) 295 H 266 H Urine Color Urine Appearance Urine pH Ur Specific [place] Urine Protein Urine Ketones Urine Blood Urine Nitrate Urine Bilirubin Urine Urobilinogen Ur Leukocyte Esterase Urine Glucose 03/28/17 03/28/17 03/28/17 07:43 11:42 12:22 WBC 10.2 RBC 2.96 L Hgb 8.1 L Hct 25 L MCV 83 MCH 27 MCHC 33 RDW 18 H Plt Count 229 MPV 8 Neut % (Auto) 76.3 Lymph % (Auto) 17.5 L [place] % (Auto) 5.1 Eos % (Auto) 0.6 Baso % (Auto) 0.5 Absolute Neuts (auto) 7.8 H Absolute Lymphs (auto) 1.8 Absolute Monos (auto) 0.5 Absolute Eos (auto) 0.1 Absolute Basos (auto) 0 Absolute Nucleated RBC 0 Nucleated RBC % 0 BUN Creatinine Est GFR ( Amer) Est GFR (Non-Af Amer) POC Glucose (mg/dL) 161 H 170 H Urine Color Urine Appearance Urine pH Ur Specific [place] Urine Protein Urine Ketones Urine Blood Urine Nitrate Urine Bilirubin Urine Urobilinogen Ur Leukocyte Esterase Urine Glucose 03/28/17 03/28/17 16:45 17:31 WBC RBC Hgb Hct MCV MCH MCHC RDW Plt Count MPV Neut % (Auto) Lymph % (Auto) [place] % (Auto) Eos % (Auto) Baso % (Auto) Absolute Neuts (auto) Absolute Lymphs (auto) Absolute Monos (auto) Absolute Eos (auto) Absolute Basos (auto) Absolute Nucleated RBC Nucleated RBC % BUN Creatinine Est GFR ( Amer) Est GFR (Non-Af Amer) POC Glucose (mg/dL) 248 H Urine Color [place] Urine Appearance Clear Urine pH 7.0 Ur Specific [place] 1.005 L Urine Protein Negative Urine Ketones Negative Urine Blood Negative Urine Nitrate Negative Urine Bilirubin Negative Urine Urobilinogen Negative Ur Leukocyte Esterase Negative Urine Glucose 1+(50 mg/dl) H Microbiology and Other Data: Microbiology 03/24/17 17:42 Wound - Other Anaerobic Culture - Final No Growth Day 4 03/24/17 17:42 Misc Source (See Comment) - Other Gram Stain - Final 03/24/17 17:42 Misc Source (See Comment) - Other Wound Culture - Final No Growth Day 4 03/26/17 06:19 Blood Venous Aerobic Blood Culture - Preliminary No Growth Day 2 03/26/17 06:19 Blood Venous Anaerobic Blood Culture - Preliminary No Growth Day 2 03/26/17 06:19 Blood Venous Blood Culture - Final 03/26/17 06:14 Blood Venous Aerobic Blood Culture - Preliminary No Growth Day 2 03/26/17 06:14 Blood Venous Anaerobic Blood Culture - Preliminary No Growth Day 2 03/26/17 06:14 Blood Venous Blood Culture - Final Diagnostic Imaging: Allergies No Known Allergies Allergy (Verified 03/21/17 14:19) Amb Orders Aspirin TAB* [Aspirin 325 MG TAB*] 325 mg PO DAILY 03/21/17 [Confirmed 03/21/17] Atorvastatin* [Lipitor*] 40 mg PO DAILY 03/21/17 [Confirmed 03/21/17] Calcium Carbonate-Cholecalcife [Calcium 600+D3 600-400 mg-Unit] 1 tab PO DAILY 03/21/17 [Confirmed 03/21/17] Docusate CAP* [Colace Cap*] 100 mg PO BID 03/21/17 [Confirmed 03/21/17] Donepezil TAB* [Aricept 5 MG TAB*] 5 mg PO DAILY 03/21/17 [Confirmed 03/21/17] Furosemide TAB* [Lasix TAB*] 20 mg PO DAILY 03/21/17 [Confirmed 03/21/17] Magnesium Oxide TAB* [MagOx 400 TAB*] 400 mg PO DAILY 03/21/17 [Confirmed ] Metformin HCl [Glucophage Xr] 750 mg PO BID 03/21/17 [Confirmed 03/21/17] Multivitamins/Minerals TAB* [Thera M Plus TAB*] 1 tab PO DAILY 03/21/17 [ Confirmed 03/21/17] Ranitidine HCl 150 mg PO DAILY 03/21/17 [Confirmed 03/21/17] fentaNYL PATCH 25 MCG/HR* [Duragesic PATCH 25 Mcg/Hr*] 25 mcg TRANSDERM Q72H [Confirmed 03/21/17] oxyCODONE/Acetamin 5/325 MG* [Percocet 5/325 TAB*] 1 tab PO Q8H PRN 03/21/17 [ Confirmed 03/21/17] predniSONE TAB* [Deltasone TAB*] 10 mg PO DAILY 03/21/17 [Confirmed 03/21/17] Medications Acetaminophen (Tylenol Tab*) 650 mg PO Q4H PRN PRN Reason: FEVER/PAIN Last Admin: 03/23/17 18:00 Dose: 650 mg Atorvastatin Calcium (Lipitor*) 40 mg PO DAILY [facility] Last Admin: 03/27/17 09:41 Dose: 40 mg Baclofen (Lioresal Tab*) 10 mg PO TID PRN PRN Reason: SPASMS Last Admin: 03/27/17 15:35 Dose: 10 mg Calcium/Vitamin D (Oscal D Tab 250/125*) 2 tab PO DAILY [facility] Last Admin: 03/27/17 09:41 Dose: 2 tab Diphenhydramine HCl (Benadryl Iv*) 25 mg IV Q6H PRN PRN Reason: PRURITIS Last Admin: 03/21/17 17:45 Dose: 25 mg Docusate Sodium (Colace Cap*) 100 mg PO BID [facility] Last Admin: 03/27/17 09:42 Dose: 100 mg Donepezil HCl (Aricept Tab*) 5 mg PO DAILY [facility] Last Admin: 03/27/17 09:42 Dose: 5 mg Famotidine (Pepcid Tab*) 20 mg PO DAILY [facility] Last Admin: 03/27/17 09:42 Dose: 20 mg Fentanyl (Duragesic Patch 25 Mcg/Hr*) 25 mcg TRANSDERM Q72H [facility] Last Admin: 03/26/17 17:02 Dose: 25 mcg Furosemide (Lasix Tab*) 20 mg PO DAILY [facility] Last Admin: 03/27/17 09:41 Dose: 20 mg Hydromorphone HCl (Dilaudid Inj*) 1 mg IV SLOW PU Q3H PRN PRN Reason: PAIN Last Admin: 03/27/17 09:53 Dose: 1 mg Sodium Chloride (Ns 0.9% 1000 Ml*) 1,000 mls @ 75 mls/hr IV PER RATE [facility] Last Admin: 03/24/17 05:25 Dose: 75 mls/hr Lactated Ringer's (Lactated Ringers 1000 Ml Bag*) 1,000 mls @ 75 mls/hr IV .per rate [facility] Last Admin: 03/27/17 03:31 Dose: 75 mls/hr Vancomycin HCl 750 mg/ Sodium (Chloride) 250 mls @ 166.667 mls/hr IVPB Q12H [facility] Last Admin: 03/27/17 15:35 Dose: 166.667 mls/hr Gentamicin Sulfate 60 mg/ (Sodium Chloride) 101.5 mls @ 203 mls/hr IVPB Q24H [facility] Last Admin: 03/27/17 13:05 Dose: 203 mls/hr Insulin Human Lispro (Humalog*) 0 units SUBCUT ACHS [facility] PRN Reason: Protocol Last Admin: 03/27/17 18:04 Dose: 3 unit Magnesium Oxide (Magox 400 Tab*) 400 mg PO DAILY [facility] Last Admin: 03/27/17 09:42 Dose: 400 mg Multivitamins/Minerals (Theragran/Minerals Tab*) 1 tab PO DAILY [facility] Last Admin: 03/27/17 09:41 Dose: 1 tab Nystatin (Nystatin Top Powder*) 1 applic TOPICAL TID [facility] Last Admin: 03/27/17 15:38 Dose: 1 applic Oxycodone/Acetaminophen (Percocet 5/325 Tab*) 1 tab PO Q4H PRN PRN Reason: PAIN Last Admin: 03/27/17 18:00 Dose: 1 tab Pharmacy Profile Note (Fentanyl Patch Check Q Shift) 1 note N/A 0700,1900 [facility] Last Admin: 03/27/17 19:26 Dose: 1 note Prednisone (Deltasone Tab*) 10 mg PO DAILY [facility] Last Admin: 03/27/17 09:41 Dose: 10 mg Rifampin (Rifampin Cap*) 600 mg PO DAILY [facility] Last Admin: 03/27/17 17:57 Dose: 600 mg Discontinued Medications Fentanyl Citrate (Fentanyl*) 10 mcg IV Q2M PRN PRN Reason: PAIN - MODERATE Stop: 03/24/17 22:20 Last Admin: 03/24/17 18:54 Dose: 10 mcg Fentanyl Citrate (Fentanyl*) 25 mcg IV Q5M PRN PRN Reason: PAIN - MODERATE Stop: 03/26/17 09:29 Last Admin: 03/26/17 10:18 Dose: 25 mcg Gabapentin (Neurontin Cap(*)) 100 mg PO BID [facility] Last Admin: 03/27/17 09:42 Dose: 100 mg Heparin Sodium (Porcine) (Heparin Vial(*)) 5,000 units SUBCUT Q8HR [facility] Last Admin: 03/23/17 05:23 Dose: 5,000 units Hydromorphone HCl (Dilaudid Inj*) 0.5 mg IV SLOW PU ED ONCE ONE Stop: 03/21/17 15:14 Last Admin: 03/21/17 17:28 Dose: 0.5 mg Hydromorphone HCl (Dilaudid Inj*) 1 mg IV SLOW PU Q4H PRN PRN Reason: PAIN Last Admin: 03/25/17 08:18 Dose: 1 mg Hydromorphone HCl (Dilaudid Inj*) 0.2 mg IV Q10M PRN PRN Reason: PAIN - SEVERE Stop: 03/26/17 09:49 Last Admin: 03/26/17 10:20 Dose: 0.2 mg Sodium Chloride (Ns 0.9% 1000 Ml*) 1,000 mls @ 1,000 mls/hr IV ED ONCE ONE Stop: 03/21/17 16:12 Last Admin: 03/21/17 17:11 Dose: 1,000 mls/hr Cefepime HCl 2 gm/ Sodium (Chloride) 50 mls @ 100 mls/hr IVPB ED ONCE ONE Stop: 03/21/17 17:00 Last Admin: 03/21/17 19:50 Dose: Vancomycin HCl 750 mg/ Sodium (Chloride) 250 mls @ 166.667 mls/hr IVPB ED ONCE ONE Stop: 03/21/17 18:29 Last Admin: 03/21/17 17:11 Dose: 166.667 mls/hr Cefepime HCl 2 gm/ Sodium (Chloride) 50 mls @ 100 mls/hr IVPB Q24H [facility] Last Admin: 03/23/17 20:01 Dose: 100 mls/hr Vancomycin HCl 750 mg/ Sodium (Chloride) 250 mls @ 166.667 mls/hr IVPB Q8H [facility] Last Admin: 03/25/17 10:47 Dose: Not Given Non-Admin Reason: Patient Off Unit Gentamicin Sulfate 60 mg/ (Sodium Chloride) 101.5 mls @ 200 mls/hr IVPB Q12HR [facility] Last Admin: 03/27/17 08:43 Dose: Not Given Non-Admin Reason: Per Parameter Ketorolac Tromethamine (Toradol Inj*) 15 mg IV ONCE ONE Stop: 03/23/17 21:43 Last Admin: 03/23/17 23:34 Dose: Ondansetron HCl (Zofran Inj*) 4 mg IV ED ONCE ONE Stop: 03/21/17 15:14 Last Admin: 03/21/17 17:28 Dose: 4 mg Oxycodone/Acetaminophen (Percocet 5/325 Tab*) 1 tab PO Q8H PRN PRN Reason: PAIN Last Admin: 03/27/17 05:43 Dose: 1 tab Pharmacy Profile Note (Vancomycin Trough Check) 1 note FOLLOW UP 1630 ONE Stop: 03/22/17 16:31 Last Admin: 03/22/17 17:36 Dose: 1 note Pharmacy Profile Note (Vancomycin Trough Check) 1 note FOLLOW UP 0900 ONE Stop: 03/25/17 09:01 Last Admin: 03/25/17 12:10 Dose: 1 note Comments: done Pharmacy Profile Note (Vancomycin Trough Check) 1 note FOLLOW UP 1430 ONE Stop: 03/27/17 14:31 Last Admin: 03/27/17 15:38 Dose: 1 note Pharmacy Profile Note (Gentamicin Trough Level) 1 note FOLLOW UP 0830 ONE Stop: 03/27/17 08:31 Last Admin: 03/27/17 09:51 Dose: 1 note Assess/Plan/Problems-Billing . Assessment: 81 yo female with osteomyelitis/epidural abscess and BCX growing staph epi. s/p 2 neurosurgeries (03/24, 03/26). Intravascular Endocarditis by Modified [place] on vancomycin, gent and rifampin. - Patient Problems (1) Bacterial endocarditis Current Visit: Yes Status: Acute Code(s): I33.0 - ACUTE AND SUBACUTE INFECTIVE ENDOCARDITIS SNOMED Code(s): 850124104 Comment: Clinical endocarditis by modified [place] Criteria per ID. Will continue Vancomycin and Gentamicin per ID. Continue rifampin 600mg daily. Appreciate consult from ID. Gent levels. (2) Intractable low back pain Current Visit: Yes Status: Acute Priority: High Code(s): M54.5 - LOW BACK PAIN SNOMED Code(s): 68733354384096774 Comment: decrease dilaudid 1mg IV q3 to 0.5mg given concern for oversedation, fentanyl 25mcg daily, oxycodone 1mg po q4. baclofen 10mg TID prn was stopped after concern for some lip swelling after received first dose. Was stopped off gabapentin given potential sideffects (3) Diabetes type 2, controlled Current Visit: Yes Status: Acute Priority: High Code(s): E11.9 - TYPE 2 DIABETES MELLITUS WITHOUT COMPLICATIONS SNOMED Code(s): 48996455 Comment: Continue on SSI, hold metformin while in hospital. BS well controlled. Patient currently unable to eat due to sedation and post surgical state. Taper off prednisone after surgery after pain begins to subside. (4) Epidural abscess Current Visit: Yes Status: Acute Priority: High Code(s): G06.2 - EXTRADURAL AND SUBDURAL ABSCESS, UNSPECIFIED SNOMED Code(s): 64557910 Comment: Continue IV Vancomycin with target of 15-20 per ID. Gent, Rifampin (5) Hyperlipidemia Current Visit: Yes Status: Acute Code(s): E78.5 - HYPERLIPIDEMIA, UNSPECIFIED SNOMED Code(s): 90930589 Comment: Continue statin therapy Status and Disposition: Medicine inpatient. Possible d/c Friday to rehab? PT ordered Attending: Virgilio Arzate
[2017-03-28] MEDS: Gabapentin CAP(*) 100 MG PO SCH (20:24)
[2017-03-29] MEDS: HYDROmorphone INJ* 1 MG/ML CARPUJECT SYRINGE IV SLOW PU PRN ×4 (00:56→17:12)
[2017-03-29] MEDS: Vancomycin(*) 750 MG in NS 0.9% 250 ML* 250 ML IVPB SCH ×2 (03:03→15:22)
[2017-03-29] MEDS: oxyCODONE/Acetamin 5/325 MG* TAB PO PRN ×3 (03:31→15:26)
[2017-03-29] MEDS: fentaNYL Patch Check Q Shift 1 NOTE SCH ×2 (06:40→19:09)
[2017-03-29] MEDS: Insulin LISPRO* 1 UNITS UNIT SUBCUT SCH ×4 (08:01→21:09)
[2017-03-29] MEDS: Nystatin TOP POWDER* 15 GM BTL TOPICAL SCH ×3 (08:12→21:29)
[2017-03-29] MEDS: Furosemide TAB* 20 MG PO SCH (08:19)
[2017-03-29] MEDS: Gabapentin CAP(*) 100 MG PO SCH ×2 (08:20→21:07)
[2017-03-29] MEDS: Docusate CAP* 100 MG PO SCH ×2 (08:20→21:07)
[2017-03-29] MEDS: predniSONE TAB* 10 MG PO SCH (08:21)
[2017-03-29] MEDS: RiFAMPin CAP* 300 MG CAP PO SCH (08:21)
[2017-03-29] MEDS: Donepezil TAB* 5 MG PO SCH (08:21)
[2017-03-29] MEDS: Magnesium Oxide TAB* 400 MG PO SCH (08:23)
[2017-03-29] MEDS: Famotidine TAB* 20 MG PO SCH (08:23)
[2017-03-29] MEDS: Multivitamins/Minerals TAB PO SCH (08:24)
[2017-03-29] MEDS: Atorvastatin* 40 MG TAB PO SCH (08:24)
[2017-03-29] MEDS: Calcium/Vitamin D TAB 250/125* TAB PO SCH (08:24)
[2017-03-29 08:27] LABS: Hematocrit 25 % (35-47); Hemoglobin 8.2 g/dl (12.0-16.0); Mean Corpuscular HGB Conc 33 g/dl (31-36); Mean Corpuscular Hemoglobin 27 pg (27-31); Mean Corpuscular Volume 82 fL (80-97); Mean Platelet Volume 7 um3 (7.4-10.4); Red Blood Count 3.06 10^6/ul (4.0-5.4); Red Cell Distribution Width 18 % (10.5-15); White Blood Count 10.5 10^3/ul (3.5-10.8)
[2017-03-29 08:34] LABS: BUN/Creatinine Ratio 13.8 (8-20); Calcium 8.7 mg/dL (8.6-10.3); EGFR African American 112.2 (>60); EGFR Non-African American 87.3 (>60); Potassium 3.5 mmol/L (3.5-5.0)
[2017-03-29] MEDS ORDERED: Gentamicin Trough Level 1 NOTE MISC FOLLOW UP ONE (11:30)
[2017-03-29] MEDS ORDERED: Bisacodyl SUPP* 10 MG SUPP PR PRN (12:49)
[2017-03-29] MEDS ORDERED: Polyethylene Glycol 3350* 17 GM PACKET PO PRN (12:49)
[2017-03-29] MEDS: Senna TAB PO SCH (14:00)
--- NOTE | 2017-03-29 14:52 | PN ---
Subjective Date of Service: 03/29/17 Interval History: Still with significant right leg sciaticia like pain that per has not been well controlled since December. Pain clinic consulted, Dr. Price restarted gabapentin last night. No BM, hx of constipation. Family History: Unchanged from Admission Social History: Unchanged from Admission Past Medical History: Unchanged from Admission Objective Active Medications: Acetaminophen (Tylenol Tab*) 650 mg PO Q4H PRN PRN Reason: FEVER/PAIN Last Admin: 03/28/17 15:23 Dose: 650 mg Atorvastatin Calcium (Lipitor*) 40 mg PO DAILY [facility] Last Admin: 03/29/17 08:24 Dose: 40 mg Bisacodyl (Dulcolax Supp*) 10 mg PA DAILY PRN PRN Reason: CONSTIPATION Last Admin: 03/29/17 14:40 Dose: 10 mg Calcium/Vitamin D (Oscal D Tab 250/125*) 2 tab PO DAILY [facility] Last Admin: 03/29/17 08:24 Dose: 2 tab Dextrose (D50w Syringe 50 Ml*) 12.5 gm IV PUSH .FOR FS < 60 - SS PRN PRN Reason: FS < 60 Diphenhydramine HCl (Benadryl Iv*) 25 mg IV Q6H PRN PRN Reason: PRURITIS Last Admin: 03/21/17 17:45 Dose: 25 mg Docusate Sodium (Colace Cap*) 100 mg PO BID [facility] Last Admin: 03/29/17 08:20 Dose: 100 mg Donepezil HCl (Aricept Tab*) 5 mg PO DAILY [facility] Last Admin: 03/29/17 08:21 Dose: 5 mg Famotidine (Pepcid Tab*) 20 mg PO DAILY [facility] Last Admin: 03/29/17 08:23 Dose: 20 mg Fentanyl (Duragesic Patch 25 Mcg/Hr*) 25 mcg TRANSDERM Q72H [facility] Last Admin: 03/26/17 17:02 Dose: 25 mcg Furosemide (Lasix Tab*) 20 mg PO DAILY [facility] Last Admin: 03/29/17 08:19 Dose: 20 mg Gabapentin (Neurontin Cap(*)) 100 mg PO BID [facility] Last Admin: 03/29/17 08:20 Dose: 100 mg Hydromorphone HCl (Dilaudid Inj*) 0.5 mg IV SLOW PU Q4H PRN PRN Reason: PAIN Last Admin: 03/29/17 11:41 Dose: 0.5 mg Sodium Chloride (Ns 0.9% 1000 Ml*) 1,000 mls @ 75 mls/hr IV PER RATE [facility] Last Admin: 03/24/17 05:25 Dose: 75 mls/hr Lactated Ringer's (Lactated Ringers 1000 Ml Bag*) 1,000 mls @ 75 mls/hr IV .per rate [facility] Last Admin: 03/29/17 06:42 Dose: 75 mls/hr Vancomycin HCl 750 mg/ Sodium (Chloride) 250 mls @ 166.667 mls/hr IVPB Q12H [facility] Last Admin: 03/29/17 03:03 Dose: 166.667 mls/hr Gentamicin Sulfate 60 mg/ (Sodium Chloride) 101.5 mls @ 203 mls/hr IVPB Q24H [facility] Last Admin: 03/29/17 11:45 Dose: 203 mls/hr Insulin Human Lispro (Humalog*) 0 units SUBCUT ACHS [facility] PRN Reason: Protocol Last Admin: 03/29/17 12:48 Dose: 2 unit Magnesium Oxide (Magox 400 Tab*) 400 mg PO DAILY [facility] Last Admin: 03/29/17 08:23 Dose: 400 mg Multivitamins/Minerals (Theragran/Minerals Tab*) 1 tab PO DAILY [facility] Last Admin: 03/29/17 08:24 Dose: 1 tab Nystatin (Nystatin Top Powder*) 1 applic TOPICAL TID [facility] Last Admin: 03/29/17 14:40 Dose: 1 applic Oxycodone/Acetaminophen (Percocet 5/325 Tab*) 1 tab PO Q4H PRN PRN Reason: PAIN Last Admin: 03/29/17 08:20 Dose: 1 tab Pharmacy Consult (Vancomycin Per Pharmacy*) 1 note FOLLOW UP . PRN PRN Reason: PER PROTOCOL Pharmacy Consult (Gentamicin Adult Per Pharmacy) 1 note FOLLOW UP . PRN PRN Reason: PER PROTOCOL Pharmacy Profile Note (Fentanyl Patch Check Q Shift) 1 note N/A 0700,1900 [facility] Last Admin: 03/29/17 06:40 Dose: 1 note Polyethylene Glycol/Electrolytes (Miralax*) 17 gm PO DAILY PRN PRN Reason: CONSTIPATION Prednisone (Deltasone Tab*) 10 mg PO DAILY [facility] Last Admin: 03/29/17 08:21 Dose: 10 mg Rifampin (Rifampin Cap*) 600 mg PO DAILY [facility] Last Admin: 03/29/17 08:21 Dose: 600 mg Senna (Senokot Tab*) 2 tab PO DAILY [facility] Last Admin: 03/29/17 14:00 Dose: 2 tab Vital Signs 03/28/17 03/28/17 03/28/17 15:43 16:43 20:00 Temperature Pulse Rate Respiratory 20 12 17 Rate Blood Pressure (mmHg) O2 Sat by Pulse Oximetry 03/28/17 03/28/17 03/28/17 20:14 20:24 20:37 Temperature 97.9 F Pulse Rate 86 Respiratory 20 17 17 Rate Blood Pressure 153/61 (mmHg) O2 Sat by Pulse 99 Oximetry 03/28/17 03/28/17 03/28/17 21:37 22:24 23:58 Temperature 98.5 F Pulse Rate 79 Respiratory 16 16 18 Rate Blood Pressure 153/55 (mmHg) O2 Sat by Pulse 96 Oximetry 03/29/17 03/29/17 03/29/17 00:56 01:56 03:31 Temperature Pulse Rate Respiratory 17 16 16 Rate Blood Pressure (mmHg) O2 Sat by Pulse Oximetry 03/29/17 03/29/17 03/29/17 03:44 05:31 06:15 Temperature 98.6 F Pulse Rate 91 Respiratory 18 16 17 Rate Blood Pressure 146/59 (mmHg) O2 Sat by Pulse 96 Oximetry 03/29/17 03/29/17 03/29/17 07:15 07:42 08:00 Temperature 99.7 F Pulse Rate 87 Respiratory 16 12 16 Rate Blood Pressure 178/69 (mmHg) O2 Sat by Pulse 93 94 Oximetry 03/29/17 03/29/17 03/29/17 08:20 08:23 10:20 Temperature Pulse Rate Respiratory 18 18 Rate Blood Pressure (mmHg) O2 Sat by Pulse 94 Oximetry 03/29/17 03/29/17 03/29/17 11:33 11:41 12:41 Temperature 99.9 F Pulse Rate 89 Respiratory 12 18 16 Rate Blood Pressure 161/63 (mmHg) O2 Sat by Pulse 97 Oximetry Oxygen Devices in Use Now: Nasal Cannula Appearance: Alert, intermittent distress 2/2 right leg pain. Eyes: No Scleral Icterus, PERRLA Ears/Nose/Mouth/Throat: Mucous Membranes Moist Neck: NL Appearance and Movements; NL JVP Respiratory: Symmetrical Chest Expansion and Respiratory Effort, Clear to Auscultation Cardiovascular: NL Sounds; No Murmurs; No JVD, RRR Abdominal: NL Sounds; No Tenderness; No Distention, No Hepatosplenomegaly Extremities: No Edema, No Clubbing, Cyanosis Skin: No Rash or Ulcers Neurological: Alert and Oriented x 3 Result Diagrams: 03/29/17 08:04 03/29/17 08:04 Additional Lab and Data: . Laboratory Results - last 24 hr 03/28/17 03/28/17 03/28/17 12:22 16:45 17:31 WBC 10.2 RBC 2.96 L Hgb 8.1 L Hct 25 L MCV 83 MCH 27 MCHC 33 RDW 18 H Plt Count 229 MPV 8 Neut % (Auto) 76.3 Lymph % (Auto) 17.5 L [place] % (Auto) 5.1 Eos % (Auto) 0.6 Baso % (Auto) 0.5 Absolute Neuts (auto) 7.8 H Absolute Lymphs (auto) 1.8 Absolute Monos (auto) 0.5 Absolute Eos (auto) 0.1 Absolute Basos (auto) 0 Absolute Nucleated RBC 0 Nucleated RBC % 0 Sodium Potassium Chloride Carbon Dioxide Anion Gap BUN Creatinine Est GFR ( Amer) Est GFR (Non-Af Amer) BUN/Creatinine Ratio Glucose POC Glucose (mg/dL) 248 H Calcium Urine Color [place] Urine Appearance Clear Urine pH 7.0 Ur Specific [place] 1.005 L Urine Protein Negative Urine Ketones Negative Urine Blood Negative Urine Nitrate Negative Urine Bilirubin Negative Urine Urobilinogen Negative Ur Leukocyte Esterase Negative Urine Glucose 1+(50 mg/dl) H Gentamicin Trough 03/28/17 03/29/17 03/29/17 20:28 07:59 08:04 WBC RBC Hgb Hct MCV MCH MCHC RDW Plt Count MPV Neut % (Auto) Lymph % (Auto) Edgar % (Auto) Eos % (Auto) Baso % (Auto) Absolute Neuts (auto) Absolute Lymphs (auto) Absolute Monos (auto) Absolute Eos (auto) Absolute Basos (auto) Absolute Nucleated RBC Nucleated RBC % Sodium 140 Potassium 3.5 Chloride 102 Carbon Dioxide 30 Anion Gap 8 BUN 9 Creatinine 0.65 Est GFR ( Amer) 112.2 Est GFR (Non-Af Amer) 87.3 BUN/Creatinine Ratio 13.8 Glucose 104 H POC Glucose (mg/dL) 173 H 120 H Calcium 8.7 Urine Color Urine Appearance Urine pH Ur Specific [place] Urine Protein Urine Ketones Urine Blood Urine Nitrate Urine Bilirubin Urine Urobilinogen Ur Leukocyte Esterase Urine Glucose Gentamicin Trough 03/29/17 03/29/17 03/29/17 08:04 11:38 12:11 WBC 10.5 RBC 3.06 L Hgb 8.2 L Hct 25 L MCV 82 MCH 27 MCHC 33 RDW 18 H Plt Count 233 MPV 7 L Neut % (Auto) 69.5 Lymph % (Auto) 23.8 L Edgar % (Auto) 5.3 Eos % (Auto) 0.6 Baso % (Auto) 0.8 Absolute Neuts (auto) 7.3 Absolute Lymphs (auto) 2.5 Absolute Monos (auto) 0.6 Absolute Eos (auto) 0.1 Absolute Basos (auto) 0.1 Absolute Nucleated RBC 0 Nucleated RBC % 0 Sodium Potassium Chloride Carbon Dioxide Anion Gap BUN Creatinine Est GFR ( Amer) Est GFR (Non-Af Amer) BUN/Creatinine Ratio Glucose POC Glucose (mg/dL) 236 H Calcium Urine Color Urine Appearance Urine pH Ur Specific [place] Urine Protein Urine Ketones Urine Blood Urine Nitrate Urine Bilirubin Urine Urobilinogen Ur Leukocyte Esterase Urine Glucose Gentamicin Trough 0.5 Microbiology and Other Data: Microbiology 03/26/17 06:19 Aerobic Blood Culture - Preliminary Blood Venous No Growth Day 3 Anaerobic Blood Culture - Preliminary No Growth Day 3 Blood Culture - Final 03/26/17 06:14 Aerobic Blood Culture - Preliminary Blood Venous No Growth Day 3 Anaerobic Blood Culture - Preliminary No Growth Day 3 Blood Culture - Final Diagnostic Imaging: Assess/Plan/Problems-Billing . Assessment: 81 yo female with osteomyelitis/epidural abscess and BCX growing staph epi. s/p 2 neurosurgeries (03/24, 03/26). Intravascular Endocarditis by Modified [place] on vancomycin, gent and rifampin. Pain still not well controlled, then intermittent oversedation; Pain management consulted. - Patient Problems (1) Bacterial endocarditis Current Visit: Yes Status: Acute Code(s): I33.0 - ACUTE AND SUBACUTE INFECTIVE ENDOCARDITIS SNOMED Code(s): 548674657 Comment: Clinical endocarditis by modified [place] Criteria per ID. Will continue Vancomycin and Gentamicin per ID. Continue rifampin 600mg daily. Appreciate consult from ID. Gent levels regularly (will get 03/30). (2) Intractable low back pain Current Visit: Yes Status: Acute Priority: High Code(s): M54.5 - LOW BACK PAIN SNOMED Code(s): 80956833399495228 Comment: continue dilaudid 1mg IV q3 to 0.5mg given concern for oversedation , fentanyl 25mcg daily, oxycodone 1mg po q4. baclofen 10mg TID prn was stopped after concern for some lip swelling after received first dose. Was stopped off gabapentin given potential sideffects concern by daughter and then restarted last night by Dr. Price. Consider titration up. Also on prednisone 10mg daily. (3) Diabetes type 2, controlled Current Visit: Yes Status: Acute Priority: High Code(s): E11.9 - TYPE 2 DIABETES MELLITUS WITHOUT COMPLICATIONS SNOMED Code(s): 44861451 Comment: Continue on SSI, hold metformin while in hospital. BS well controlled. Patient currently unable to eat due to sedation and post surgical state. Taper off prednisone after surgery after pain begins to subside. (4) Epidural abscess Current Visit: Yes Status: Acute Priority: High Code(s): G06.2 - EXTRADURAL AND SUBDURAL ABSCESS, UNSPECIFIED SNOMED Code(s): 89223231 Comment: Continue IV Vancomycin with target of 15-20 per ID. Gent, Rifampin (5) Hyperlipidemia Current Visit: Yes Status: Acute Code(s): E78.5 - HYPERLIPIDEMIA, UNSPECIFIED SNOMED Code(s): 91384546 Comment: Continue statin therapy Status and Disposition: Medicine inpatient. Possible d/c Friday to rehab? PT ordered (pending) Attending: Virgilio Arzate
[2017-03-29] MEDS ORDERED: Pregabalin CAP(*) 50 MG PO SCH (15:00)
[2017-03-29] MEDS ORDERED: Gabapentin CAP(*) 100 MG PO ONE (17:07)
[2017-03-29] MEDS: fentaNYL PATCH 25 MCG/HR TRANSDERM SCH (17:48)
--- NOTE | 2017-03-29 20:58 | CONS ---
INPATIENT PAIN CONSULTATION: DATE OF CONSULT: 03/29/17 REQUESTING PHYSICIAN: Dr. Virgilio Arzate. REASON FOR REFERRING: Excruciating pain in back, down both legs. HISTORY OF PRESENT ILLNESS: Faith Barclay is an 81-year-old female. She has a medical history significant for diabetes as well as an aortic valve replacement which was done in June of this year. The patient has had excruciating back pain radiating down her right leg since about 01/13/17. It has really been pain more so in the right leg. An MRI was done 03/10/17. She was sent to the Pain Clinic for [id number] spinal canal stenosis and right neuroforaminal stenosis. When she was seen in the Pain Clinic 03/21/17, she could barely walk and the pain medications were not helping. She was resuming a course of oral steroids at that time. She was on a fentanyl patch 25 mcg an hour as well as Percocet 5/325 one tablet every 8 hours. She was seen in the Pain Clinic by Dr. Esquivel. The MRI was further reviewed and it was felt that there was an epidural collection that might represent an abscess. The patient was sent from the Pain Clinic to the emergency room for possible admission. She was admitted to the hospital. She had a consultation with Dr. Thom Benedict. She was started on IV antibiotics. She was also taken to the operating room on 03/24/17 and underwent a lumbar laminectomy at L4-5 with excision of the herniated disk at L4-5. As mentioned, the patient was seen by Dr. Thom Benedict. The patient had blood cultures on admission, 10/01 grew out Staph epidermidis. The patient has been on IV vancomycin as well as rifampin. She has also continued her prednisone. I am asked to see her for her extreme leg pain and back pain. PAST MEDICAL HISTORY: Significant for aortic valve replacement as mentioned previously. She has a history of diabetes, hypertension, breast cancer. CURRENT MEDICATIONS: Include: 1. Aricept. 2. She is on a fentanyl patch 25 mcg. 3. Dilaudid IV. 4. She is on lispro insulin. 5. Percocet. 6. Vancomycin. 7. Gentamicin. 8. Rifampin. 9. Prednisone. ALLERGIES: No known drug allergies. SOCIAL HISTORY: She lives with her . She is a nonsmoker, nondrinker. She has dementia. PHYSICAL EXAM: The patient's temperature is 97.9, blood pressure is 143/56, pulse 86, respirations 20. HEENT: Extraocular movements were intact. The patient is screaming out in pain and is obviously uncomfortable. Her lungs sounded clear to auscultation bilaterally. Heart sounds were regular. Abdomen : Soft and nontender. Her back was examined. Slight scoliosis was noted. Neurologic: She is disoriented. She is screaming out in pain. She is easily redirectable, however. She is able to move all 4 extremities. ASSESSMENT: Right leg pain secondary to presumed epidural abscess and herniated disk. The patient has continued to have excruciating pain. PLAN: We are going to try Neurontin and increase gradually to see if that might help her pain. In addition, the patient was tried on baclofen, but this did not seem to help her. Baclofen was discontinued. She is already getting a fentanyl patch as well as Dilaudid IV and Percocet. It seems opioids are not effective at alleviating her pain. There is some risk of going up on opioids too fast as it might lead to oversedation. We are going to increase her Neurontin and follow along with you. We will continue her opioids as they are now. We may also add a small amount of Cymbalta to see if this might help her. With her dementia, this is complicated also. Thank you for the consult. [id number]/JACIEL #: [id number] JACOB
[2017-03-30] MEDS: oxyCODONE/Acetamin 5/325 MG* TAB PO PRN ×4 (01:43→19:54)
[2017-03-30] MEDS: Vancomycin(*) 750 MG in NS 0.9% 250 ML* 250 ML IVPB SCH ×2 (03:23→15:08)
[2017-03-30] MEDS: fentaNYL Patch Check Q Shift 1 NOTE SCH ×2 (06:54→19:02)
[2017-03-30 07:30] LABS: Hematocrit 25 % (35-47); Hemoglobin 8.2 g/dl (12.0-16.0); Mean Corpuscular HGB Conc 33 g/dl (31-36); Mean Corpuscular Hemoglobin 27 pg (27-31); Mean Corpuscular Volume 81 fL (80-97); Mean Platelet Volume 7 um3 (7.4-10.4); Red Blood Count 3.06 10^6/ul (4.0-5.4); Red Cell Distribution Width 18 % (10.5-15); White Blood Count 9.6 10^3/ul (3.5-10.8)
[2017-03-30] MEDS: HYDROmorphone INJ* 1 MG/ML CARPUJECT SYRINGE IV SLOW PU PRN ×2 (08:02→18:35)
[2017-03-30] MEDS: Insulin LISPRO* 1 UNITS UNIT SUBCUT SCH ×4 (08:06→20:55)
[2017-03-30] MEDS: Gabapentin CAP(*) 100 MG PO SCH ×2 (09:24→13:53)
[2017-03-30] MEDS: Furosemide TAB* 20 MG PO SCH (09:25)
[2017-03-30] MEDS: Donepezil TAB* 5 MG PO SCH (09:25)
[2017-03-30] MEDS: predniSONE TAB* 10 MG PO SCH (09:25)
[2017-03-30] MEDS: Famotidine TAB* 20 MG PO SCH (09:25)
[2017-03-30] MEDS: Magnesium Oxide TAB* 400 MG PO SCH (09:25)
[2017-03-30] MEDS: RiFAMPin CAP* 300 MG CAP PO SCH (09:28)
[2017-03-30] MEDS: Multivitamins/Minerals TAB PO SCH (09:28)
[2017-03-30] MEDS: Atorvastatin* 40 MG TAB PO SCH (09:28)
[2017-03-30] MEDS: DULoxetine DR CAP* 20 MG CAP.DR PO SCH (09:28)
[2017-03-30] MEDS: Calcium/Vitamin D TAB 250/125* TAB PO SCH (09:28)
[2017-03-30] MEDS: Senna TAB PO SCH (09:29)
[2017-03-30] MEDS: Docusate CAP* 100 MG PO SCH ×2 (09:29→20:55)
[2017-03-30] MEDS: Nystatin TOP POWDER* 15 GM BTL TOPICAL SCH ×3 (09:32→20:58)
--- NOTE | 2017-03-30 13:53 | PN ---
Progress Note - Progress Note Date of Service: 03/30/17 SOAP: Subjective: []POD # 4 Up in chair Back pain better but still has rt leg pain Crainage decreased Objective: []Wound looks good Drain removed Neuro intact Assessment: []Making slow progress Plan: []Will likely need swing bed placement
--- NOTE | 2017-03-30 15:36 | PN ---
Subjective Date of Service: 03/30/17 Interval History: gabapentin uptitrated and cymbalta added by Dr. Price. Pt with right leg pain , occasionally intolerable per family. Worked with PT yesterday but very painful. Family History: Unchanged from Admission Social History: Unchanged from Admission Past Medical History: Unchanged from Admission Objective Active Medications: Acetaminophen (Tylenol Tab*) 650 mg PO Q4H PRN PRN Reason: FEVER/PAIN Last Admin: 03/28/17 15:23 Dose: 650 mg Atorvastatin Calcium (Lipitor*) 40 mg PO DAILY [facility] Last Admin: 03/30/17 09:28 Dose: 40 mg Bisacodyl (Dulcolax Supp*) 10 mg AL DAILY PRN PRN Reason: CONSTIPATION Last Admin: 03/29/17 14:40 Dose: 10 mg Calcium/Vitamin D (Oscal D Tab 250/125*) 2 tab PO DAILY [facility] Last Admin: 03/30/17 09:28 Dose: 2 tab Dextrose (D50w Syringe 50 Ml*) 12.5 gm IV PUSH .FOR FS < 60 - SS PRN PRN Reason: FS < 60 Diphenhydramine HCl (Benadryl Iv*) 25 mg IV Q6H PRN PRN Reason: PRURITIS Last Admin: 03/21/17 17:45 Dose: 25 mg Docusate Sodium (Colace Cap*) 100 mg PO BID [facility] Last Admin: 03/30/17 09:29 Dose: 100 mg Donepezil HCl (Aricept Tab*) 5 mg PO DAILY [facility] Last Admin: 03/30/17 09:25 Dose: 5 mg Duloxetine HCl (Cymbalta Cap*) 20 mg PO DAILY [facility] Last Admin: 03/30/17 09:28 Dose: 20 mg Famotidine (Pepcid Tab*) 20 mg PO DAILY [facility] Last Admin: 03/30/17 09:25 Dose: 20 mg Fentanyl (Duragesic Patch 25 Mcg/Hr*) 25 mcg TRANSDERM Q72H [facility] Last Admin: 03/29/17 17:48 Dose: 25 mcg Furosemide (Lasix Tab*) 20 mg PO DAILY [facility] Last Admin: 03/30/17 09:25 Dose: 20 mg Gabapentin (Neurontin Cap(*)) 300 mg PO TID [facility] Hydromorphone HCl (Dilaudid Inj*) 0.5 mg IV SLOW PU Q4H PRN PRN Reason: PAIN Last Admin: 03/30/17 08:02 Dose: 0.5 mg Sodium Chloride (Ns 0.9% 1000 Ml*) 1,000 mls @ 75 mls/hr IV PER RATE [facility] Last Admin: 03/24/17 05:25 Dose: 75 mls/hr Lactated Ringer's (Lactated Ringers 1000 Ml Bag*) 1,000 mls @ 75 mls/hr IV .per rate [facility] Last Admin: 03/30/17 13:43 Dose: 75 mls/hr Vancomycin HCl 750 mg/ Sodium (Chloride) 250 mls @ 166.667 mls/hr IVPB Q12H [facility] Last Admin: 03/30/17 15:08 Dose: 166.667 mls/hr Gentamicin Sulfate 50 mg/ (Sodium Chloride) 101.25 mls @ 202.5 mls/hr IVPB 1200 [facility] Last Admin: 03/30/17 12:28 Dose: 202.5 mls/hr Insulin Human Lispro (Humalog*) 0 units SUBCUT ACHS [facility] PRN Reason: Protocol Last Admin: 03/30/17 12:34 Dose: 2 unit Magnesium Oxide (Magox 400 Tab*) 400 mg PO DAILY [facility] Last Admin: 03/30/17 09:25 Dose: 400 mg Multivitamins/Minerals (Theragran/Minerals Tab*) 1 tab PO DAILY [facility] Last Admin: 03/30/17 09:28 Dose: 1 tab Nystatin (Nystatin Top Powder*) 1 applic TOPICAL TID [facility] Last Admin: 03/30/17 13:53 Dose: 1 applic Oxycodone/Acetaminophen (Percocet 5/325 Tab*) 1 tab PO Q4H PRN PRN Reason: PAIN Last Admin: 03/30/17 11:26 Dose: 1 tab Pharmacy Consult (Vancomycin Per Pharmacy*) 1 note FOLLOW UP . PRN PRN Reason: PER PROTOCOL Pharmacy Consult (Gentamicin Adult Per Pharmacy) 1 note FOLLOW UP . PRN PRN Reason: PER PROTOCOL Pharmacy Profile Note (Fentanyl Patch Check Q Shift) 1 note N/A 0700,1900 [facility] Last Admin: 03/30/17 06:54 Dose: 1 note Polyethylene Glycol/Electrolytes (Miralax*) 17 gm PO DAILY PRN PRN Reason: CONSTIPATION Last Admin: 03/30/17 09:23 Dose: 17 gm Prednisone (Deltasone Tab*) 10 mg PO DAILY [facility] Last Admin: 03/30/17 09:25 Dose: 10 mg Rifampin (Rifampin Cap*) 600 mg PO DAILY [facility] Last Admin: 03/30/17 09:28 Dose: 600 mg Senna (Senokot Tab*) 2 tab PO DAILY [facility] Last Admin: 03/30/17 09:29 Dose: 2 tab Vital Signs 03/29/17 03/29/17 03/29/17 16:00 17:12 17:26 Temperature Pulse Rate Respiratory 20 18 Rate Blood Pressure (mmHg) O2 Sat by Pulse 98 Oximetry 03/29/17 03/29/17 03/29/17 17:40 17:48 18:12 Temperature Pulse Rate Respiratory 18 18 18 Rate Blood Pressure (mmHg) O2 Sat by Pulse Oximetry 03/29/17 03/29/17 03/29/17 19:40 20:15 21:07 Temperature Pulse Rate Respiratory 18 18 18 Rate Blood Pressure (mmHg) O2 Sat by Pulse Oximetry 03/29/17 03/29/17 03/30/17 21:39 23:07 00:00 Temperature 98.1 F Pulse Rate 87 Respiratory 18 16 Rate Blood Pressure 163/66 (mmHg) O2 Sat by Pulse 98 97 Oximetry 03/30/17 03/30/17 03/30/17 00:01 01:43 03:43 Temperature 99.3 F Pulse Rate 88 Respiratory 18 16 16 Rate Blood Pressure 154/50 (mmHg) O2 Sat by Pulse 97 Oximetry 03/30/17 03/30/17 03/30/17 03:48 07:18 08:00 Temperature 99.6 F 98.4 F Pulse Rate 84 87 Respiratory 20 17 20 Rate Blood Pressure 140/41 153/48 (mmHg) O2 Sat by Pulse 96 97 97 Oximetry 03/30/17 03/30/17 03/30/17 08:02 09:02 09:24 Temperature Pulse Rate Respiratory 18 18 18 Rate Blood Pressure (mmHg) O2 Sat by Pulse Oximetry 03/30/17 03/30/17 03/30/17 11:06 11:24 11:26 Temperature 98.4 F Pulse Rate 88 Respiratory 17 20 20 Rate Blood Pressure 130/48 (mmHg) O2 Sat by Pulse 100 Oximetry 03/30/17 03/30/17 13:26 13:53 Temperature Pulse Rate Respiratory 18 18 Rate Blood Pressure (mmHg) O2 Sat by Pulse Oximetry Oxygen Devices in Use Now: Nasal Cannula Appearance: resting in bed in no acute distress. Eyes: No Scleral Icterus, PERRLA Ears/Nose/Mouth/Throat: NL Teeth, Lips, Gums Neck: NL Appearance and Movements; NL JVP Respiratory: Symmetrical Chest Expansion and Respiratory Effort, Clear to Auscultation Cardiovascular: NL Sounds; No Murmurs; No JVD, RRR Abdominal: NL Sounds; No Tenderness; No Distention Extremities: - - right leg/sciatica like pain limits much movement Skin: No Rash or Ulcers Neurological: Alert and Oriented x 3 Result Diagrams: 03/30/17 07:24 03/29/17 08:04 Additional Lab and Data: . Laboratory Results - last 24 hr 03/29/17 03/29/17 03/30/17 17:37 21:00 07:24 WBC 9.6 RBC 3.06 L Hgb 8.2 L Hct 25 L MCV 81 MCH 27 MCHC 33 RDW 18 H Plt Count 225 MPV 7 L Neut % (Auto) 68.1 Lymph % (Auto) 24.8 L [place] % (Auto) 5.2 Eos % (Auto) 1.0 Baso % (Auto) 0.9 Absolute Neuts (auto) 6.6 Absolute Lymphs (auto) 2.4 Absolute Monos (auto) 0.5 Absolute Eos (auto) 0.1 Absolute Basos (auto) 0.1 Absolute Nucleated RBC 0 Nucleated RBC % 0 POC Glucose (mg/dL) 233 H 232 H 03/30/17 08:05 WBC RBC Hgb Hct MCV MCH MCHC RDW Plt Count MPV Neut % (Auto) Lymph % (Auto) [place] % (Auto) Eos % (Auto) Baso % (Auto) Absolute Neuts (auto) Absolute Lymphs (auto) Absolute Monos (auto) Absolute Eos (auto) Absolute Basos (auto) Absolute Nucleated RBC Nucleated RBC % POC Glucose (mg/dL) 143 H Microbiology and Other Data: Microbiology 03/26/17 06:19 Aerobic Blood Culture - Preliminary Blood Venous No Growth Day 4 Anaerobic Blood Culture - Preliminary No Growth Day 4 Blood Culture - Final 03/26/17 06:14 Aerobic Blood Culture - Preliminary Blood Venous No Growth Day 4 Anaerobic Blood Culture - Preliminary No Growth Day 4 Blood Culture - Final Diagnostic Imaging: Assess/Plan/Problems-Billing . Assessment: 81 yo female with osteomyelitis/epidural abscess and BCX growing staph epi. s/p 2 neurosurgeries (03/24, 03/26). Intravascular Endocarditis by Modified [place] on vancomycin, gent and rifampin. Sciatica Pain slightly? better controlled but still significant. - Patient Problems (1) Bacterial endocarditis Current Visit: Yes Status: Acute Code(s): I33.0 - ACUTE AND SUBACUTE INFECTIVE ENDOCARDITIS SNOMED Code(s): 254400060 Comment: Clinical endocarditis by modified [place] Criteria per ID. Will continue Vancomycin and Gentamicin per ID. Continue rifampin 600mg daily. Appreciate consult from ID. Gent levels regularly (next 04/01). (2) Intractable low back pain Current Visit: Yes Status: Acute Priority: High Code(s): M54.5 - LOW BACK PAIN SNOMED Code(s): 92454296601280061 Comment: continue dilaudid 1mg IV q3 to 0.5mg given concern for oversedation , fentanyl 25mcg daily, oxycodone 1mg po q4. baclofen 10mg TID prn was stopped after concern for some lip swelling after received first dose. Gabapentin uptitrating and addition of cymbalta 20mg daily by Dr. Price. prednisone 10mg daily. (3) Diabetes type 2, controlled Current Visit: Yes Status: Acute Priority: High Code(s): E11.9 - TYPE 2 DIABETES MELLITUS WITHOUT COMPLICATIONS SNOMED Code(s): 56661010 Comment: Continue on SSI, hold metformin while in hospital. BS well controlled. Patient currently unable to eat due to sedation and post surgical state. Taper off prednisone after surgery after pain begins to subside. (4) Epidural abscess Current Visit: Yes Status: Acute Priority: High Code(s): G06.2 - EXTRADURAL AND SUBDURAL ABSCESS, UNSPECIFIED SNOMED Code(s): 29133593 Comment: Continue IV Vancomycin (day 10) with target of 15-20 per ID. Gent (day 12/11), Rifampin (5) Hyperlipidemia Current Visit: Yes Status: Acute Code(s): E78.5 - HYPERLIPIDEMIA, UNSPECIFIED SNOMED Code(s): 52961827 Comment: Continue statin therapy Status and Disposition: Medicine inpatient. Possible d/c Friday to rehab? vs ?swing status? Attending: Virgilio Arzate
[2017-03-30] MEDS ORDERED: fentaNYL PATCH 25 MCG/HR TRANSDERM SCH (18:00)
[2017-03-30] MEDS: Gabapentin CAP(*) 300 MG PO SCH (20:55)
[2017-03-30] MEDS ORDERED: LORazepam TAB(*) 0.5 MG PO ONE (22:34)
[2017-03-30] MEDS ORDERED: LORazepam TAB(*) 0.5 MG ONE (22:37)
[2017-03-31] MEDS: HYDROmorphone INJ* 1 MG/ML CARPUJECT SYRINGE IV SLOW PU PRN ×2 (00:31→05:15)
[2017-03-31] MEDS: Vancomycin(*) 750 MG in NS 0.9% 250 ML* 250 ML IVPB SCH ×2 (02:43→15:17)
[2017-03-31] MEDS: oxyCODONE/Acetamin 5/325 MG* TAB PO PRN ×4 (02:47→20:48)
[2017-03-31] MEDS: fentaNYL Patch Check Q Shift 1 NOTE SCH ×2 (07:04→19:21)
--- NOTE | 2017-03-31 07:45 | PN ---
Progress Note - Progress Note Date of Service: 03/31/17 SOAP: Subjective: [S/p decompression and epidural abscess drainage 03/24 and 03/26. Continues to complain of severe right lower extremity pain and spasms. Pain is worse with movement, getting out of bed and working with PT. Pain is improved with laying in bed, laying on right side is ok. ] Objective: [General: Alert but unable to answer questions well secondary to focus on pain. Vital Signs: Temp Pulse Resp BP Pulse Ox 98.2 F 92 16 178/69 98 03/31/17 04:01 03/31/17 04:01 03/31/17 06:15 03/31/17 04:01 03/31/17 04:01 Neuro: Motor and sensory intact. Incision: Intact and without swelling. ] Assessment: [Significant persistent pain post-operatively in RLE. Pain management consulted yesterday and adjusted medications. ] Plan: [1. This patient will likely require rehab. 2. Continue PT.]
[2017-03-31] MEDS: Gabapentin CAP(*) 300 MG PO SCH ×3 (10:14→20:47)
[2017-03-31] MEDS: DULoxetine DR CAP* 20 MG CAP.DR PO SCH (10:14)
[2017-03-31] MEDS: Famotidine TAB* 20 MG PO SCH (10:14)
[2017-03-31] MEDS: Docusate CAP* 100 MG PO SCH ×2 (10:15→20:46)
[2017-03-31] MEDS: Donepezil TAB* 5 MG PO SCH (10:15)
[2017-03-31] MEDS: predniSONE TAB* 10 MG PO SCH (10:15)
[2017-03-31] MEDS: Magnesium Oxide TAB* 400 MG PO SCH (10:16)
[2017-03-31] MEDS: Senna TAB PO SCH (10:16)
[2017-03-31] MEDS: Atorvastatin* 40 MG TAB PO SCH (10:17)
[2017-03-31] MEDS: Multivitamins/Minerals TAB PO SCH (10:17)
[2017-03-31] MEDS: Furosemide TAB* 20 MG PO SCH (10:17)
[2017-03-31] MEDS: RiFAMPin CAP* 300 MG CAP PO SCH (10:18)
[2017-03-31] MEDS: Calcium/Vitamin D TAB 250/125* TAB PO SCH (10:18)
[2017-03-31] MEDS: Nystatin TOP POWDER* 15 GM BTL TOPICAL SCH ×3 (10:20→22:07)
[2017-03-31] MEDS: Insulin LISPRO* 1 UNITS UNIT SUBCUT SCH ×4 (10:20→20:48)
[2017-03-31 12:06] LABS: Hematocrit 24 % (35-47); Hemoglobin 8.1 g/dl (12.0-16.0); Mean Corpuscular HGB Conc 33 g/dl (31-36); Mean Corpuscular Hemoglobin 27 pg (27-31); Mean Corpuscular Volume 82 fL (80-97); Mean Platelet Volume 7 um3 (7.4-10.4); Red Blood Count 2.97 10^6/ul (4.0-5.4); Red Cell Distribution Width 18 % (10.5-15); White Blood Count 9.6 10^3/ul (3.5-10.8)
--- NOTE | 2017-03-31 12:09 | PN ---
Subjective Date of Service: 03/31/17 Interval History: Patient seen and examined at bedside. Denies fever, chills, chest discomfort, shortness of breath, N/V/D. Continues to have back pain, but states this is improving. Family History: Unchanged from Admission Social History: Unchanged from Admission Past Medical History: Unchanged from Admission Objective Active Medications: Acetaminophen (Tylenol Tab*) 650 mg PO Q4H PRN Reason: FEVER/PAIN Atorvastatin Calcium (Lipitor*) 40 mg PO DAILY [facility] Bisacodyl (Dulcolax Supp*) 10 mg [place] DAILY PRN Reason: CONSTIPATION Calcium/Vitamin D (Oscal D Tab 250/125*) 2 tab PO DAILY [facility] Dextrose (D50w Syringe 50 Ml*) 12.5 gm IV PUSH .FOR FS < 60 - SS PRN Reason: FS < 60 Diphenhydramine HCl (Benadryl Iv*) 25 mg IV Q6H PRN Reason: PRURITIS Docusate Sodium (Colace Cap*) 100 mg PO BID [facility] Donepezil HCl (Aricept Tab*) 5 mg PO DAILY [facility] Duloxetine HCl (Cymbalta Cap*) 20 mg PO DAILY [facility] Famotidine (Pepcid Tab*) 20 mg PO DAILY [facility] Fentanyl (Duragesic Patch 25 Mcg/Hr*) 25 mcg TRANSDERM Q72HR [facility] Furosemide (Lasix Tab*) 20 mg PO DAILY [facility] Gabapentin (Neurontin Cap(*)) 300 mg PO TID [facility] Hydromorphone HCl (Dilaudid Inj*) 0.5 mg IV SLOW PU Q4H PRN Reason: PAIN Sodium Chloride (Ns 0.9% 1000 Ml*) 1,000 mls @ 75 mls/hr IV PER RATE [facility] Lactated Ringer's (Lactated Ringers 1000 Ml Bag*) 1,000 mls @ 75 mls/hr IV .per rate [facility] Vancomycin HCl 750 mg/ Sodium (Chloride) 250 mls @ 166.667 mls/hr IVPB Q12H [facility] Gentamicin Sulfate 50 mg/ (Sodium Chloride) 101.25 mls @ 202.5 mls/hr IVPB 1200 [facility] Insulin Human Lispro (Humalog*) 0 units SUBCUT ACHS [facility] Magnesium Oxide (Magox 400 Tab*) 400 mg PO DAILY [facility] Multivitamins/Minerals (Theragran/Minerals Tab*) 1 tab PO DAILY [facility] Nystatin (Nystatin Top Powder*) 1 applic TOPICAL TID [facility] Oxycodone/Acetaminophen (Percocet 5/325 Tab*) 1 tab PO Q4H PRN Reason: PAIN Pharmacy Consult (Vancomycin Per Pharmacy*) 1 note FOLLOW UP . PRN Reason: PER PROTOCOL Pharmacy Consult (Gentamicin Adult Per Pharmacy) 1 note FOLLOW UP . PRN Reason : PER PROTOCOL Pharmacy Profile Note (Fentanyl Patch Check Q Shift) 1 note N/A 0700,1900 [facility] Polyethylene Glycol/Electrolytes (Miralax*) 17 gm PO DAILY PRN Reason: CONSTIPATION Prednisone (Deltasone Tab*) 10 mg PO DAILY [facility] Rifampin (Rifampin Cap*) 600 mg PO DAILY [facility] Senna (Senokot Tab*) 2 tab PO DAILY [facility] Vital Signs 03/30/17 03/30/17 03/30/17 13:26 13:53 15:37 Temperature 98.6 F Pulse Rate 91 Respiratory 18 18 16 Rate Blood Pressure 133/49 (mmHg) O2 Sat by Pulse 97 Oximetry 03/30/17 03/30/17 03/30/17 15:40 15:53 16:00 Temperature Pulse Rate Respiratory 18 18 Rate Blood Pressure (mmHg) O2 Sat by Pulse 97 Oximetry 03/30/17 03/30/17 03/30/17 17:40 18:35 19:53 Temperature 98.6 F Pulse Rate 93 Respiratory 18 20 18 Rate Blood Pressure 138/68 (mmHg) O2 Sat by Pulse 99 Oximetry 03/30/17 03/30/17 03/30/17 21:54 22:40 23:16 Temperature 98.1 F Pulse Rate 91 Respiratory 18 20 20 Rate Blood Pressure 179/70 (mmHg) O2 Sat by Pulse 100 Oximetry 03/31/17 03/31/17 03/31/17 02:47 04:01 04:47 Temperature 98.2 F Pulse Rate 92 Respiratory 18 20 20 Rate Blood Pressure 178/69 (mmHg) O2 Sat by Pulse 98 Oximetry 03/31/17 03/31/17 03/31/17 05:15 06:15 07:22 Temperature 98.0 F Pulse Rate 76 Respiratory 18 16 16 Rate Blood Pressure 153/56 (mmHg) O2 Sat by Pulse 96 Oximetry 03/31/17 03/31/17 03/31/17 07:46 10:14 10:20 Temperature Pulse Rate Respiratory 16 16 18 Rate Blood Pressure (mmHg) O2 Sat by Pulse 100 Oximetry 03/31/17 11:23 Temperature 99.8 F Pulse Rate 83 Respiratory 16 Rate Blood Pressure 146/58 (mmHg) O2 Sat by Pulse 100 Oximetry Oxygen Devices in Use Now: Nasal Cannula Appearance: NAD, laying in bed Ears/Nose/Mouth/Throat: Mucous Membranes Moist Respiratory: Symmetrical Chest Expansion and Respiratory Effort, Clear to Auscultation Cardiovascular: NL Sounds; No Murmurs; No JVD, RRR Abdominal: NL Sounds; No Tenderness; No Distention Extremities: No Edema Skin: No Rash or Ulcers Neurological: Alert and Oriented x 3, NL Muscle Strength and Tone Nutrition: Taking PO's Result Diagrams: 03/31/17 11:50 03/29/17 08:04 Microbiology and Other Data: Microbiology 03/26/17 06:19 Aerobic Blood Culture - Preliminary Blood Venous No Growth Day 4 Anaerobic Blood Culture - Preliminary No Growth Day 4 Blood Culture - Final 03/26/17 06:14 Aerobic Blood Culture - Preliminary Blood Venous No Growth Day 4 Anaerobic Blood Culture - Preliminary No Growth Day 4 Blood Culture - Final Assess/Plan/Problems-Billing . Assessment: Ms. Barclay is an 81 yo female with osteomyelitis/epidural abscess and BCX growing staph epi. s/p 2 neurosurgeries (03/24, 03/26). 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 - Patient Problems (1) Bacterial endocarditis Code(s): I33.0 - ACUTE AND SUBACUTE INFECTIVE ENDOCARDITIS SNOMED Code(s): 528360132 Comment: - Bacteremia - BC with Staph epidermidis, BC now with no growth day 5. - No signs of sepsis noted. - Clinical endocarditis by modified Walsh Criteria per ID. - Appreciate consult from ID. - Will continue Vancomycin and Gentamicin per ID. Continue rifampin 600mg daily. - Gent levels regularly (next 04/01). (2) Epidural abscess Code(s): G06.2 - EXTRADURAL AND SUBDURAL ABSCESS, UNSPECIFIED SNOMED Code(s): 91803912 Comment: - S/P decompression and epidural abscess drainage 03/24 and 03/26 - Continue IV Vancomycin (day 11) with target of 15-20 per ID, Gent (day /), and Rifampin (3) Intractable low back pain Code(s): M54.5 - LOW BACK PAIN SNOMED Code(s): 69488100609563008 Comment: - Continue IV dilaudid, fentanyl 25mcg patch, oxycodone 1mg po q4 prn. - Baclofen was stopped after concern for some lip swelling after received first dose. - Gabapentin uptitrating and addition of cymbalta 20mg daily by Dr. Price. - Prednisone 10mg daily. (4) Diabetes type 2, controlled Code(s): E11.9 - TYPE 2 DIABETES MELLITUS WITHOUT COMPLICATIONS SNOMED Code(s) : 51661607 Comment: - Glucose 140-290's - Hold metformin while in hospital - Continue on Lispro SSI (5) Hyperlipidemia Code(s): E78.5 - HYPERLIPIDEMIA, UNSPECIFIED SNOMED Code(s): 53018714 Comment: - Continue statin therapy (6) DVT prophylaxis Code(s): DLM1721 - SNOMED Code(s): 685588309 Comment: - SCDs (7) Full code status Code(s): Z78.9 - OTHER SPECIFIED HEALTH STATUS SNOMED Code(s): 502706411 Status and Disposition: Inpatient. Discharge plan for rehab vs NHP, when medically stable.
[2017-03-31] MEDS ORDERED: Insulin LISPRO* 1 UNITS UNIT SUBCUT ONE (20:43)
[2017-03-31] MEDS: amLODIPine TAB* 5 MG PO SCH (20:47)
[2017-04-01] MEDS: oxyCODONE/Acetamin 5/325 MG* TAB PO PRN ×4 (02:20→18:27)
[2017-04-01] MEDS: Vancomycin(*) 750 MG in NS 0.9% 250 ML* 250 ML IVPB SCH ×2 (03:20→15:13)
[2017-04-01] MEDS: Methocarbamol TAB* 500 MG PO PRN ×2 (06:38→17:21)
[2017-04-01 07:00] LABS: Hematocrit 24 % (35-47); Hemoglobin 7.7 g/dl (12.0-16.0); Mean Corpuscular HGB Conc 32 g/dl (31-36); Mean Corpuscular Hemoglobin 27 pg (27-31); Mean Corpuscular Volume 82 fL (80-97); Mean Platelet Volume 7 um3 (7.4-10.4); Red Blood Count 2.89 10^6/ul (4.0-5.4); Red Cell Distribution Width 18 % (10.5-15); White Blood Count 6.2 10^3/ul (3.5-10.8)
[2017-04-01] MEDS: fentaNYL Patch Check Q Shift 1 NOTE SCH ×2 (07:35→18:36)
[2017-04-01] MEDS: Insulin LISPRO* 1 UNITS UNIT SUBCUT SCH ×4 (07:45→22:09)
[2017-04-01] MEDS: Docusate CAP* 100 MG PO SCH ×2 (08:50→22:09)
[2017-04-01] MEDS: Magnesium Oxide TAB* 400 MG PO SCH (08:50)
[2017-04-01] MEDS: Furosemide TAB* 20 MG PO SCH (08:51)
[2017-04-01] MEDS: DULoxetine DR CAP* 20 MG CAP.DR PO SCH (08:51)
[2017-04-01] MEDS: predniSONE TAB* 10 MG PO SCH (08:51)
[2017-04-01] MEDS: Donepezil TAB* 5 MG PO SCH (08:51)
[2017-04-01] MEDS: RiFAMPin CAP* 300 MG CAP PO SCH (08:51)
[2017-04-01] MEDS: Senna TAB PO SCH (08:51)
[2017-04-01] MEDS: Multivitamins/Minerals TAB PO SCH (08:51)
[2017-04-01] MEDS: Famotidine TAB* 20 MG PO SCH (08:51)
[2017-04-01] MEDS: Gabapentin CAP(*) 300 MG PO SCH ×2 (08:51→13:43)
[2017-04-01] MEDS: Atorvastatin* 40 MG TAB PO SCH (08:51)
[2017-04-01] MEDS: Calcium/Vitamin D TAB 250/125* TAB PO SCH (08:52)
[2017-04-01] MEDS: amLODIPine TAB* 5 MG PO SCH (08:52)
[2017-04-01] MEDS: Nystatin TOP POWDER* 15 GM BTL TOPICAL SCH ×3 (08:58→22:09)
--- NOTE | 2017-04-01 11:39 | PN ---
Progress Note - Progress Note Date of Service: 04/01/17 SOAP: Subjective: [S/p lumbar decompression and drainage of epidural abscess on 03/24 and 03/26. Complains of persistent RLE hip to anterior thigh pain and lower extremity spasms. She is unable to determine if the pain has improved since surgery. She is participating in PT and has more pain with movement. Denies headache and nausea. ] Objective: [ Vital Signs: Temp Pulse Resp BP Pulse Ox 97.8 F 71 18 158/54 98 04/01/17 09:32 04/01/17 09:32 04/01/17 10:52 04/01/17 09:32 04/01/17 10:06 General: Alert and sitting up comfortably in chair. Smiling and conversing with visitor. Neuro: Motor and sensory intact. Incision: Intact and without swelling. ] Assessment: [Persistent RLE pain although she seems to be doing very well today. ] Plan: [1. She is cleared from a neurosurgical post-operative standpoint to be discharged to rehab facility. 2. Continue to donna with PT 3. Continue pain management. 4. She will follow up in office in [place] on 04/09/17.]
[2017-04-01] MEDS ORDERED: Gentamicin Trough Level 1 NOTE MISC FOLLOW UP ONE (12:00)
[2017-04-01] MEDS ORDERED: fentaNYL PATCH 25 MCG/HR TRANSDERM SCH (15:00)
--- NOTE | 2017-04-01 16:42 | PN ---
Subjective Date of Service: 04/01/17 Interval History: Patient seen and examined at bedside. Pt is complaining of right leg pain that radiates to her back, she is unable to describe this pain. This morning PT reported that the discomfort improved if they picked her leg up, this isn't relieving the pain this afternoon. Denies fever, chills, shortness of breath, chest discomfort, N/V/D. Family History: Unchanged from Admission Social History: Unchanged from Admission Past Medical History: Unchanged from Admission Objective Active Medications: Acetaminophen (Tylenol Tab*) 650 mg PO Q4H PRN Reason: FEVER/PAIN Amlodipine Besylate (Norvasc Tab*) 5 mg PO DAILY [facility] Atorvastatin Calcium (Lipitor*) 40 mg PO DAILY [facility] Bisacodyl (Dulcolax Supp*) 10 mg [place] DAILY PRN Reason: CONSTIPATION Calcium/Vitamin D (Oscal D Tab 250/125*) 2 tab PO DAILY [facility] Dextrose (D50w Syringe 50 Ml*) 12.5 gm IV PUSH .FOR FS < 60 - SS PRN Reason: FS < 60 Diphenhydramine HCl (Benadryl Iv*) 25 mg IV Q6H PRN Reason: PRURITIS Docusate Sodium (Colace Cap*) 100 mg PO BID [facility] Donepezil HCl (Aricept Tab*) 5 mg PO DAILY [facility] Duloxetine HCl (Cymbalta Cap*) 20 mg PO DAILY [facility] Famotidine (Pepcid Tab*) 20 mg PO DAILY [facility] Fentanyl (Duragesic Patch 25 Mcg/Hr*) 25 mcg TRANSDERM Q72HR [facility] Furosemide (Lasix Tab*) 20 mg PO DAILY [facility] Gabapentin (Neurontin Cap(*)) 300 mg PO TID [facility] Hydromorphone HCl (Dilaudid Inj*) 0.5 mg IV SLOW PU Q4H PRN Reason: PAIN Vancomycin HCl 750 mg/ Sodium (Chloride) 250 mls @ 166.667 mls/hr IVPB Q12H [facility] Gentamicin Sulfate 50 mg/ (Sodium Chloride) 101.25 mls @ 202.5 mls/hr IVPB 1200 [facility] Insulin Human Lispro (Humalog*) 0 units SUBCUT ACHS [facility] Magnesium Oxide (Magox 400 Tab*) 400 mg PO DAILY [facility] Methocarbamol (Robaxin Tab*) 750 mg PO Q6H PRN Reason: MUSCLE SPASMS Multivitamins/Minerals (Theragran/Minerals Tab*) 1 tab PO DAILY ON LICENSE OF [facility] Nystatin (Nystatin Top Powder*) 1 applic TOPICAL TID ON LICENSE OF [facility] Oxycodone/Acetaminophen (Percocet 5/325 Tab*) 1 tab PO Q4H PRN Reason: PAIN Pharmacy Consult (Vancomycin Per Pharmacy*) 1 note FOLLOW UP . PRN Reason: PER PROTOCOL Pharmacy Consult (Gentamicin Adult Per Pharmacy) 1 note FOLLOW UP . PRN Pharmacy Profile Note (Fentanyl Patch Check Q Shift) 1 note N/A 0700,1900 [facility] Pharmacy Profile Note (Vancomycin Trough Check) 1 note FOLLOW UP 1430 ONE Stop: 04/02/17 14:31 Polyethylene Glycol/Electrolytes (Miralax*) 17 gm PO DAILY PRN Reason: CONSTIPATION Prednisone (Deltasone Tab*) 10 mg PO DAILY ON LICENSE OF [facility] Rifampin (Rifampin Cap*) 600 mg PO DAILY ON LICENSE OF [facility] Senna (Senokot Tab*) 2 tab PO DAILY ON LICENSE OF [facility] Vital Signs 03/31/17 03/31/17 03/31/17 17:16 20:02 20:47 Temperature 99.3 F Pulse Rate 88 Respiratory 16 20 16 Rate Blood Pressure 175/62 (mmHg) O2 Sat by Pulse 97 Oximetry 04/01/17 04/01/17 04/01/17 03:36 04:20 06:38 Temperature 98.2 F Pulse Rate 76 Respiratory 12 15 16 Rate Blood Pressure 142/44 (mmHg) O2 Sat by Pulse 97 Oximetry 04/01/17 04/01/17 04/01/17 07:43 08:00 08:37 Temperature 97.8 F Pulse Rate 71 Respiratory 13 13 22 Rate Blood Pressure 158/54 (mmHg) O2 Sat by Pulse 98 98 Oximetry 04/01/17 04/01/17 04/01/17 08:51 08:52 09:32 Temperature 97.8 F Pulse Rate 71 Respiratory 22 18 13 Rate Blood Pressure 158/54 (mmHg) O2 Sat by Pulse 98 Oximetry 04/01/17 04/01/17 04/01/17 10:06 10:51 10:52 Temperature Pulse Rate Respiratory 18 18 Rate Blood Pressure (mmHg) O2 Sat by Pulse 98 Oximetry 04/01/17 04/01/17 04/01/17 11:39 13:43 13:44 Temperature 97.6 F Pulse Rate 79 Respiratory 14 18 18 Rate Blood Pressure 175/57 (mmHg) O2 Sat by Pulse 99 Oximetry 04/01/17 04/01/17 04/01/17 14:52 15:35 15:43 Temperature 97.8 F Pulse Rate 82 Respiratory 18 18 18 Rate Blood Pressure 121/53 (mmHg) O2 Sat by Pulse 99 Oximetry 04/01/17 04/01/17 15:44 16:00 Temperature Pulse Rate Respiratory 18 Rate Blood Pressure (mmHg) O2 Sat by Pulse 99 Oximetry Oxygen Devices in Use Now: None Appearance: NAD, sitting up in the chair Ears/Nose/Mouth/Throat: Mucous Membranes Moist Respiratory: Symmetrical Chest Expansion and Respiratory Effort, Clear to Auscultation Cardiovascular: RRR, - - Grade 2/6 systolic murmur heard best at the right upper sternal border Abdominal: NL Sounds; No Tenderness; No Distention Extremities: No Edema Skin: No Rash or Ulcers Neurological: Alert and Oriented x 3, NL Muscle Strength and Tone Lines/Tubes/Other Access: Clean, Dry and Intact Peripheral IV - site benign Nutrition: Taking PO's Result Diagrams: 04/01/17 06:51 03/29/17 08:04 Additional Lab and Data: . Microbiology and Other Data: Microbiology 03/26/17 06:19 Aerobic Blood Culture - Preliminary Blood Venous No Growth Day 4 Anaerobic Blood Culture - Preliminary No Growth Day 4 Blood Culture - Final 03/26/17 06:14 Aerobic Blood Culture - Preliminary Blood Venous No Growth Day 4 Anaerobic Blood Culture - Preliminary No Growth Day 4 Blood Culture - Final Assess/Plan/Problems-Billing . Assessment: Ms. Barclay is an 81 yo female with osteomyelitis/epidural abscess and BCX growing staph epi. s/p 2 neurosurgeries (03/24, 03/26). Intravascular Endocarditis by Modified Brooks on vancomycin, gent and rifampin. - Patient Problems (1) Bacterial endocarditis Code(s): I33.0 - ACUTE AND SUBACUTE INFECTIVE ENDOCARDITIS SNOMED Code(s): 971554250 Comment: - Bacteremia - BC with Staph epidermidis, repeat BC now with no growth day 5. - No signs of sepsis noted. - Clinical endocarditis by modified Walsh Criteria per ID. - Appreciate consult from ID. - Will continue Vancomycin (day ) and Gentamicin (03/11) per ID. Continue rifampin 600mg daily (day ). - Gent levels regularly. (2) Epidural abscess Code(s): G06.2 - EXTRADURAL AND SUBDURAL ABSCESS, UNSPECIFIED SNOMED Code(s): 92377377 Comment: - With vertebral osteodiskitis - S/P decompression lumar lami and epidural abscess drainage 03/24 and 03/26 - Continue IV Vancomycin (day ) with target of 15-20 per ID, Gent (day 01/08 -14), and Rifampin (day ) (3) Intractable low back pain Code(s): M54.5 - LOW BACK PAIN SNOMED Code(s): 85763933348440531 Comment: - Continue IV dilaudid, fentanyl 25mcg patch, oxycodone 1mg po q4 prn. - Continue cymbalta 20mg daily and Prednisone 10mg daily. (4) Diabetes type 2, controlled Code(s): E11.9 - TYPE 2 DIABETES MELLITUS WITHOUT COMPLICATIONS SNOMED Code(s) : 06654950 Comment: - Glucose 140-290's - HgA1C 6.9 - Hold metformin while in hospital - Continue on Lispro SSI (5) Hyperlipidemia Code(s): E78.5 - HYPERLIPIDEMIA, UNSPECIFIED SNOMED Code(s): 18075164 Comment: - Continue statin therapy (6) DVT prophylaxis Code(s): [id number] - SNOMED Code(s): 127267844 Comment: - SCDs (7) Full code status Code(s): Z78.9 - OTHER SPECIFIED HEALTH STATUS SNOMED Code(s): 142258814 Status and Disposition: Inpatient. Plan for discharge to [facility] tomorrow.
[2017-04-01] MEDS ORDERED: DULoxetine DR CAP* 30 MG CAP.DR PO SCH (20:24)
[2017-04-01] MEDS: Gabapentin CAP(*) 400 MG PO SCH (22:08)
[2017-04-01] MEDS: HYDROmorphone INJ* 1 MG/ML CARPUJECT SYRINGE IV SLOW PU PRN (23:21)
[2017-04-02] MEDS: oxyCODONE/Acetamin 5/325 MG* TAB PO PRN (03:23)
[2017-04-02] MEDS: Vancomycin(*) 750 MG in NS 0.9% 250 ML* 250 ML IVPB SCH (03:24)
[2017-04-02 06:27] LABS: Hematocrit 23 % (35-47); Hemoglobin 7.6 g/dl (12.0-16.0); Mean Corpuscular HGB Conc 33 g/dl (31-36); Mean Corpuscular Hemoglobin 27 pg (27-31); Mean Corpuscular Volume 82 fL (80-97); Mean Platelet Volume 7 um3 (7.4-10.4); Red Blood Count 2.78 10^6/ul (4.0-5.4); Red Cell Distribution Width 18 % (10.5-15)
[2017-04-02 06:41] LABS: EGFR African American 80.2 (>60); EGFR Non-African American 62.3 (>60)
[2017-04-02] MEDS: fentaNYL Patch Check Q Shift 1 NOTE SCH (07:23)
--- NOTE | 2017-04-02 09:09 | PN ---
Progress Note - Progress Note Date of Service: 04/02/17 SOAP: Subjective: CC: epidural abscess HPI: 81 yo woman with AVR and 2 months low back pain; L spine vertebral osteodiskitis and epidural abscess s/p decompression x2. R leg pain down to 2/ 10. Not worse with movement. No back pain. Objective: [] Vital Signs Temp 36.9 C 04/02/17 03:28 Pulse 94 04/02/17 03:28 Resp 16 04/02/17 05:23 BP 180/58 04/02/17 03:28 Pulse Ox 99 04/02/17 03:28 Intake & Output 04/01/17 04/02/17 04/02/17 18:59 06:59 18:59 Intake Total 861 1157 Output Total 1000 1050 500 Balance -139 107 -500 Intake: IV Fluids 317 NS 40 vancomycin 277 IVPB 391 gentamycin 107 vancomycin 284 Oral 470 840 Output: Urine 1000 1050 500 Other: # Bowel Movements 0 Estimated Stool Amount Small Large Gen:awake, no distress HEENT: L conj hemorrorhage Neck:supple Heart:RRR no murmur Lungs:CTA BL Abd:+BS NTND soft Skin: no rash; spine incision intact no erythema MSK: no hip tenderness and negative R hip log roll Assessment: 1. septicemia with Staph epi bacteremia (cleared) due to epidural abscess, vertebral osteodiskitis, infective endocarditis 2. 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 dementia Plan: 1. continue vancomycin goal tr 15-20 and rifampin 600 mg PO daily day . gentamicin 60 mg IV Q12hrs day 06/12. CBC, CMP, CRP, vancomycin trough Q7days, results to my office, fu with me 2-3 weeks. Discussed with Yen Pascual NP
[2017-04-02] MEDS: Insulin LISPRO* 1 UNITS UNIT SUBCUT SCH ×2 (09:14→12:38)
[2017-04-02] MEDS: Calcium/Vitamin D TAB 250/125* TAB PO SCH (09:23)
[2017-04-02] MEDS: Docusate CAP* 100 MG PO SCH (09:23)
[2017-04-02] MEDS: RiFAMPin CAP* 300 MG CAP PO SCH (09:23)
[2017-04-02] MEDS: Atorvastatin* 40 MG TAB PO SCH (09:23)
[2017-04-02] MEDS: Furosemide TAB* 20 MG PO SCH (09:23)
[2017-04-02] MEDS: Donepezil TAB* 5 MG PO SCH (09:23)
[2017-04-02] MEDS: Famotidine TAB* 20 MG PO SCH (09:24)
[2017-04-02] MEDS: Multivitamins/Minerals TAB PO SCH (09:24)
[2017-04-02] MEDS: Gabapentin CAP(*) 400 MG PO SCH (09:24)
[2017-04-02] MEDS: amLODIPine TAB* 5 MG PO SCH (09:24)
[2017-04-02] MEDS: predniSONE TAB* 10 MG PO SCH (09:25)
[2017-04-02] MEDS: Senna TAB PO SCH (09:25)
[2017-04-02] MEDS: Magnesium Oxide TAB* 400 MG PO SCH (09:25)
[2017-04-02] MEDS: Methocarbamol TAB* 500 MG PO PRN (09:29)
[2017-04-02] MEDS: Nystatin TOP POWDER* 15 GM BTL TOPICAL SCH (09:31)
--- NOTE | 2017-04-02 09:37 | DCNOTE ---
Subjective Date of Service: 04/02/17 Interval History: Patient seen and examined at bedside. Patient having some right leg pain but it has significantly improved since the addition of neurontin. Patient denies fevers. Family History: Unchanged from Admission Social History: Unchanged from Admission Past Medical History: Unchanged from Admission Objective Active Medications: Acetaminophen (Tylenol Tab*) 650 mg PO Q4H PRN Amlodipine Besylate (Norvasc Tab*) 5 mg PO DAILY [facility] Atorvastatin Calcium (Lipitor*) 40 mg PO DAILY [facility] Bisacodyl (Dulcolax Supp*) 10 mg [place] DAILY PRN Calcium/Vitamin D (Oscal D Tab 250/125*) 2 tab PO DAILY [facility] Diphenhydramine HCl (Benadryl Iv*) 25 mg IV Q6H PRN Docusate Sodium (Colace Cap*) 100 mg PO BID [facility] Donepezil HCl (Aricept Tab*) 5 mg PO DAILY [facility] Duloxetine HCl (Cymbalta Cap*) 30 mg PO DAILY [facility] Famotidine (Pepcid Tab*) 20 mg PO DAILY [facility] Fentanyl (Duragesic Patch 25 Mcg/Hr*) 25 mcg TRANSDERM Q72HR [facility] Furosemide (Lasix Tab*) 20 mg PO DAILY [facility] Gabapentin (Neurontin Cap(*)) 400 mg PO TID [facility] Hydromorphone HCl (Dilaudid Inj*) 0.5 mg IV SLOW PU Q4H PRN Vancomycin HCl 750 mg/ Sodium (Chloride) 250 mls @ 166.667 mls/hr IVPB Q12H [facility] Gentamicin Sulfate 50 mg/ (Sodium Chloride) 101.25 mls @ 202.5 mls/hr IVPB 1200 [facility] Insulin Human Lispro (Humalog*) 0 units SUBCUT ACHS [facility] Magnesium Oxide (Magox 400 Tab*) 400 mg PO DAILY [facility] Methocarbamol (Robaxin Tab*) 750 mg PO Q6H PRN Multivitamins/Minerals (Theragran/Minerals Tab*) 1 tab PO DAILY [facility] Nystatin (Nystatin Top Powder*) 1 applic TOPICAL TID [facility] Oxycodone/Acetaminophen (Percocet 5/325 Tab*) 1 tab PO Q4H PRN Pharmacy Consult (Vancomycin Per Pharmacy*) 1 note FOLLOW UP . PRN Pharmacy Consult (Gentamicin Adult Per Pharmacy) 1 note FOLLOW UP . PRN Pharmacy Profile Note (Vancomycin Trough Check) 1 note FOLLOW UP 1430 ONE Polyethylene Glycol/Electrolytes (Miralax*) 17 gm PO DAILY PRN Prednisone (Deltasone Tab*) 10 mg PO DAILY [facility] Rifampin (Rifampin Cap*) 600 mg PO DAILY [facility] Senna (Senokot Tab*) 2 tab PO DAILY [facility] 04/02/17 04/02/17 03:28 05:23 Temperature 98.4 F Pulse Rate 94 Respiratory 16 16 Rate Blood Pressure 180/58 (mmHg) O2 Sat by Pulse 99 Oximetry Oxygen Devices in Use Now: None Appearance: sitting up in bed, NAD Eyes: No Scleral Icterus, PERRLA Ears/Nose/Mouth/Throat: NL Teeth, Lips, Gums Neck: NL Appearance and Movements; NL JVP Respiratory: Symmetrical Chest Expansion and Respiratory Effort, Clear to Auscultation Cardiovascular: RRR, - - grade 2 systolic murmur Abdominal: NL Sounds; No Tenderness; No Distention Extremities: No Edema Skin: No Rash or Ulcers Neurological: Alert and Oriented x 3, NL Muscle Strength and Tone, - Lines/Tubes/Other Access: Clean, Dry and Intact Peripheral IV Nutrition: Taking PO's Result Diagrams: 04/02/17 06:11 04/02/17 06:11 Additional Lab and Data: . Diagnostic Imaging: Assess/Plan/Problems-Billing .Assessment: Ms. Barclay is an 81 yo female with osteomyelitis/epidural abscess and BCX growing staph epi. s/p 2 neurosurgeries (03/24, 03/26). Intravascular Endocarditis by Modified Hendry on vancomycin, gent and rifampin. - Patient Problems (1) Bacterial endocarditis (2) Epidural abscess (3) Intractable low back pain (4) Diabetes type 2, controlled (5) Hyperlipidemia (6) DVT prophylaxis (7) Full code status Status and Disposition: Inpatient. Stable to be discharged home.
[2017-04-02] MEDS ORDERED: Gabapentin CAP(*) 100 MG PO ONE (10:14)
[2017-04-02 12:47] VITALS: BP 121/50
--- NOTE | 2017-04-02 13:10 | DS ---
CC: KIAH Montenegro; Dr. Joyce; Dr. Benedict; Dr. Daniels* DISCHARGE SUMMARY: DATE OF ADMISSION: 03/21/17 DATE OF DISCHARGE: 04/02/17 PRIMARY CARE PROVIDER: KIAH Berrios ATTENDING PHYSICIAN: Dr. Sonu Campos* (report dictated by Yen Pascual NP ) PRIMARY DIAGNOSES: 1. Staph epidermidis endocarditis. 2. Epidural abscess status post lumbar laminectomy. 3. Septicemia with Staph epi bacteremia due to epidural abscess. 4. Vertebral osteo diskitis. 5. 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 SECONDARY DIAGNOSES: 1. Aortic valve replacement June 2016. 2. Diabetes. 3. Hypertension. 4. Breast cancer status post right mastectomy. CONSULTATIONS WHILE IN THE HOSPITAL: 1. Dr. Mukund Benedict, Infectious Disease. 2. Dr. Abhinav Daniels, Neurosurgery. 3. Dr. Joyce, Pain. STUDIES WHILE IN THE HOSPITAL: 1. Transthoracic echocardiogram 03/24/17. Global left ventricular wall motion contractility within normal limits. The estimated ejection fraction 55% to 60%. Bioprosthetic aortic valve is present. Median gradient aortic valve 12.8 mmHg. Bioprosthetic aortic valve appears to be functioning normally. There is trace mild mitral regurgitation. There is mild to moderate regurgitation. There is evidence of mild pulmonary hypertension. There was no pericardial effusion. Image quality not good enough to exclude diagnosis of valvular mass/vegetation. 2. Lumbar AP/lateral intraoperative control films 03/24/17. 3. Transthoracic echocardiogram 03/25/17. No aortic vegetation present. No vegetation viewed on the mitral valve. No vegetation on the tricuspid valve. No vegetation on the pulmonic valve. Global left ventricular wall motion and contractility within normal limits. Normal left ventricular systolic function. The estimated ejection fraction if 60% to 65%. MEDICATION AT THE TIME OF DISCHARGE: New Medications: 1. Vancomycin 750 mg IV every 12 hours for 7 weeks. 2. Gentamicin 50 mg IV every 24 hours for 5 days. 3. Rifampin 600 mg oral daily for 7 weeks. 4. Tylenol 650 mg oral every 4 hours as needed. 5. Dulcolax 10 mg rectal daily as needed. 6. Cymbalta 30 mg oral daily. 7. Colace 100 mg oral twice daily. 8. Neurontin 600 mg oral 3x daily. 9. Heparin flush per protocol 6 a.m. and 6 p.m. 10. Lispro sliding scale subcu before meals and bedtime. 11. Robaxin 500 mg oral every 6 hours as needed for muscle spasm. 12. Nystatin 1 application topical 3x daily. 13. MiraLax 17 g oral daily as needed. 14. Senna 2 tablets oral daily. 15. Amlodipine 5 mg oral daily. 16. Fentanyl patch 25 micrograms transdermal every 72 hours. 17. Fentanyl patch check 7 a.m. and 7 p.m. The following medications are medications the patient came in on which she should continue: 1. Prednisone 10 mg oral daily. 2. Percocet 5/325 one tablet oral every 4 hours as needed. 3. Aricept 5 mg daily. 4. Lipitor 40 mg daily. 5. Multivitamin 1 tablet daily. 6. Aspirin 325 mg oral daily. 7. Megace 400 mg oral daily. 8. Lasix 20 mg oral daily. 9. Zantac 150 mg oral daily. 10. Metformin 750 mg oral twice daily. 11. Calcium 300 + vitamin D 1 tablet oral daily. HISTORY OF PRESENT ILLNESS AND HOSPITAL COURSE: Ms. Barclay is an 81-year-old female who was referred to the [facility] by her family nurse practitioner. She had had an MRI on 03/10/17 and was sent to [facility] [place] review for moderate to severe spinal canal stenosis and right neural foraminal stenosis. In the review of the MRI there was concern for an epidural collection that might represent osteomyelitis or epidural abscess. The patient was referred to the emergency room for further evaluation. At that time she was on a Fentanyl patch as well as Percocet. She was admitted to the medical floor and placed on IV antibiotics. She was seen by Dr. Benedict from Infectious Disease and antibiotics were altered, and eventually she was placed on gentamicin, vancomycin and Rifampin after cultures grew Staph epidermidis. She was taken to the operating room on 03/24/17 for a lumbar laminectomy at L4-5 with excision of the herniated disc at L4-5. She then returned to the operating room on 03/27/17 for revision of this laminectomy. On admission she was found to have 4 out of 4 blood cultures positive for Staph epidermidis. Repeat blood cultures were drawn on 03/26 which showed clearance of the bacteria from her bloodstream. She had a transthoracic echocardiogram, as well as a transesophageal echocardiogram, that did not show any evidence of abscess seen. She met Walsh criteria for endocarditis and will be treated as such. The plan is for the patient to have 2 weeks of gentamicin which she will complete in 4 days, as well as a total of 8 weeks of rifampin and vancomycin. Postoperatively the patient had significant issues with pain control. She was seen in consultation by Dr. Joyce from Pain who recommended starting gabapentin for nerve pain, as well as Cymbalta and a low dose prednisone. In addition she had Percocet and a fentanyl patch for pain control. With this she was able to start to work with physical therapy, yet she will need rehab before she would be safe to return home. For this reason placement was sought out at [facility] and today she is stable for transfer there. For her diabetes metformin was held and her blood glucose was controlled with a Lispro sliding scale. Metformin will be started on discharge. For her hyperlipidemia her statin was controlled. She did have intermittent hypertension and was started on Norvasc during her hospitalization here. On the day of discharge vitals were as follows: Temperature 98.1, heart rate 79, respiratory rate 20, blood pressure 131/53, oxygen saturation 97% on room air. As this point she is stable for discharge. DISCHARGE PLAN: The patient is discharged on a consistent carb diet with activity as tolerated. Followup instructions include the followin. She will continue on vancomycin and rifampin for a total of 7 additional weeks. She should have a weekly CMP, CBC, CRP and vancomycin trough. Results should be called to Dr. Benedict at [phone]. 2. She will need to see Dr. Daniels at the [place] office on 04/09/17. This is when eveline should be removed. 3. Gentamicin will continue for an additional 5 days with a stop date of . 4. [facility] can be consulted for additional advice for titration of pain medications. The patient should return to the hospital for any high fever, worsening shortness of breath. I have reviewed all the instructions with the patient and her daughter. She is agreeable with her discharge today. This is a summarized report of a complex medical history and hospital stay. For more details, please see the entire medical record. TIME SPENT: Time for the discharge was 60 minutes and over 35 minutes were spent with the patient and her family discussing medications at discharge and followup instructions. CONDITION ON DISCHARGE: Stable. Reviewed by YEN PASCUAL NP 04/02/2017 1830 [id number]/CPS #: [id number] JACOB
[2017-04-02] MEDS ORDERED: Gabapentin CAP(*) 300 MG PO SCH (14:00)
[2017-04-02] MEDS ORDERED: Vancomycin Trough Check NOTE FOLLOW UP ONE (14:30)
--- NOTE | 2017-04-14 10:26 | OP ---
DATE OF OPERATION: 03/26/17 - ROOM #336 DATE OF : 33 PRIMARY SURGEON: Abhinav Daniels MD [employer] CLE[employer]ER: LOW Wade. ANESTHESIA: General. PRE-OP DIAGNOSIS: Severe leg pain post lumbar decompression. POST-OP DIAGNOSIS: Severe leg pain post lumbar decompression. OPERATIVE PROCEDURE: Exploration of prior lumbar decompression with decompressive laminectomy, L5-S1. INDICATION: This lady had previously undergone a decompression on 03/24/17 for a presumed epidural abscess and stenosis. No abscess was found and postoperatively she had severe leg pain prompting this return to the OR. The concern was that she had nerve root compromise that had not been relieved at the time of her initial exploration. DESCRIPTION OF PROCEDURE: After satisfactory general anesthesia was obtained, she was placed on the operating table in the prone position with the chest supported on the Simon frame and the back slightly flexed. The lumbar region was then clipped, prepped, and in a sterile manner for lumbar exposure and the previous incision reopened. This incision was reopened down to the level of the prior decompression. Additional inferior decompression was carried out until the posterior elements of L5 had been removed. Initial superior exposure was also done. No obvious compressive etiology was found. At the conclusion of the decompression, the canal was noted to be clear from L4 down to the sacrum. It was felt that a satisfactory decompression had been achieved. After assuring adequate hemostasis, the wound was thoroughly irrigated after which drain was placed in the epidural space and tunneled out toward the right side. The fascia was then reapproximated with 0 Vicryl suture. The subcutaneous tissue was closed with 3-0 Vicryl suture, and the skin closed with skin clips. The estimated blood loss was less than 50 cc, and the final sponge , padding, and needle counts were correct. The patient was taken to the recovery room, extubated, and in stable condition. [id number]/[facility] #: [id number] [facility]
--- NOTE | 2017-04-14 10:35 | OP ---
DATE OF OPERATION: 03/24/17 - ROOM #336 DATE OF : 33 PRIMARY SURGEON: Abhinav Daniels MD. GAMING TABLE OPERATOR: LOW Gonzalez. ANESTHESIOLOGIST: Robert Esquivel MD ANESTHESIA: General. PRE-OP DIAGNOSES: Lumbar spinal stenosis, lumbar epidural abscess, L4-5 on the right. POST-OP DIAGNOSES: Lumbar spinal stenosis L4-5, herniated nucleus pulposus L4- 5 on the right. OPERATIVE PROCEDURE: Decompressive lumbar laminectomy, L4-5 with exploration of epidural space and diskectomy at L4-5 on the right with microdissection. DESCRIPTION OF PROCEDURE: After satisfactory general anesthesia was obtained, the patient was placed on the operating table in a prone position with the chest supported on the Simon frame, the back slightly flexed. The lumbar region was then clipped, prepped, and draped in a sterile manner for lumbar laminectomy, and the skin incision was outlined from L4 to L5. This incision was infiltrated with 1% Xylocaine with epinephrine, after which it was turned down sharply to the level of the lumbar fascia. The fascia was divided along the spinous processes of L4 and L5 and the paraspinal musculature from these posterior elements using the periosteal elevator and monopolar cautery. An intraoperative x-ray was obtained verifying proper interspace localization, after which the initial step in the procedure was the decompression at L4-5. This was done by removing the spinous processes of L4 and L5 with a Leksell rongeur. The remaining portion of the base of the spinous process of the L4 in medial aspect of the facet complex was thinned out with a Midas Dominik drill. Preoperative imaging had suggested the presence of an enhancing epidural mass extending up behind the L4 vertebral body on the right side. A generous decompression was carried out at L4-5. No claudette purulent collections were noted. There was noted to be a prominent protruding disk at this level. Utilizing microdissection several fragments of disk material were removed from the disk space out laterally adjacent to the L4 nerve root. A culture was obtained of the interspace itself and sent for microbiology. At conclusion of the decompression, both the L4 and L5 nerve roots were noted to be free in their course. It was felt that a satisfactory decompression had been achieved. After assuring adequate hemostasis, the wound was thoroughly irrigated, afterwards the drain was placed in the epidural space and tunneled out throughout the right side. The fascia was reapproximated with 0-Vicryl suture. The subcutaneous tissue was closed with 3-0 Vicryl suture and the skin closed with skin clips. The estimated blood loss was less than 50 cc and the final sponge, padding, and needle counts were correct. The patient was taken to the recovery room, extubated, and in stable condition. [id number]/[facility] #: [id number] MTDD
== END 2017-04-02 13:00 | DRG 28 ==
LOC: ED 14:32 → MED 16:22 → SSU 03-24 20:47
PROVIDERS: ADMIT Internal Medicine; ATTEND Hospitalist
PROC: 009U0ZZ Drainage of Spinal Canal, Open Approach (ICD-10-PCS; 2017-03-24)
PROC: 0SB20ZZ Excision of Lumbar Vertebral Disc, Open Approach (ICD-10-PCS; 2017-03-24)
PROC: 00NY0ZZ Release Lumbar Spinal Cord, Open Approach (ICD-10-PCS; principal; 2017-03-24 14:30)
PROC: B24BZZ4 Ultrasonography of Heart with Aorta, Transesophageal (ICD-10-PCS; 2017-03-25)
PROC: 00NY0ZZ Release Lumbar Spinal Cord, Open Approach (ICD-10-PCS; 2017-03-26)
PROC: 009U0ZZ Drainage of Spinal Canal, Open Approach (ICD-10-PCS; 2017-03-26)
PROC: 02HV33Z Insertion of Infusion Device into Superior Vena Cava, Percutaneous Approach (ICD-10-PCS; 2017-04-02)
DX: G06.2 Extradural and subdural abscess, unspecified (principal); I33.0 Acute and subacute infective endocarditis; R78.81 Bacteremia; B95.7 Other staphylococcus as the cause of diseases classified elsewhere; I27.20 Pulmonary hypertension, unspecified; I08.1 Rheumatic disorders of both mitral and tricuspid valves; E11.9 Type 2 diabetes mellitus without complications; T82.6XXA Infection and inflammatory reaction due to cardiac valve prosthesis, initial encounter; E78.5 Hyperlipidemia, unspecified; I10 Essential (primary) hypertension; M46.47 Discitis, unspecified, lumbosacral region; M48.061 Spinal stenosis, lumbar region without neurogenic claudication; F03.90 Unspecified dementia, unspecified severity, without behavioral disturbance, psychotic disturbance, mood disturbance, and anxiety; R32 Unspecified urinary incontinence; M51.26 Other intervertebral disc displacement, lumbar region; Z79.4 Long term (current) use of insulin; Z95.2 Presence of prosthetic heart valve; Z85.3 Personal history of malignant neoplasm of breast; Z95.5 Presence of coronary angioplasty implant and graft; Z90.11 Acquired absence of right breast and nipple; Z82.49 Family history of ischemic heart disease and other diseases of the circulatory system; Z79.52 Long term (current) use of systemic steroids; Z79.82 Long term (current) use of aspirin
CPT/HCPCS: 36415; 72100; 80048; 80053; 80170; 80202; 81003; 82565; 83036; 83605; 84520; 85025; 85610; 85652; 86140; 86850; 86900; 86901; 87040; 87070; 87073; 87077; 87150; 87186; 87205; 93306; 93312; 93325; 94760; 99156; 99157; 99214; A9270-GY; C1751; G0463; J0692; J1100; J1170; J1200; J1580; J1644; J1885; J2001; J2250; J2310; J2405; J2704; J3010; J3370; J7512

== ENCOUNTER 2019-04-07 13:32 | Emergency (ER) | payer MEDICARE ==
[2019-04-07 14:10] VITALS: BP 148/60
--- NOTE | 2019-04-07 14:25 | UC ---
Skin Complaint HPI - HPI Summary HPI Summary: 83-year-old female who had a right-sided breast implant 30 years ago in [place]. She does not know the type of implant. Her states over the past month it has become larger and more tense and mildly bruised. She denies any fever or chills or any overall feeling of illness. 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 - History of Current Complaint Chief Complaint: UCGeneralIllness Time Seen by Provider: 04/07/19 14:23 Stated Complaint: PERSONAL Hx Obtained From: Patient, Family/Boiler Fireman - also is informative about the medical history. ?: No Onset/Duration: Gradual Onset Skin Exposure Onset/Duration: Weeks Ago - The states when they put in the breast implant it has always been larger than the left breast however the past month it has increased in size with mild bruising and has become more tense. Timing: Constant Onset Severity: Mild Current Severity: Moderate Pain Intensity: 8 Location: Other - Right breast. Character: Swelling Aggravating Factor(s): Touch Alleviating Factor(s): Nothing Associated Signs & Symptoms: Positive: Negative - Allergy/Home Medications Allergies/Adverse Reactions: Allergies Allergy/AdvReac Type Severity Reaction Status Date / Time No Known Allergies Allergy Verified 04/07/19 14:10 Home Medications: Home Medications Aspirin [Adult Low Dose Aspirin EC] 81 mg PO DAILY 04/07/19 [History Confirmed 04/07/19] Cetirizine* [ZyrTEC 10 MG TAB*] 10 mg PO DAILY 04/07/19 [History Confirmed 04/07] Levothyroxine TAB* [Synthroid TAB*] 25 mcg PO DAILY 04/07/19 [History Confirmed 04/07/19] Pantoprazole TAB * [Protonix TAB*] 40 mg PO DAILY 04/07/19 [History Confirmed ] PMH/Surg Hx/FS Hx/Imm Hx Previously Healthy: Yes Endocrine History: Diabetes, Dyslipidemia Cardiovascular History: Hypertension - Surgical History Surgical History: Yes Surgery Procedure, Year, and Place: Rt MASTECTOMY - CANCER. APPENDECTOMY. CARDIAC STENTS- PT DOES NOT HAVE INFORMATION ON THEM - ONLY SCAN 1.5T - Family History Known Family History: Positive: Hypertension - Social History Lives: With Family Alcohol Use: None Substance Use Type: None Smoking Status (MU): Never Smoked Tobacco - Immunization History Most Recent Influenza Vaccination: Unknown Most Recent Pneumonia Vaccination: Never Review of Systems All Other Systems Reviewed And Are Negative: Yes Skin: Positive: Bruising - Mild bruising to the right breast. The right breast is quite large and tense. No erythema, nontender on palpation. Musculoskeletal: Positive: Other: - Patient has chronic right sciatica however she has full range of motion today and that has not been bothering her anymore than usual. Is Patient Immunocompromised?: No Physical Exam Triage Information Reviewed: Yes Completion Of Physical Exam Limited Due To: Dementia, Other - Patient answers most questions appropriately although when asked about dates she is unsure and looks to her the answer. Appearance: Well-Appearing, No Pain Distress, Well-Nourished Vital Signs: Initial Vital Signs Temp 97.7 F 04/07/19 14:00 Pulse 66 04/07/19 14:00 Resp 16 04/07/19 14:00 BP 148/60 04/07/19 14:00 Pulse Ox 100 04/07/19 14:00 Vital Signs Reviewed: Yes Respiratory: Positive: Lungs clear, Normal breath sounds, No respiratory distress, No accessory muscle use Cardiovascular: Positive: RRR, No Murmur, Pulses Normal, Brisk Capillary Refill Abdomen Description: Positive: Nontender, No Organomegaly, Soft. Negative: CVA Tenderness (R), CVA Tenderness (L) Bowel Sounds: Positive: Present Musculoskeletal Exam: Normal - Good peripheral pulses neuro sensation capillary refill. Negative straight leg raise. Calves bilaterally are nontender. Neurological Exam: Normal Psychological Exam: Normal Skin: Positive: Other - The right breast is significantly larger and tense. Nontender on palpation and no erythema. No drainage. There is minimal bruising noted. Course/Dx - Course Course Of Treatment: The patient is comfortable here. I was able to get her into an appointment with her primary care provider tomorrow at 11 AM. I had spoken with Asha at [facility] and she requested a sonogram be done however ultrasound was not available to do that today. - Diagnoses Provider Diagnosis: Breast implant status Discharge ED - Sign-Out/Discharge Documenting (check all that apply): Patient Departure All imaging exams completed and their final reports reviewed: No Studies - Discharge Plan Condition: Good Disposition: HOME Referrals: Mukund Chance MD [Primary Care Provider] - Additional Instructions: Definite follow-up tomorrow at 11:00 [facility] with your primary care provider. If you develop fever, chills, vomiting your to go to the emergency room for further treatment. - Billing Disposition and Condition Condition: GOOD Disposition: Home - Attestation Statements Provider Attestation: Per institutional requirements, I have reviewed the chart,. I did not personally evaluate, interact with , or disposition this patient.
== END 2019-04-07 15:30 | disposition home or self-care (01) ==
LOC: UCCORT 13:32
DX: N62 Hypertrophy of breast (principal); Z98.82 Breast implant status; S20.01XA Contusion of right breast, initial encounter; X58.XXXA Exposure to other specified factors, initial encounter; Y92.9 Unspecified place or not applicable; E11.9 Type 2 diabetes mellitus without complications; I10 Essential (primary) hypertension; Z85.3 Personal history of malignant neoplasm of breast
CPT/HCPCS: 99212; G0463